=== PATIENT | male | born 1950 | race Caucasian/White ===

== ENCOUNTER 2017-07-14 07:42 | Observation (INO) ==
[2017-07-14] MEDS ORDERED: Acetaminophen 325 MG TABLET PO PRN (09:56)
[2017-07-14] MEDS ORDERED: Naloxone 0.4 MG/ML INJ IVP PRN (09:56)
--- NOTE | 2017-07-14 10:48 | Internal Med History&Physical ---
Date of Encounter: 07/14/17 Time of Encounter: 10:15 Assessment and Plan (1) Pre-syncope Current visit: Yes Status: Acute Patient presenting with presyncopal symptoms due to low blood pressure. Could be related to use of diabetic medications causing frequent urination and dehydration. We will check orthostatic blood pressure. Monitor vital signs. Monitor with telemetry. Trend troponins. Gentle hydration. (2) Coronary artery disease Current visit: Yes Status: Chronic Patient presenting with lightheadedness similar in nature to his symptoms during prior episode of coronary event. We will trend troponins. Monitor with telemetry. Continue home medications. We will get 2-D echocardiogram. Qualifiers: Coronary Disease-Associated Artery/Lesion type: [place] artery [place] vs. transplanted heart: [place] heart Associated angina: with other forms of angina Qualified Code(s): I25.118 - Atherosclerotic heart disease of [place] coronary artery with other forms of angina pectoris (3) Diabetes mellitus Current visit: Yes Status: Chronic Monitor blood sugars. Sliding scale insulin. Diabetic diet. Qualifiers: Diabetes mellitus type: type 2 Diabetes mellitus intermediate insulin use: without intermediate use Diabetes mellitus complication status: with circulatory complication Diabetes mellitus complication detail: with other circulatory complications Qualified Code(s): E11.59 - Type 2 diabetes mellitus with other circulatory complications (4) Essential hypertension Current visit: Yes Status: Chronic Monitor blood pressure. Resume Home medications if blood pressure is stable. (5) Chronic congestive heart failure Current visit: Yes Status: Chronic Not in acute exacerbation. Continue home medications. Qualifiers: Heart failure type: combined systolic and diastolic Qualified Code(s): I50.42 - Chronic combined systolic (congestive) and diastolic (congestive) heart failure (6) Atrial fibrillation and flutter Current visit: Yes Status: Suspected EKG done in the ER shows junctional rhythm. Suspect underlying atrial fibrillation. Place him on patient on telemetry. Unclear if patient has a history of A. fib. Will repeat EKG here. Get 2-D echocardiogram. (7) DVT prophylaxis Current visit: Yes Status: Acute With subcutaneous heparin Internal Medicine - H&P: HPI Chief complaint: Lightheadedness and low blood pressure Admitted From: Emergency Dept Plans for Post Hospital Care: Home History of present illness: Mr. Velásquez is a 67 year old male patient with a history of prior coronary artery disease, and CABG, cardiomyopathy, diabetes mellitus status post pacemaker and AICD placement, hypertension, hyperlipidemia presented to [place] [facility] with complaints of lightheadedness. This occurred earlier this morning when the patient was standing N home. He suddenly felt very dizzy. He sat down and checked his blood pressure and according to him it was in the 60s. He had a similar episode during a previous heart attack and was concerned about it so he took nitroglycerin and called EMS. By the time EMS came to bring him here his symptoms had completely resolved. He notes that his been having some episodes of lightheadedness over the past couple of weeks. He had been started on Jardiance 3 weeks back for his diabetes in addition to onglyza that he was already taking. He has been having frequent urination while he was on Jardiance so he stopped taking it about one week back. He also has diarrhea related to metformin use. He denies any chest pain or palpitations. No nausea or vomiting. He does get have chronic dyspnea on exertion related to his cardiomyopathy. His last 2-D echocardiogram done here in 2014 showed EF of 30-35%. He was sent over for hospitalization as the hospitalist at [facility] did not feel comfortable keeping the patient there given his prior cardiac history. Past Med Surg Social Fam HX - Past Medical History Attestation: Yes The following information was validated with the patient. Source: patient Medical history: arthritis, atrial fibrillation, cardiomyopathy, CHF, COPD, coronary artery disease, diabetes, GERD, hyperlipidemia, hypertension, migraine , myocardial infarction Psychiatric history: depression - Past Surgical History Surgical History: angioplasty/stent, coronary bypass (CABG), pacemaker/AICD - Social History Smoking Status: Former smoker Smokeless Tobacco Status: No Alcohol use: rarely Drug use: none - Family History Father Living Status: Hx Family Cardiac Disorders: Yes ([place]) Internal Medicine - H&P: Meds Aspirin [Lo-Dose Aspirin EC] 81 mg PO DAILY 12/03/15 [History] Atorvastatin [Lipitor] 80 mg PO HS 12/03/15 [History] Carvedilol 12.5 mg PO BID 12/03/15 [History] Fenofibrate [Lofibra] 160 mg PO DAILY 12/03/15 [History] Furosemide [Lasix] 40 mg PO DAILY 12/03/15 [History] Gabapentin [Neurontin] 300 mg PO TID 12/03/15 [History] Hydrocodone/Acetaminophen [[place] 5-325 Tablet] 1 each PO 3-4XD PRN #8 tablet [Rx] Metformin HCl [Glucophage] 1,000 mg PO BID 12/03/15 [History] [place]-3/Dha/Epa/Fish Oil [Fish Oil [place]-3 Softgel] 1 each PO DAILY 12/03/15 [ History] Saxagliptin HCl [Onglyza] 5 mg PO DAILY 12/03/15 [History] glipiZIDE [Glipizide] 10 mg PO DAILY 12/03/15 [History] Losartan [Cozaar] 50 mg PO DAILY 07/14/17 [History] 3 Allergy/AdvReac Type Severity Reaction Status Date / Time No Known Allergies Allergy Verified 07/14/17 05:31 All Systems PM: A 10-system review of systems was performed and is negative for pertinent findings except as documented above in the HPI. - Constitutional Constitutional: falls, no chills, no fever(s), no night sweats - EENT Eyes: no change in vision, no discharge, no pain, no photophobia Ears: no ear discharge, no ear pain, no tinnitus Nose, mouth and throat: no dysphagia, no nasal discharge, no neck pain, no sore throat - Cardiovascular Cardiovascular ROS IM: no chest pain, no diaphoresis, no dyspnea, no lightheadedness, no palpitations, no syncope - Respiratory Respiratory: no cough, no dyspnea, no wheezing, no excessive phlegm production - Gastrointestinal Gastrointestinal: no abdominal pain, no diarrhea, no hematemesis, no hematochezia, no melena, no nausea, no vomiting - Musculoskeletal Musculoskeletal ROS IM: no numbness, no tingling - Integumentary Integumentary IM: no rash, no unusual bruising - Neurological Neurological ROS: no confusion, no convulsions, no focal weakness, no numbness, no tingling, no tremor(s) - Hematologic/Lymphatic Hematologic/Lymphatic: no easy bruising - Constitutional Vitals: Temp Pulse Resp BP Pulse Ox 97.5 F L 87 16 137/96 96 07/14/17 09:25 07/14/17 09:25 07/14/17 09:25 07/14/17 09:25 07/14/17 09:25 General appearance: Present: cooperative, A&O X 3, answers questions appropriately - Neck Neck exam general surgery: Present: supple, trachea midline. Absent: lymphadenopathy - Respiratory Respiratory exam: Present: CTAB. Absent: accessory muscle use, rales, rhonchi, wheezes - Cardiovascular Cardiovascular exam: Present: RRR, +S1, +S2. Absent: diastolic murmur, gallop, rubs, systolic murmur - GI/Abdominal GI/Abdominal exam: Present: normal bowel sounds, soft, no peritoneal signs. Absent: distended, tenderness - Extremities Exam Extremities exam: Present: warm, radial pulses palpable and symmetrical. Absent : calf tenderness, cyanotic, pedal edema - Neurological Exam Neurological exam: Present: CN II-XII intact, oriented X3, no focal deficits. Absent: facial droop, speech deficit - Skin Skin exam: Present: dry, intact Internal Med - H&P Results - Labs Labs: WBC 8.5, hemoglobin 16.1, platelets 240, creatinine 1.38, troponin less than 0.03 - EKG Data -: EKG Interpreted by Myself - EKG Data EKG comments: 07/14/17 10:50 EKG done in the ER shows junctional rhythm/ Afib 07/14/17 10:54 - Impressions No acute infiltrate. Cardiomegaly
[2017-07-14] MEDS ORDERED: Ringers Solution, Lactated 1,000 ML IVC SCH (11:00)
[2017-07-14] MEDS ORDERED: Dextrose Gel 15 GM/37.5 ML TUBE PO PRN ×2 (11:10)
[2017-07-14] MEDS ORDERED: D5% in Water 1,000 ML IVC PRN (11:10)
[2017-07-14] MEDS ORDERED: *HR* Dextrose 50 % in Water (Syg) 50 ML SYRINGE IVP PRN (11:10)
[2017-07-14] MEDS: Insulin LISPRO 300 UNITS/3 ML VIAL SQ SCH ×3 (14:07→22:21)
[2017-07-14] MEDS: *HR* Heparin 5,000 UNIT/ML VIAL SQ SCH (17:29)
[2017-07-14] MEDS: *HR* HYDROcodone/Acet 5/325 mg TABLET PO PRN (17:29)
[2017-07-14] MEDS: Ipratropium/Albuterol Neb 3 ML IH PRN (18:51)
[2017-07-14] MEDS: Gabapentin 300 MG CAPSULE PO SCH (22:20)
[2017-07-15] MEDS ORDERED: GuaiFENesin/Dextromethorphan TABLET PO PRN (03:04)
[2017-07-15 05:24] LABS: Basophils # 0.1 K/mcL (0.0-0.2); Basophils % 1.2 %; Eosinophils # 0.2 K/mcL (0.0-0.6); Eosinophils % 2.5 %; Hematocrit 53.8 % (37.5-50.1); Hemoglobin 16.7 g/dL (12.9-16.9); Immature Granulocytes % 0.5 % (0-4); Lymphocytes # 2.1 K/mcL (0.6-4.6); Lymphocytes % 26.7 %; Mean Corpuscular Volume 90.3 fL (83.0-100.0); Mean Platelet Volume 11.1 fL (9.4-12.4); Monocytes # 0.8 K/mcL (0.0-1.3); Monocytes % 9.9 %; Neutrophils # 4.6 K/mcL (1.6-8.9); Nucleated Red Blood Cells 0.3 /100 WBC (0); Platelet Count 247 K/mcL (140-400); Red Blood Count 5.96 M/mcL (4.19-5.50); Red Cell Distribution Width 13.7 % (11.5-14.5); Segmented Neutrophils % 59.2 %
[2017-07-15 05:40] LABS: BUN/Creatinine Ratio 16 (6-26); Blood Urea Nitrogen 22 mg/dL (8-23); Calcium 9.2 mg/dL (8.6-10.3); Carbon Dioxide 29 mEq/L (23-29); Chloride 105 mEq/L (98-107); Chol/HDL Ratio 4.4 (0-4.9); Cholesterol 84 mg/dL (< 200); Glucose 151 mg/dL (70-105); HDL Cholesterol 19 mg/dL (40-59); LDL Cholesterol,Calculated 34 mg/dL (0-99); Osmolality,Calculated 296 (280-300); Potassium 4.4 mEq/L (3.5-5.1); Sodium 140 mEq/L (136-145); Triglycerides 153 mg/dL (< 150); eGFR For African Americans > 60 (> 60); eGFR For Non-African Americans 51 (> 60)
[2017-07-15] MEDS: *HR* Heparin 5,000 UNIT/ML VIAL SQ SCH ×2 (05:45→21:39)
[2017-07-15] MEDS: *HR* HYDROcodone/Acet 5/325 mg TABLET PO PRN (05:51)
[2017-07-15] MEDS: Fenofibrate 54 MG TABLET PO SCH (08:39)
[2017-07-15] MEDS: Gabapentin 300 MG CAPSULE PO SCH ×3 (08:39→21:43)
[2017-07-15] MEDS: Insulin LISPRO 300 UNITS/3 ML VIAL SQ SCH ×4 (08:40→21:41)
[2017-07-15] MEDS: Furosemide 40 MG TABLET PO SCH (08:40)
[2017-07-15] MEDS: Aspirin Enteric Coated 81 MG Tablet PO SCH (08:40)
[2017-07-15 10:54] LABS: Estimated Average Glucose 177 mg/dl; Hemoglobin A1C 7.8 %
[2017-07-15] MEDS: Ipratropium/Albuterol Neb 3 ML IH PRN (11:20)
--- NOTE | 2017-07-15 14:43 | Internal Med Progress Note ---
Date of Encounter: 07/15/17 Time of Encounter: 14:41 - Assessment and plan (1) Pre-syncope Current Visit: Yes Status: Acute Assessment and plan: Symptoms seems to be secondary to hypotension and dehydration. Patient has been hydrated. He is not orthostatic this morning. Blood pressure stable. Also afib on monitor but rate controlled. The patient feels well this morning. Follow up on echocardiogram. May DC after echocardiogram is read. Consider stopping losartan at discharge pending echo results. (2) NEHEMIAH (acute kidney injury) Current Visit: Yes Status: Acute Assessment and plan: The patient has creatinine of 1.38 which is above his baseline. He received 1 L normal saline. We will see what his labs back tomorrow. Hold nephrotoxins. Patient possibly dehydrated. Says he has been having increased urine output since he was put on a medication for diabetes. (3) Coronary artery disease Current Visit: Yes Status: Chronic Assessment and plan: Continue aspirin, statin, beta vonnie. Qualifiers: Coronary Disease-Associated Artery/Lesion type: [place] artery [place] vs. transplanted heart: [place] heart Associated angina: with other forms of angina Qualified Code(s): I25.118 - Atherosclerotic heart disease of [place] coronary artery with other forms of angina pectoris (4) Essential hypertension Current Visit: Yes Status: Chronic Assessment and plan: The patient's blood pressure stable. Given the fact that he has been having blood pressure in the 60s at home. I am inclined to DC his losartan. May keep him on his beta vonnie for now at the current dose given his history of coronary disease. (5) DVT prophylaxis Current Visit: Yes Status: Acute Assessment and plan: Heparin subcutaneous (6) Afib Current Visit: Yes Status: Acute Assessment and plan: Has afib on the monitor. Tells me he has a history of it. Can't tell me why he is not on anticoagulation and how long he was diagnosed. He is rate controlled. Will check an EKG. The patient has a [id number] score of at least 3. I think it is ok to start him on eliquis. Qualifiers: Atrial fibrillation type: paroxysmal Qualified Code(s): I48.0 - Paroxysmal atrial fibrillation - Subjective Interval history: Patient was seen and examined. No acute events overnight. The patient was admitted as a transfer from [facility] with complaints of lightheadedness. Symptoms have been going on in the morning at home when he stands up. He checked his blood pressure room and was in the 60s systolically. Feels well right now. - Constitutional Vitals: Temp Pulse Resp BP Pulse Ox 98.3 F 88 16 120/77 95 07/15/17 11:44 07/15/17 11:44 07/15/17 11:44 07/15/17 11:44 07/15/17 11:44 General appearance: Present: cooperative, A&O X 3, answers questions appropriately Exam: GEN: NAD CVS: RRR. S1, S2, No m/r/g RESP: CTAB ABD: Soft, NT, ND, +BS EXT: No edema. 2+ DP. No rashes NEURO: Nonfocal. I walked the patient personally down to hold. He is showed no signs of any weakness or been wobbly. Internal Medicine: Result - Labs CBC & Chem 7: 07/15/17 04:53 07/15/17 04:53 Labs: Short CBC 07/15/17 Range/Units 04:53 WBC 7.7 (4.3-11.1) K/mcL Hgb 16.7 (12.9-16.9) g/dL Hct 53.8 H (37.5-50.1) % Plt Count 247 (140-400) K/mcL Neutrophils # 4.6 (1.6-8.9) K/mcL BMP 07/15/17 04:53 Sodium 140 Potassium 4.4 Chloride 105 Carbon Dioxide 29 BUN 22 Creatinine 1.38 H Glucose 151 H Calcium 9.2 Cardiac Enzymes 07/14/17 Range/Units 17:11 Troponin I < 0.03 (< 0.04) ng/mL Consult Discharge Plan - Plan Referrals: Esther Lamar, [facility] [place] [Primary Care Provider] - Prescriptions: Apixaban [Eliquis] 5 mg PO BID #60 tablet
[2017-07-15] MEDS ORDERED: Perflutren Lipid Microsphere 1.3 ML in 0.9 % Sodium Chloride 8.7 ML IVP ONE (14:44)
--- NOTE | 2017-07-15 14:48 | Discharge Summary ---
Orders not resulted at time of discharge: Pending orders 07/14/17 11:06 EV echocardiogram w enhance Routine 07/16/17 04:00 BMP [Basic Metabolic Panel] AM 0400 Complete Blood Count [HEME] AM 0400 Magnesium AM 0400 Date of Encounter: 07/18/17 Time of Encounter: 14:47 - Discharge Diagnosis (1) Pre-syncope Priority: Primary Status: Acute (2) NEHEMIAH (acute kidney injury) Priority: Primary Status: Acute (3) Coronary artery disease Priority: Secondary Status: Chronic Qualifiers: Coronary Disease-Associated Artery/Lesion type: [place] artery [place] vs. transplanted heart: [place] heart Associated angina: with other forms of angina Qualified Code(s): I25.118 - Atherosclerotic heart disease of [place] coronary artery with other forms of angina pectoris (4) Essential hypertension Priority: Secondary Status: Chronic Hospital course: Mr. Velásquez is a 67 year old male with a history of prior coronary artery disease , and CABG, cardiomyopathy, diabetes mellitus status post pacemaker and AICD placement, hypertension, hyperlipidemia presented to [facility] with complaints of lightheadedness. This occurred when the patient was standing at home. He suddenly felt very dizzy. He sat down and checked his blood pressure and according to him it was in the 60s. He had a similar episode during a previous heart attack and was concerned about it so he took nitroglycerin and called EMS. By the time EMS came to bring him here his symptoms had completely resolved. He notes that his been having some episodes of lightheadedness over the past couple of weeks. He had been started on Jardiance 3 weeks back for his diabetes in addition to onglyza that he was already taking. He has been having frequent urination while he was on Jardiance so he stopped taking it about one week back. He also has diarrhea related to metformin use. The patient was admitted for hypotension and initially was given IV fluids. Unfortunately this tipped him into volume overload. His antihypertensives were held. Echocardiogram was done which showed an EF of 15-20%. The patient has a history of ICD. This was interoggated with no issues. The patient was discharge after diuresis and recommended f/u with cardiology and PCP. Discharged on 07/18. - Time Spent with Patient Total time spent providing and/or coordinating discharge services: Greater than 30 minutes - Discharge Medications Prescriptions: Apixaban [Eliquis] 5 mg PO BID #60 tablet Losartan [Cozaar] 25 mg PO DAILY #30 tablet Home Medications: Aspirin [Lo-Dose Aspirin EC] 81 mg PO DAILY 12/03/15 [History] Atorvastatin [Lipitor] 80 mg PO HS 12/03/15 [History] Carvedilol 12.5 mg PO BID 12/03/15 [History] Fenofibrate [Lofibra] 160 mg PO DAILY 12/03/15 [History] Furosemide [Lasix] 40 mg PO DAILY 12/03/15 [History] Gabapentin [Neurontin] 300 mg PO TID 12/03/15 [History] Metformin HCl [Glucophage] 1,000 mg PO BID 12/03/15 [History] Saxagliptin HCl [Onglyza] 5 mg PO DAILY 12/03/15 [History] glipiZIDE [Glipizide] 10 mg PO DAILY 12/03/15 [History] Apixaban [Eliquis] 5 mg PO BID #60 tablet 07/15/17 [Rx] Xyzal 5 mg PO DAILY 07/15/17 [History] Losartan [Cozaar] 25 mg PO DAILY #30 tablet 07/18/17 [Rx] Allergies/Adverse Reactions: 3 Allergy/AdvReac Type Severity Reaction Status Date / Time No Known Allergies Allergy Verified 07/15/17 14:11 Date of admission: 07/14/17 08:33 Primary care physician: Esther Lamar CNP - Constitutional Vitals: Temp Pulse Resp BP Pulse Ox 98.3 F 88 16 120/77 95 07/15/17 11:44 07/15/17 11:44 07/15/17 11:44 07/15/17 11:44 07/15/17 11:44 General appearance: Present: cooperative, A&O X 3, answers questions appropriately Exam: GEN: NAD CVS: RRR. S1, S2, No m/r/g RESP: CTAB ABD: Soft, NT, ND, +BS EXT: No edema. 2+ DP. No rashes NEURO: Nonfocal. I walked the patient personally down to hold. He is showed no signs of any weakness or been wobbly. - Patient Status Disposition: Home, Self-Care Condition: Fair Overall status at discharge: patient is progressing back to baseline - Discharge Instructions Instructions: Heart Failure (DC), Atrial Flutter (DC), Atrial Fibrillation (DC) , Syncope (DC), Diabetes Mellitus Type 2 in Adults (DC) Follow Up With: Esther Lamar CNP [Primary Care Provider] - 07/19/17 10:15 am - Diet and Activity Activity: increase activity as tolerated Diet: diabetic diet, low salt diet
--- NOTE | 2017-07-15 16:02 | Event Note ---
Date of Encounter: 07/15/17 Time of Encounter: 16:01 Echo with EF 15-20%. He has an AICD in place since 2014, per the patient. No signs of volume overload. . Will ask cardiology to see the patient. Hold Eliquis for now
--- NOTE | 2017-07-15 16:18 | Event Note ---
Date of Encounter: 07/15/17 Time of Encounter: 16:17 Echo came back with EF of 15-20%. Will have cardiology see the patient tomorrow am. He has an AICD in place. No signs of volume overload.
[2017-07-16 04:54] LABS: Basophils # 0.1 K/mcL (0.0-0.2); Basophils % 0.7 %; Eosinophils # 0.2 K/mcL (0.0-0.6); Eosinophils % 2.1 %; Hematocrit 50.8 % (37.5-50.1); Hemoglobin 15.7 g/dL (12.9-16.9); Immature Granulocytes % 0.4 % (0-4); Lymphocytes # 1.9 K/mcL (0.6-4.6); Lymphocytes % 25.8 %; Mean Corpuscular HGB Conc 30.9 g/dL (31.6-35.5); Mean Corpuscular Hemoglobin 27.5 pg (28.0-33.3); Mean Corpuscular Volume 89.1 fL (83.0-100.0); Mean Platelet Volume 11.1 fL (9.4-12.4); Monocytes # 0.9 K/mcL (0.0-1.3); Monocytes % 12.7 %; Neutrophils # 4.2 K/mcL (1.6-8.9); Platelet Count 241 K/mcL (140-400); Red Cell Distribution Width 13.9 % (11.5-14.5); Segmented Neutrophils % 58.3 %
[2017-07-16 05:11] LABS: BUN/Creatinine Ratio 17 (6-26); Blood Urea Nitrogen 22 mg/dL (8-23); Carbon Dioxide 28 mEq/L (23-29); Chloride 104 mEq/L (98-107); Glucose 150 mg/dL (70-105); Osmolality,Calculated 290 (280-300); Potassium 4.3 mEq/L (3.5-5.1); Sodium 137 mEq/L (136-145); eGFR For African Americans > 60 (> 60); eGFR For Non-African Americans 54 (> 60)
[2017-07-16] MEDS: *HR* Heparin 5,000 UNIT/ML VIAL SQ SCH (06:08)
--- NOTE | 2017-07-16 07:30 | Electrocardiograph Report ---
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
[2017-07-16] MEDS: Insulin LISPRO 300 UNITS/3 ML VIAL SQ SCH ×4 (09:29→21:36)
[2017-07-16] MEDS: Furosemide 40 MG TABLET PO SCH (09:30)
[2017-07-16] MEDS: Aspirin Enteric Coated 81 MG Tablet PO SCH (09:30)
[2017-07-16] MEDS: Gabapentin 300 MG CAPSULE PO SCH ×3 (09:30→21:36)
[2017-07-16] MEDS: Fenofibrate 54 MG TABLET PO SCH (09:30)
--- NOTE | 2017-07-16 13:24 | Cardiology Consult Note ---
Date of Encounter: 07/16/17 Time of Encounter: 11:30 Assessment and Plan (1) Pre-syncope Current Visit: Yes Status: Acute Secondary to hypotension per patient at home. No significant hypotension seen here. Check orthostatic b/p. Noted to have new rate controlled atrial flutter. No significant bradycardia, pauses or VT. Device check completed shows no other concerning arrhythmias. Device measurements within expected range. Continue to monitor with discontinuation of jardiance. (2) Chronic congestive heart failure Current Visit: Yes Status: Chronic Acute on chronic systolic CHF, TTE shows EF 15-20%. Severe LV systolic dysfunction with global and regional variations. Indeterminate diastolic function. There is no LV thrombus. Definity echo contrast was used. RV is not well visualized. Bi-atrial enlargement. Mild mitral regurgitation. Moderate tricuspid regurgitation. Mild pulmonary hypertension. Last TTE in 2014 showed EF 30-35%. MUGA showed EF 22%. S/p ICD. C/o 18 lb weight gain, orthopnea, SOB, and BLE edema. Noted to have fluid overload on exam. C/o worsening symptoms during stay and since starting new diabetes medication. Increased weight gain despite excessive urination. Initial concern for dehydration due to excessive urination and gentle IV fluid given. Likely multifactoral in the setting of CHF and NEHEMIAH. No significant improvement in kidney function seen. I&O shows fluid status net +1400 ml. Reports poor compliance with low sodium diet. Start IV lasix 40 mg IV once this afternoon. Check BNP. Re-check CXR. Monitor BMP. CHF education reviewed. Low sodium diet. Daily weights. Strict I&O. Qualifiers: Heart failure type: combined systolic and diastolic Qualified Code(s): I50.42 - Chronic combined systolic (congestive) and diastolic (congestive) heart failure (3) Atrial flutter Current Visit: Yes Status: Acute Rate controlled atrial flutter noted on EKG and telemetry. No previous history documented. Avg HR 90 bpm. Min HR 57 bpm. Maximum HR 115. Started on eliquis per primary team. Eliquis 5 mg BID is recommended. Qualifiers: Atrial flutter type: unspecified Qualified Code(s): I48.92 - Unspecified atrial flutter (4) Coronary artery disease Current Visit: Yes Status: Chronic H/o CABG x3 in 2006. Continue asa, statin, and bb. Denies chest pain. Troponin negative x3. Qualifiers: Coronary Disease-Associated Artery/Lesion type: [place] artery [place] vs. transplanted heart: [place] heart Associated angina: with other forms of angina Qualified Code(s): I25.118 - Atherosclerotic heart disease of [place] coronary artery with other forms of angina pectoris Discussion w patient/family: The assessment and plan as outlined above was discussed with the patient and/or family members who expressed understanding and agreement. All questions were answered. Thank you for involving us in the care of your patient. Please call with any questions. History of Present Illness Consult date: 07/16/17 Requesting physician: Nivia Gonsalves Consult reason: cardiomyopathy Chief complaint: dizziness, hypotension History of present illness: Mr. Velásquez is a 67 year old male with past medical history of CABG in 2006, ischemic cardiomyopathy (EF 22% on MUGA 2014), ICD, DM type II, HTN, lung nodule , GUILLERMO compliant with sleep apnea. He presented with the c/o dizziness and diaphoresis. He was laying in bed when he felt dizzy. He sat up and took his blood pressure and found it to be 60/50 (per patient). Due to concern for having dizziness with previous ND he took one SL NTG and then tried to walk to the bathroom. He experienced increased dizziness with standing and ambulating. He also c/o a warm feeling coming over him. This prompted him to go to the ED. He reports starting Jaurdiance three weeks ago. He noted dizziness in the first week of starting it. He also c/o excessive urination. Despite his excessive urination he reports gaining 18 lbs, SOB, BLE edema, and orthopnea. He took a extra lasix with no relief. He initially presented to [place] ED. Chest x-ray showed cardiomegly without CHF. Troponin was negative. He was transferred to [facility] for further evaluation. Past Med Surg Social Fam HX - Past Medical History Medical history: arthritis, atrial fibrillation, cardiomyopathy, CHF, COPD, coronary artery disease, diabetes, GERD, hyperlipidemia, hypertension, migraine , myocardial infarction Psychiatric history: depression - Past Surgical History Surgical History: angioplasty/stent, coronary bypass (CABG), pacemaker/AICD - Social History Smoking Status: Former smoker Smokeless Tobacco Status: No Alcohol use: rarely Drug use: none - Family History Father Living Status: Hx Family Cardiac Disorders: Yes (ND) Medications and Allergies Aspirin [Lo-Dose Aspirin EC] 81 mg PO DAILY 12/03/15 [History] Atorvastatin [Lipitor] 80 mg PO HS 12/03/15 [History] Carvedilol 12.5 mg PO BID 12/03/15 [History] Fenofibrate [Lofibra] 160 mg PO DAILY 12/03/15 [History] Furosemide [Lasix] 40 mg PO DAILY 12/03/15 [History] Gabapentin [Neurontin] 300 mg PO TID 12/03/15 [History] Metformin HCl [Glucophage] 1,000 mg PO BID 12/03/15 [History] Saxagliptin HCl [Onglyza] 5 mg PO DAILY 12/03/15 [History] glipiZIDE [Glipizide] 10 mg PO DAILY 12/03/15 [History] Apixaban [Eliquis] 5 mg PO BID #60 tablet 07/15/17 [Rx] Xyzal 5 mg PO DAILY 07/15/17 [History] 3 Allergy/AdvReac Type Severity Reaction Status Date / Time No Known Allergies Allergy Verified 07/15/17 14:11 All Systems Review: The remainder of the systems were reviewed and are negative Physical Examination Vital Signs, Last 4 Hours Temp Pulse Resp BP Pulse Ox 07/16/17 12:10 98.3 F 92 14 108/68 94 07/16/17 11:24 98.1 F 87 14 180/94 96 General: Conversant, No Apparent Distress HEENT: Atraumatic, Normocephaly, Mucus Membranes Moist Neck: No JVD, Normal carotid pulses Cardiac: Other (Irregular) Lungs: Normal Breath Sounds, No Wheeze, Rales, Rhonchi, Other (dminished bases) Neuro: Alert and responsive, No focal deficits noted Abdomen: Soft, Non-Tender, Other (Large, distended.) Skin: No rashes noted on visualized skin Musculoskeletal: No Chest Wall Tenderness Extremities: No Clubbing, No Cyanosis, Normal Pulses, Other (1+ pitting edema up to his knees. ) Results 07/16/17 03:53 07/16/17 03:53 Lab Results 07/16/17 07/16/17 03:53 03:53 WBC 7.3 Hgb 15.7 Hct 50.8 H Plt Count 241 Sodium 137 Potassium 4.3 Chloride 104 Carbon Dioxide 28 BUN 22 Creatinine 1.32 H Glucose 150 H Calcium 9.0 Magnesium 2.0 - Imaging and Cardiology Echo: report reviewed - EKG Interpretation EKG results cardiology: personally reviewed Consult Discharge Plan - Plan Referrals: Esther Lamar CNP [Primary Care Provider] - Prescriptions: Apixaban [Eliquis] 5 mg PO BID #60 tablet
[2017-07-16] MEDS ORDERED: Furosemide 40 MG/4 ML VIAL IVP ONE (14:04)
--- NOTE | 2017-07-16 14:17 | Internal Med Progress Note ---
Date of Encounter: 07/16/17 Time of Encounter: 14:14 - Assessment and plan (1) Pre-syncope Current Visit: Yes Status: Acute Assessment and plan: Symptoms seems to be secondary to hypotension and dehydration. Patient has been hydrated. He is not orthostatic anymore. Blood pressure stable. Also afib on monitor but rate controlled. The patient feels well this morning. Echocardiogram with an EF 15-20% which cardiology is consulted. (2) Acute exacerbation of congestive heart failure Current Visit: Yes Status: Acute Assessment and plan: This is an acute exacerbation of systolic heart failure. Treatment per cardiology. Will be given a dose of Lasix 40 mg IV today. Monitor I&O's. Cardiac meds per cardiology. Qualifiers: Heart failure type: systolic Qualified Code(s): I50.23 - Acute on chronic systolic (congestive) heart failure (3) NEHEMIAH (acute kidney injury) Current Visit: Yes Status: Acute Assessment and plan: The patient has creatinine of 1.32 today. I believe the patient has chronic kidney disease. This may be his baseline. which is above his baseline. The last creatinine we have on record is back in 2014 and it was 1.08. Hold nephrotoxins. (4) Coronary artery disease Current Visit: Yes Status: Chronic Assessment and plan: Continue aspirin, statin, beta vonnie. Qualifiers: Coronary Disease-Associated Artery/Lesion type: [place] artery [place] vs. transplanted heart: [place] heart Associated angina: with other forms of angina Qualified Code(s): I25.118 - Atherosclerotic heart disease of [place] coronary artery with other forms of angina pectoris (5) Essential hypertension Current Visit: Yes Status: Chronic Assessment and plan: The patient's blood pressure stable. Given the fact that he has been having blood pressure in the 60s at home. I am inclined to DC his losartan. May keep him on his beta vonnie for now at the current dose given his history of coronary disease. (6) Afib Current Visit: Yes Status: Acute Assessment and plan: Has afib on the monitor. Tells me he has a history of it. Can't tell me why he is not on anticoagulation and how long he was diagnosed. He is rate controlled. The patient has a [id number] score of at least 3. Started on eliquis. Qualifiers: Atrial fibrillation type: paroxysmal Qualified Code(s): I48.0 - Paroxysmal atrial fibrillation (7) DVT prophylaxis Current Visit: Yes Status: Acute Assessment and plan: Heparin subcutaneous - Subjective Interval history: Patient was seen and examined. No acute events overnight. Says he is feeling well. Echocardiogram done yesterday showed an EF of 15-20%. The patient was admitted as a transfer from [place] with complaints of lightheadedness. Symptoms have been going on in the morning at home when he stands up. He checked his blood pressure room and was in the 60s systolically. - Constitutional Vitals: Temp Pulse Resp BP Pulse Ox 98.3 F 92 14 108/68 94 07/16/17 12:10 07/16/17 12:10 07/16/17 12:10 07/16/17 12:10 07/16/17 12:10 General appearance: Present: cooperative, A&O X 3, answers questions appropriately Exam: GEN: NAD CVS: RRR. S1, S2, No m/r/g RESP: CTAB ABD: Soft, NT, ND, +BS EXT: 1+ edema. 2+ DP. No rashes NEURO: Nonfocal. . Internal Medicine: Result - Labs CBC & Chem 7: 07/16/17 03:53 07/16/17 03:53 Labs: Short CBC 07/16/17 Range/Units 03:53 WBC 7.3 (4.3-11.1) K/mcL Hgb 15.7 (12.9-16.9) g/dL Hct 50.8 H (37.5-50.1) % Plt Count 241 (140-400) K/mcL Neutrophils # 4.2 (1.6-8.9) K/mcL BMP 07/16/17 03:53 Sodium 137 Potassium 4.3 Chloride 104 Carbon Dioxide 28 BUN 22 Creatinine 1.32 H Glucose 150 H Calcium 9.0 - Impressions Impressions Echocardiogram 07/15/17 11:06 Impressions: LVEF 15-20%. Severe LV systolic dysfunction with global and regional variations. Indeterminate diastolic function. There is no LV thrombus. Definity echo contrast was used. RV is not well visualized. Bi-atrial enlargement. Mild mitral regurgitation. Moderate tricuspid regurgitation. Mild pulmonary hypertension. Left Ventricular Wall Motion: Rest Echo Findings The apex, apical inferior, mid inferior, basal inferior, apical septal, mid inferior septal, basal inferior septal, apical lateral, mid anterior lateral, basal anterior lateral, mid anterior septal, mid inferior lateral, basal anterior septal and basal inferior lateral young were hypokinetic. The apical anterior, mid anterior and basal anterior young were not visualized. Findings: Study Quality * Technically sub-optimal due to poor echocardiographic windows. ECG Findings * Atrial fibrillation. Left Ventricle * Indeterminate diastolic function. * LVEF 15-20%. * There is no LV thrombus. * Definity echo contrast was used. * Normal LV size. * Wall thickness appears normal. Right Ventricle * RV is not well visualized. Left Atrium * Moderate-severely dilated left atrium. Right Atrium * Moderate-severely dilated right atrium. Aortic Valve * No aortic regurgitation. * Aortic valve not well visualized. * No aortic stenosis. Mitral Valve * Normal mitral valve structure. * No mitral stenosis. * Mild mitral regurgitation. Tricuspid Valve * Tricuspid valve not well visualized. * Moderate tricuspid regurgitation. * Estimated RA pressure is 20 mmHg. * Estimated RVSP is 45 mmHg. * Mild pulmonary hypertension. Pulmonic Valve * Pulmonic valve is not well visualized. * No pulmonic stenosis. * No pulmonic regurgitation. Pulmonary Artery * Pulmonary artery not well visualized. Aorta * Normally sized aortic root. Pericardium * There is no pericardial effusion present. Device lead * A device lead was visualized in the right atrium and right ventricle. Interatrial Septum * No evidence of PFO by color Doppler. IVC * The IVC is dilated. * < 50% respiratory change. Consult Discharge Plan - Plan Referrals: Esther Lamar, DIRECTOR OF QUALITY CONTROL [Primary Care Provider] - Prescriptions: Apixaban [Eliquis] 5 mg PO BID #60 tablet
[2017-07-16] MEDS: Ipratropium/Albuterol Neb 3 ML IH PRN (14:56)
[2017-07-16] MEDS: Apixaban 5 MG TABLET PO SCH (21:35)
--- NOTE | 2017-07-17 06:20 | Electrocardiograph Report ---
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
--- NOTE | 2017-07-17 07:56 | Internal Med Progress Note ---
Date of Encounter: 07/17/17 Time of Encounter: 07:54 - Assessment and plan (1) Pre-syncope Current Visit: Yes Status: Acute Assessment and plan: Symptoms seems to be secondary to hypotension and dehydration. Patient has been hydrated. He is not orthostatic anymore. Blood pressure stable. Also afib on monitor but rate controlled. The patient feels well this morning. Echocardiogram with an EF 15-20% which cardiology is consulted. (2) Acute exacerbation of congestive heart failure Current Visit: Yes Status: Acute Assessment and plan: This is an acute exacerbation of systolic heart failure. Patient is not compliant with salt intake. Treatment per cardiology. Received 40 mg of Lasix yesterday. I think he can use more Lasix today. We will wait for labs this morning and see what his kidney numbers look like. There remains stable another 40 mg of Lasix IV today. Monitor I&O's. Cardiac meds per cardiology. Qualifiers: Heart failure type: systolic Qualified Code(s): I50.23 - Acute on chronic systolic (congestive) heart failure (3) NEHEMIAH (acute kidney injury) Current Visit: Yes Status: Acute Assessment and plan: The patient has creatinine has been around 1.3-1.4. I believe the patient has chronic kidney disease. This may be his baseline. Await labs this morning. The last creatinine we have on record is back in 2014 and it was 1.08. Hold nephrotoxins. (4) Coronary artery disease Current Visit: Yes Status: Chronic Assessment and plan: Continue aspirin, statin, beta vonnie. Qualifiers: Coronary Disease-Associated Artery/Lesion type: [place] artery [place] vs. transplanted heart: [place] heart Associated angina: with other forms of angina Qualified Code(s): I25.118 - Atherosclerotic heart disease of [place] coronary artery with other forms of angina pectoris (5) Essential hypertension Current Visit: Yes Status: Chronic Assessment and plan: The patient's blood pressure stable. Given the fact that he has been having blood pressure in the 60s at home. I am inclined to DC his losartan. May keep him on his beta vonnie for now at the current dose given his history of coronary disease. (6) Afib Current Visit: Yes Status: Acute Assessment and plan: Has afib on the monitor. Tells me he has a history of it. Can't tell me why he is not on anticoagulation and how long he was diagnosed. He is rate controlled. The patient has a [id number] score of at least 3. Started on eliquis. Qualifiers: Atrial fibrillation type: paroxysmal Qualified Code(s): I48.0 - Paroxysmal atrial fibrillation (7) DVT prophylaxis Current Visit: Yes Status: Acute Assessment and plan: Heparin subcutaneous - Subjective Interval history: Patient was seen and examined. No acute events overnight. He diuresed well after 40 mg of Lasix. He is down about 4-5 pounds. Received 40 mg of Lasix yesterday. Currently on room air. Says he usually weighs about 250-255 pounds. Today he is at 268 pounds. Echocardiogram done yesterday showed an EF of 15-20%. The patient was admitted as a transfer from [place] with complaints of lightheadedness. Symptoms have been going on in the morning at home when he stands up. He checked his blood pressure room and was in the 60s systolically. - Constitutional Vitals: Temp Pulse Resp BP Pulse Ox 97.6 F 101 16 107/75 94 07/17/17 07:18 07/17/17 07:18 07/17/17 07:18 07/17/17 07:18 07/17/17 07:18 General appearance: Present: cooperative, A&O X 3, answers questions appropriately Exam: GEN: NAD CVS: RRR. S1, S2, No m/r/g RESP: CTAB ABD: Soft, NT, ND, +BS EXT: 1+ edema. 2+ DP. No rashes NEURO: Nonfocal. . Internal Medicine: Result - Labs CBC & Chem 7: 07/16/17 03:53 07/16/17 03:53 - Impressions Impressions Chest X-Ray 07/16/17 13:26 IMPRESSION: Stable chest with no new acute cardiopulmonary findings. D/ / 07/16/2017 15:30:26 Brenda Mccauley MD / Ketty Malik Interpreting Provider: Brenda Mccauley MD Consult Discharge Plan - Plan Referrals: Esther Lamar, LPN RN HOSPICE [Primary Care Provider] - Prescriptions: Apixaban [Eliquis] 5 mg PO BID #60 tablet
[2017-07-17 08:52] LABS: BUN/Creatinine Ratio 18 (6-26); Blood Urea Nitrogen 24 mg/dL (8-23); Carbon Dioxide 30 mEq/L (23-29); Chloride 103 mEq/L (98-107); Glucose 174 mg/dL (70-105); Osmolality,Calculated 298 (280-300); Sodium 140 mEq/L (136-145); eGFR For African Americans > 60 (> 60); eGFR For Non-African Americans 54 (> 60)
[2017-07-17] MEDS: Gabapentin 300 MG CAPSULE PO SCH ×3 (09:05→19:49)
[2017-07-17] MEDS: Aspirin Enteric Coated 81 MG Tablet PO SCH (09:05)
[2017-07-17] MEDS: Apixaban 5 MG TABLET PO SCH ×2 (09:06→19:48)
[2017-07-17] MEDS: Furosemide 40 MG TABLET PO SCH (09:06)
[2017-07-17] MEDS: Fenofibrate 54 MG TABLET PO SCH (09:06)
[2017-07-17] MEDS: Insulin LISPRO 300 UNITS/3 ML VIAL SQ SCH ×4 (09:08→21:20)
[2017-07-17] MEDS: Ipratropium/Albuterol Neb 3 ML IH PRN ×2 (10:22→21:31)
[2017-07-17] MEDS ORDERED: Furosemide 40 MG/4 ML VIAL IVP ONE ×2 (10:49→11:38)
--- NOTE | 2017-07-17 13:02 | Cardiology Progress Note ---
Date of Encounter: 07/17/17 Time of Encounter: 12:00 Assessment and Plan (1) Pre-syncope Current Visit: Yes Status: Acute Secondary to hypotension per patient at home. No significant hypotension seen here. Check orthostatic b/p. Noted to have new rate controlled atrial flutter. No significant bradycardia, pauses or VT. Device check completed shows no other concerning arrhythmias. Device measurements within expected range. Continue to monitor with discontinuation of jardiance. (2) Chronic congestive heart failure Current Visit: Yes Status: Chronic Acute on chronic systolic CHF, TTE shows EF 15-20%. Severe LV systolic dysfunction with global and regional variations. Indeterminate diastolic function. There is no LV thrombus. Definity echo contrast was used. RV is not well visualized. Bi-atrial enlargement. Mild mitral regurgitation. Moderate tricuspid regurgitation. Mild pulmonary hypertension. Last TTE in 2014 showed EF 30-35%. MUGA showed EF 22%. S/p ICD. C/o 18 lb weight gain yesterday, orthopnea, SOB, and BLE edema. Noted to have fluid overload on exam. Iv lasix dose given and he tolerated and responded well. Repeat today. Continued to have symptoms and BLE edema R>L. I&O shows fluid status net +50 Reports poor compliance with low sodium diet. Long conversation regarding diet. BNP only mildly elevated. CXR showed no concerning findings. ICD check showed mild fluid increase. Kidney function stable. I will give IV lasix x1 again. Close to baseline. Repeat as needed. Strict I&O and daily weights. Close out-pt f/u will be scheduled with [facility]. Cardiology will sign off. Call with questions. Qualifiers: Heart failure type: combined systolic and diastolic Qualified Code(s): I50.42 - Chronic combined systolic (congestive) and diastolic (congestive) heart failure (3) Atrial flutter Current Visit: Yes Status: Acute Rate controlled atrial flutter noted on EKG and telemetry. No previous history documented. Avg HR 94 bpm. Min HR 57 bpm. Maximum HR 115. Started on eliquis per primary team. Eliquis 5 mg BID is recommended. Qualifiers: Atrial flutter type: unspecified Qualified Code(s): I48.92 - Unspecified atrial flutter (4) Coronary artery disease Current Visit: Yes Status: Chronic H/o CABG x3 in 2006. Continue asa, statin, and bb. Denies chest pain. Troponin negative x3. Qualifiers: Coronary Disease-Associated Artery/Lesion type: [place] artery [place] vs. transplanted heart: [place] heart Associated angina: with other forms of angina Qualified Code(s): I25.118 - Atherosclerotic heart disease of [place] coronary artery with other forms of angina pectoris Discussion w patient/family: The assessment and plan as outlined above was discussed with the patient and/or family members who expressed understanding and agreement. All questions were answered. Thank you for involving us in the care of your patient. Please call with any questions. Subjective Principal diagnosis: CHF, pre-syncope Interval history: Mr. Velásquez continues to have abdominal distention, and SOB when bending over. BLE edema mildly improved. Objective Vital Signs, Last 4 Hours Temp Pulse Resp BP Pulse Ox 07/17/17 11:20 98.0 F 92 18 103/78 93 07/17/17 10:24 16 94 07/17/17 09:04 120/76 General: Conversant, No Apparent Distress HEENT: Atraumatic, Normocephaly, Mucus Membranes Moist Neck: No JVD, Normal carotid pulses Cardiac: Other (Irregular) Lungs: Normal Breath Sounds, No Wheeze, Rales, Rhonchi Neuro: Alert and responsive, No focal deficits noted Abdomen: Soft, Non-Tender, Other (large round and distended) Skin: No rashes noted on visualized skin Musculoskeletal: No Chest Wall Tenderness Extremities: No Clubbing, No Cyanosis, Normal Pulses, Other (1+ pitting edema BLE ) Results 07/16/17 03:53 07/17/17 08:19 Lab Results 07/16/17 07/17/17 13:33 08:19 Sodium 140 Potassium 4.0 Chloride 103 Carbon Dioxide 30 H BUN 24 H Creatinine 1.32 H Glucose 174 H Calcium 9.0 B-Natriuretic Peptide 181 H - Imaging and Cardiology Echo: report reviewed - EKG Interpretation EKG results cardiology: personally reviewed Consult Discharge Plan - Plan Referrals: Esther Lamar, VIRGILIO [Primary Care Provider] - 07/19/17 10:15 am Prescriptions: Apixaban [Eliquis] 5 mg PO BID #60 tablet
[2017-07-17] MEDS ORDERED: Furosemide 40 MG/4 ML VIAL IVP SCH (21:00)
[2017-07-18 04:20] LABS: BUN/Creatinine Ratio 19 (6-26); Blood Urea Nitrogen 26 mg/dL (8-23); Calcium 8.8 mg/dL (8.6-10.3); Carbon Dioxide 32 mEq/L (23-29); Chloride 100 mEq/L (98-107); Glucose 156 mg/dL (70-105); Osmolality,Calculated 294 (280-300); Potassium 3.8 mEq/L (3.5-5.1); Sodium 138 mEq/L (136-145); eGFR For African Americans > 60 (> 60); eGFR For Non-African Americans 52 (> 60)
[2017-07-18 07:07] VITALS: BP 108/73
== END 2017-07-18 09:57 | disposition home or self-care (01) ==
LOC: 3NENU → 3BNU 19:05
PROVIDERS: ADMIT Internal Medicine; ATTEND Internal Medicine

== ENCOUNTER 2017-12-18 14:25 | Observation (INO) ==
--- NOTE | 2017-12-18 15:35 | IR Procedure Note ---
Date of procedure: 12/18/17 Consent Obtained: Written consent Timeout: Correct patient and procedure verified, Time out performed, Skin prep completed Local anesthetic: Lidocaine 1% Indications: Abdominal distention with SOB and ascites Procedure Performed: Paracentesis Was there an retail sales assistant present: No Estimated blood loss (cc): 0 Complications: None; Tolerated procedure well Post Procedure Treatment Plan: Monitor on floor Specimen: Sample fluid sent
[2017-12-18 16:05] LABS: Alanine Aminotransferase 13 Units/L (7-52); Albumin 3.4 g/dL (3.5-5.7); Albumin/Globulin Ratio 1.1 (1.1-2.2); Alkaline Phosphatase 150 Units/L (34-104); Aspartate Amino Transferase 31 Units/L (13-39); BUN/Creatinine Ratio 20 (6-26); Bilirubin,Total 2.3 mg/dL (0.3-1.0); Blood Urea Nitrogen 21 mg/dL (8-23); Calcium 9.1 mg/dL (8.6-10.3); Carbon Dioxide 31 mEq/L (23-29); Chloride 101 mEq/L (98-107); Glucose 115 mg/dL (70-105); Osmolality,Calculated 288 (280-300); Potassium 3.9 mEq/L (3.5-5.1); Sodium 137 mEq/L (136-145); Total Protein 6.4 g/dL (6.4-8.9); eGFR For Non-African Americans > 60 (> 60)
[2017-12-18 17:13] LABS: Basophils # 0.1 K/mcL (0.0-0.2); Basophils % 1.3 %; Eosinophils # 0.2 K/mcL (0.0-0.6); Eosinophils % 3.3 %; Hematocrit 54.1 % (37.5-50.1); Hemoglobin 16.8 g/dL (12.9-16.9); Immature Granulocytes % 0.3 % (0-4); Lymphocytes # 1.6 K/mcL (0.6-4.6); Lymphocytes % 23.1 %; Mean Corpuscular HGB Conc 31.1 g/dL (31.6-35.5); Mean Corpuscular Hemoglobin 24.9 pg (28.0-33.3); Mean Corpuscular Volume 80.3 fL (83.0-100.0); Mean Platelet Volume 10.5 fL (9.4-12.4); Monocytes % 14.9 %; Neutrophils # 3.9 K/mcL (1.6-8.9); Platelet Count 285 K/mcL (140-400); Red Blood Count 6.74 M/mcL (4.19-5.50); Red Cell Distribution Width 20.9 % (11.5-14.5); Segmented Neutrophils % 57.1 %
[2017-12-18 17:19] LABS: INR 1.5; Prothrombin Time 17.4 Seconds (9.4-12.1)
[2017-12-18 17:20] LABS: RBC,Peritoneal Fluid 0.005 M/mcL
[2017-12-18 17:45] LABS: Appearance of Peritoneal Fl CLOUDY (Clear)
--- NOTE | 2017-12-18 17:54 | Emergency Department Note ---
Disposition Clinical Impression: Ascites Qualifiers: Ascites type: other type Qualified Code(s): R18.8 - Other ascites Disposition: Admitted As Inpatient Condition: Undetermined General Adult HPI - General Chief complaint: ED Shortness of Breath/Dyspnea Stated complaint: Abdominal Fluid Time Seen by Provider: 12/18/17 14:46 Source: patient Limitations: physical limitation Nursing Notes Reviewed: Yes Vital Signs Reviewed: Yes - History of Present Illness HPI Narrative: This is a 67-year-old male with a history of increasing abdominal girth. Symptoms started approximately 2 weeks ago. He actually went for an outpatient CAT scan and it showed large amount of ascites. He has no history of cirrhosis and does not have a history of ascites. No fever or chills. He is not peritoneal on arrival. He has no sick or ill contacts. No recent abdominal trauma. General: No acute distress HEENT: Pupils equal and reactive to light, extraoccular muscle movement is normal, TMS are clear bilaterally. Heart: RRR, No murmor rub or gallop Lungs: lungs clear, no wheezing, rales or ronchi. ABD: Distended, fluid with Extremities: No cyanosis, clubbing or edema Neuro: CN 2-12 in tact, no focal deficit. strength 5/5. Medical decision making There is a patient with massive ascites. They will undergo paracentesis via interventional radiology today. Laboratory analyses are stable. The patient be admitted to the medicine service with new onset of cirrhosis as well as massive ascites following paracentesis. Pain Scale: 0 - Related Data Home Medications Medication Instructions Recorded Confirmed Aspirin [Lo-Dose Aspirin EC] 81 mg PO DAILY 12/03/15 12/18/17 Carvedilol 18.625 mg PO BID 12/03/15 12/18/17 Furosemide [Lasix] 40 mg PO DAILY 12/03/15 12/18/17 Atorvastatin Calcium [Lipitor] 80 mg PO HS 12/18/17 12/18/17 Cyanocobalamin (B-12) [Vitamin B12] 1,000 mcg PO DAILY 12/18/17 12/18/17 Gabapentin [Neurontin] 300 mg PO TID 12/18/17 12/18/17 [place]-3/Dha/Epa/Fish Oil [Fish Oil 1 cap PO DAILY 12/18/17 12/18/17 1,000 mg Softgel] Spironolactone [Aldactone] 100 mg PO DAILY 12/18/17 12/18/17 Previous Rx's Medication Instructions Recorded Albuterol Sulfate [Albuterol 2 puff IH Q4HR PRN #1 hfa.aer.ad 11/25/17 Inhaler] Allergies Allergy/AdvReac Type Severity Reaction Status Date / Time No Known Allergies Allergy Verified 07/15/17 14:11 All systems ED: reviewed and negative except as stated. Past Medical History - Past Medical History Medical history: Reports: arthritis, atrial fibrillation, cardiomyopathy, CHF, COPD, coronary artery disease, diabetes, GERD, hyperlipidemia, hypertension, migraine, myocardial infarction Surgical history: Reports: angioplasty/stent, coronary bypass (CABG), pacemaker/ AICD Psychiatric history: Reports: depression - Social History Smoking Status: Former smoker Smokeless Tobacco Status: No Alcohol use: Reports: none, rarely Drug use: Reports: none Physical Exam - General Limitations: physical limitation General appearance: alert, obese Course Vital Signs Temperature 98 F 12/18/17 14:26 Pulse Rate 86 12/18/17 14:26 Respiratory Rate 20 12/18/17 14:26 Blood Pressure 113/76 12/18/17 14:26 O2 Sat by Pulse Oximetry 96 12/18/17 14:26 Temperature 98.5 F 12/18/17 17:11 Pulse Rate 81 12/18/17 17:11 Respiratory Rate 22 12/18/17 17:11 Blood Pressure 121/83 12/18/17 17:11 O2 Sat by Pulse Oximetry 97 12/18/17 17:11 Oxygen Delivery Oxygen Delivery Nasal Cannula Medical Decision Making - Lab Data Result diagrams: 12/18/17 16:47 12/18/17 15:25 Lab Results 12/18/17 12/18/17 12/18/17 Range/Units 15:16 15:25 15:25 Sodium 137 (136-145) mEq/L Potassium 3.9 (3.5-5.1) mEq/L Chloride 101 (98-107) mEq/L Carbon Dioxide 31 H (23-29) mEq/L BUN 21 (8-23) mg/dL Creatinine 1.03 (0.70-1.30) mg/dL Est GFR ( Amer) > 60 (> 60) Est GFR (Non-Af Amer) > 60 (> 60) BUN/Creatinine Ratio 20 (6-26) Glucose 115 H (70-105) mg/dL Calculated Osmolality 288 (280-300) Calcium 9.1 (8.6-10.3) mg/dL Total Bilirubin 2.3 H (0.3-1.0) mg/dL AST 31 (13-39) Units/L ALT 13 (7-52) Units/L Alkaline Phosphatase 150 H (34-104) Units/L Serum Total Protein 6.4 (6.4-8.9) g/dL Albumin 3.4 L (3.5-5.7) g/dL Globulin 3.0 (2.4-3.5) g/dL Albumin/Globulin Ratio 1.1 (1.1-2.2) Peritoneal Appearance CLOUDY (Clear) Peritoneal Volume 62.0 mL Peritoneal RBC 0.005 H (0.000 - 0.002) M/mcL Periton Tot Nuc Cells 165 (0-300) TNC/mcL Specimen Rejected Clotted
[2017-12-18] MEDS ORDERED: Naloxone 0.4 MG/ML INJ IVP PRN (18:17)
--- NOTE | 2017-12-18 18:38 | Internal Med History&Physical ---
Date of Encounter: 12/18/17 Time of Encounter: 18:37 Internal Medicine - H&P: HPI Chief complaint: Abdominal distension Admitted From: Emergency Dept Plans for Post Hospital Care: Home History of present illness: Mr. Velásquez is a 67 year old male with history of significant cardiomyopathy, coronary artery disease, who presents to the emergency room with complaints of worsening abdominal distention. Patient reports a 2-3 month history of progressively worsening abdominal distention and leg swelling, associated with shortness of breath and exertional dyspnea. He denies chest pain, abdominal pain, palpitations. No fever, chills. No vomiting or diarrhea. No previous history of similar symptoms. No known liver disease, no history of HIV or viral hepatitis, denies alcohol and IV drug abuse. He was seen by Cardiology as outpatient, got CT abdomen showing ascites, and referred to GI today, who sent him to ER for paracentesis. He underwent paracentesis by interventional radiology today, reports significant improvement in shortness of breath. Past Med Surg Social Fam HX - Past Medical History Source: patient, old records reviewed Medical history: atrial fibrillation, cardiomyopathy, CHF, coronary artery disease, diabetes, GERD, hyperlipidemia, hypertension, myocardial infarction Additional medical history: neuropathy Psychiatric history: depression - Past Surgical History Surgical History: angioplasty/stent, coronary bypass (CABG), pacemaker/AICD Additional surgical history: CARDIAC STENTS X 3 (2000), CABG w/ 4 bypasses (2006 ), demand pacemaker 09/2014 - Social History Smoking Status: Former smoker Smokeless Tobacco Status: No Alcohol use: none, rarely Drug use: none Occupational status: disabled Current living situation: Home, With Family Activity Level: Independent ambulation Recent Out of Country Travel Within the Last 8 Weeks: No Exposure or Possible Exposure to Illness During Travel: No - Family History Father History Unknown: Yes Living Status: Hx Family Cardiac Disorders: Yes (Cardiomyopathy) Internal Medicine - H&P: Meds Aspirin [Lo-Dose Aspirin EC] 81 mg PO DAILY 12/03/15 [History] Carvedilol 18.75 mg PO BID 12/03/15 [History] Furosemide [Lasix] 40 mg PO DAILY 12/03/15 [History] Albuterol Sulfate [Albuterol Inhaler] 2 puff IH Q4HR PRN #1 hfa.aer.ad 11/25/17 [Rx] Atorvastatin Calcium [Lipitor] 80 mg PO HS 12/18/17 [History] Cyanocobalamin (B-12) [Vitamin B12] 1,000 mcg PO DAILY 12/18/17 [History] Gabapentin [Neurontin] 300 mg PO TID 12/18/17 [History] [place]-3/Dha/Epa/Fish Oil [Fish Oil 1,000 mg Softgel] 1 cap PO DAILY 12/18/17 [ History] Spironolactone [Aldactone] 100 mg PO DAILY 12/18/17 [History] 3 Allergy/AdvReac Type Severity Reaction Status Date / Time No Known Allergies Allergy Verified 07/15/17 14:11 All Systems PM: A 10-system review of systems was performed and is negative for pertinent findings except as documented above in the HPI. - Constitutional Constitutional: no chills, no fever(s), no night sweats - EENT Eyes: no change in vision, no discharge, no pain, no photophobia Ears: no ear discharge, no ear pain, no tinnitus Nose, mouth and throat: no dysphagia, no nasal discharge, no neck pain, no sore throat - Cardiovascular Cardiovascular ROS IM: dyspnea, dyspnea on exertion, edema, no chest pain, no diaphoresis, no lightheadedness, no palpitations, no syncope - Respiratory Respiratory: no cough, no dyspnea, no wheezing, no excessive phlegm production - Gastrointestinal Gastrointestinal: as per HPI, bloating, no hematemesis, no hematochezia, no loose stools - Musculoskeletal Musculoskeletal ROS IM: no numbness, no tingling - Integumentary Integumentary IM: no rash, no unusual bruising - Neurological Neurological ROS: no confusion, no convulsions, no focal weakness, no numbness, no tingling, no tremor(s) - Hematologic/Lymphatic Hematologic/Lymphatic: no easy bruising - Constitutional Vitals: Temp Pulse Resp BP Pulse Ox 98.5 F 81 22 121/83 97 12/18/17 17:11 12/18/17 17:11 12/18/17 17:11 12/18/17 17:11 12/18/17 17:11 General appearance: Present: A&O X 3, morbidly obese, answers questions appropriately Exam: . - Respiratory Respiratory exam: Present: CTAB, rales (faint inspiratory crackles at left base) . Absent: accessory muscle use, rhonchi, wheezes - Cardiovascular Cardiovascular exam: Present: RRR, +S1, +S2. Absent: diastolic murmur, gallop, rubs, systolic murmur - GI/Abdominal GI/Abdominal exam: Present: normal bowel sounds, soft (obese), no peritoneal signs. Absent: distended, tenderness - Extremities Exam Extremities exam: Present: full ROM, pedal edema (1+ B/L pedal edema), warm, radial pulses palpable and symmetrical. Absent: calf tenderness, cyanotic - Neurological Exam Neurological exam: Present: CN II-XII intact, oriented X3, no focal deficits. Absent: pronater drift, facial droop, speech deficit - Skin Skin exam: Present: dry, intact Internal Med - H&P Results - Labs CBC & Chem 7: 12/18/17 16:47 12/18/17 15:25 Labs: Short CBC 12/18/17 Range/Units 16:47 WBC 6.8 (4.3-11.1) K/mcL Hgb 16.8 (12.9-16.9) g/dL Hct 54.1 H (37.5-50.1) % Plt Count 285 (140-400) K/mcL Neutrophils # 3.9 (1.6-8.9) K/mcL - Assessment and plan (1) Ascites Current Visit: Yes Status: Acute Assessment and plan: New onset ascites. 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 CT abdomen/pelvis shows possible cirrhosis and moderate ascites. Status post paracentesis with reportedly 5 L fluid removal today. Continue diuretics and supportive care. Monitor renal function closely. GI consulted; patient was sent to the ER by GI OFFICE MACHINE SERVICER APPRENTICE when he saw her in the clinic today; Qualifiers: Ascites type: other type Qualified Code(s): R18.8 - Other ascites (2) Chronic congestive heart failure Current Visit: Yes Status: Chronic Assessment and plan: Echo from June 2017 showed significantly reduced EF 15-20%, indeterminate diastolic function, no LV thrombus. Continue diuretics, beta vonnie, fluid restriction. Qualifiers: Heart failure type: combined systolic and diastolic Qualified Code(s): I50.42 - Chronic combined systolic (congestive) and diastolic (congestive) heart failure (3) Coronary artery disease Current Visit: Yes Status: Chronic Assessment and plan: Status post PCI and CABG. Continue aspirin, statin, beta vonnie. Qualifiers: Coronary Disease-Associated Artery/Lesion type: bypass graft [place] vs. transplanted heart: [place] heart Associated angina: without angina Qualified Code(s): I25.810 - Atherosclerosis of coronary artery bypass graft(s) without angina pectoris (4) Diabetes mellitus Current Visit: Yes Status: Chronic Assessment and plan: Blood sugars well controlled. Continue Accu-Chek blood glucose monitoring with sliding scale insulin as needed. Diabetic diet as tolerated. Qualifiers: Diabetes mellitus type: type 2 Diabetes mellitus generation engineering technologist insulin use: without generation engineering technologist use Diabetes mellitus complication status: with circulatory complication Diabetes mellitus complication detail: with other circulatory complications Qualified Code(s): E11.59 - Type 2 diabetes mellitus with other circulatory complications (5) Essential hypertension Current Visit: Yes Status: Chronic (6) Afib Current Visit: Yes Status: Chronic Assessment and plan: Currently rate controlled. Continue beta vonnie. Patient is supposed to be on anticoagulation with Eliquis per previous medical records, apparently he recently stopped taking it as he thought Eliquis was causing his abdominal distention and ascites. Will resume at this time. Qualifiers: Atrial fibrillation type: paroxysmal Qualified Code(s): I48.0 - Paroxysmal atrial fibrillation - Time Spent With Patient Total time spent is greater than 50% in coordination of care (as documented) at patient's floor/unit and/or counseling patient:
[2017-12-18 19:09] LABS: Amylase,Peritoneal Fluid 20 Units/L (No Ref Range); Glucose,Peritoneal Fluid 173 mg/dL (No Ref Range); LDH,Peritoneal Fluid 68 Units/L (No Ref Range); Total Protein,Peritoneal Fluid < 3.0 g/dL (No Ref Range)
[2017-12-18] MEDS: Gabapentin 300 MG CAPSULE PO SCH (21:33)
[2017-12-19 05:15] LABS: Basophils # 0.1 K/mcL (0.0-0.2); Basophils % 1.1 %; Eosinophils # 0.3 K/mcL (0.0-0.6); Eosinophils % 4.1 %; Hematocrit 54.3 % (37.5-50.1); Hemoglobin 16.8 g/dL (12.9-16.9); Immature Granulocytes % 0.3 % (0-4); Lymphocytes # 1.5 K/mcL (0.6-4.6); Lymphocytes % 23.8 %; Mean Corpuscular HGB Conc 30.9 g/dL (31.6-35.5); Mean Corpuscular Hemoglobin 24.9 pg (28.0-33.3); Mean Corpuscular Volume 80.4 fL (83.0-100.0); Mean Platelet Volume 10.5 fL (9.4-12.4); Monocytes # 0.9 K/mcL (0.0-1.3); Monocytes % 14.1 %; Neutrophils # 3.4 K/mcL (1.6-8.9); Platelet Count 281 K/mcL (140-400); Red Blood Count 6.75 M/mcL (4.19-5.50); Segmented Neutrophils % 56.6 %
[2017-12-19 05:35] LABS: Alanine Aminotransferase 13 Units/L (7-52); Albumin 3.2 g/dL (3.5-5.7); Albumin/Globulin Ratio 1.1 (1.1-2.2); Alkaline Phosphatase 145 Units/L (34-104); Aspartate Amino Transferase 29 Units/L (13-39); BUN/Creatinine Ratio 19 (6-26); Bilirubin,Total 2.2 mg/dL (0.3-1.0); Blood Urea Nitrogen 20 mg/dL (8-23); Calcium 8.9 mg/dL (8.6-10.3); Carbon Dioxide 32 mEq/L (23-29); Chloride 100 mEq/L (98-107); Chol/HDL Ratio 5.2 (0-4.9); Cholesterol 73 mg/dL (< 200); Globulin 2.9 g/dL (2.4-3.5); Glucose 104 mg/dL (70-105); HDL Cholesterol 14 mg/dL (40-59); LDL Cholesterol,Calculated 43 mg/dL (0-99); Osmolality,Calculated 289 (280-300); Potassium 3.7 mEq/L (3.5-5.1); Sodium 138 mEq/L (136-145); Total Protein 6.1 g/dL (6.4-8.9); Triglycerides 78 mg/dL (< 150); eGFR For Non-African Americans > 60 (> 60)
[2017-12-19] MEDS ORDERED: Furosemide 40 MG TABLET PO SCH (09:00)
[2017-12-19] MEDS ORDERED: Aspirin Enteric Coated 81 MG Tablet PO SCH (09:00)
[2017-12-19] MEDS: Gabapentin 300 MG CAPSULE PO SCH (09:22)
--- NOTE | 2017-12-19 10:23 | Discharge Summary ---
- NOTES TO OUTPATIENT PROVIDER Notes to Outpatient Provider: Patient was admitted for ascites likely due to cardiac cirrhosis. Underwent paracentesis by interventional radiology and drained 5 L of fluid. No evidence of SBP, and was deemed transudative. He was evaluated by gastroenterology for follow-up paracentesis before discharged. Patient was given the prescription for Eliquis again, which he had stopped taking due to the concern that it may be causing his abdomen to be distended. Orders not resulted at time of discharge: Pending orders 12/18/17 16:04 Cytology [PTH] Urgent Date of Encounter: 12/19/17 Time of Encounter: 08:20 - Discharge Diagnosis (1) Coronary artery disease Priority: Secondary Status: Chronic Qualifiers: Coronary Disease-Associated Artery/Lesion type: bypass graft [place] vs. transplanted heart: [place] heart Associated angina: without angina Qualified Code(s): I25.810 - Atherosclerosis of coronary artery bypass graft(s) without angina pectoris (2) Diabetes mellitus Priority: Secondary Status: Chronic Qualifiers: Diabetes mellitus type: type 2 Diabetes mellitus senior care insulin use: without senior care use Diabetes mellitus complication status: with circulatory complication Diabetes mellitus complication detail: with other circulatory complications Qualified Code(s): E11.59 - Type 2 diabetes mellitus with other circulatory complications (3) Essential hypertension Priority: Secondary Status: Chronic (4) Chronic congestive heart failure Priority: Secondary Status: Chronic Qualifiers: Heart failure type: combined systolic and diastolic Qualified Code(s): I50.42 - Chronic combined systolic (congestive) and diastolic (congestive) heart failure (5) Afib Priority: Secondary Status: Chronic Qualifiers: Atrial fibrillation type: paroxysmal Qualified Code(s): I48.0 - Paroxysmal atrial fibrillation (6) Ascites Priority: Primary Status: Acute Qualifiers: Ascites type: other type Qualified Code(s): R18.8 - Other ascites Hospital course: Mr. Velásquez is a 67 year old male Discharge discussed with: patient - Time Spent with Patient Total time spent providing and/or coordinating discharge services: Greater than 30 minutes - Discharge Medications Prescriptions: Apixaban [Eliquis] 5 mg PO BID #60 tablet Home Medications: Aspirin [Lo-Dose Aspirin EC] 81 mg PO DAILY 12/03/15 [History] Carvedilol 18.75 mg PO BID 12/03/15 [History] Furosemide [Lasix] 40 mg PO DAILY 12/03/15 [History] Albuterol Sulfate [Albuterol Inhaler] 2 puff IH Q4HR PRN #1 hfa.aer.ad 11/25/17 [Rx] Atorvastatin Calcium [Lipitor] 80 mg PO HS 12/18/17 [History] Cyanocobalamin (B-12) [Vitamin B12] 1,000 mcg PO DAILY 12/18/17 [History] Gabapentin [Neurontin] 300 mg PO TID 12/18/17 [History] [place]-3/Dha/Epa/Fish Oil [Fish Oil 1,000 mg Softgel] 1 cap PO DAILY 12/18/17 [ History] Spironolactone [Aldactone] 100 mg PO DAILY 12/18/17 [History] Apixaban [Eliquis] 5 mg PO BID #60 tablet 12/19/17 [Rx] Allergies/Adverse Reactions: 3 Allergy/AdvReac Type Severity Reaction Status Date / Time No Known Allergies Allergy Verified 07/15/17 14:11 Date of admission: 12/18/17 15:29 Primary care physician: Esther Lamar CNP Consults: 12/18/17 18:18 Consult to Gastroenterology [CONS] Routine Consulting Provider: Gastroenterology Maggi Reason for Consult: New onset ascites s/p paracentesis Call Completed: No - Constitutional Vitals: Temp Pulse Resp BP Pulse Ox 98.7 F 88 16 116/80 96 12/19/17 07:17 12/19/17 07:17 12/19/17 09:52 12/19/17 07:17 12/19/17 09:52 General appearance: Present: A&O X 3, morbidly obese, answers questions appropriately Exam: General: Alert and oriented, not in acute distress. Cardiovascular:Normal S1 & S2, No JVD. Pulse regular. Lungs: clear to auscultation, no wheezes/rales Abdomen:Soft, distended with everted umbilicus, mild pitting Extremities:No deformity Neurological:Normal cognition and motor skills. Non-focal - Patient Status Disposition: Home, Self-Care Condition: Undetermined Overall status at discharge: patient is progressing back to baseline - Discharge Instructions Instructions: Atrial Fibrillation (DC), Heart Failure (DC), Diabetes Mellitus Type 2 in Adults (DC) Follow Up With: [place],Esther W, BICYCLE REPAIRER [Primary Care Provider] - Forms: ED Satisfaction Letter - Diet and Activity Activity: resume usual activities as tolerated Diet: low salt diet
[2017-12-19 11:00] VITALS: BP 117/78
[2017-12-19 12:42] LABS: INR 1.8; Prothrombin Time 20.5 Seconds (9.4-12.1)
--- NOTE | 2017-12-19 13:04 | Gastroenterology Consult Note ---
<Geovanny Marie - Last Filed: 12/19/17 13:00> Date of Encounter: 12/19/17 Time of Encounter: 10:30 - Assessment and plan (1) Cirrhosis Status: Acute Assessment and plan: MELD-Na 16, Child-Charles class B. Recommend 2-4 BMs per day, use Lactulose if needed. Recommend EGD for variceal surveillance. Patient states he would prefer to do this as an outpatient. Complete liver workup. Continue Lasix and Aldactone. Lifestyle Changes: 1. Total abstinence from alcohol including social drinking. 2. No smoking. 3. Gradual loss of weight. 4. Drink at least 3 cups of coffee due to its antioxidant effects in the liver, it reduces risk of HCC and advance fibrosis. 5. If needed, use less than 2 g/day of Tylenol (in divided doses). 6. Vaccination for Hep A, B, Pneumococcus if not already received and yearly influenza vaccination by PCP. 7. Avoid NSAIDS as can cause kidney damage. 8. Avoid benzodiazepines and other sedatives such as anti-histamines, narcotics etc. as can cause encephalopathy or confusion. 9. Take a late carbohydrate meal supplement as it reduces glucose production from protein breakdown and thus improves nutrition. 10. In cirrhosis, statins are safe to use and also improve portal hypertension and decrease risk of HCC. 11. Screening: o Hepatocellular cancer screening: [place] of liver and AFP every 6 months Qualifiers: Hepatic cirrhosis type: unspecified hepatic cirrhosis Ascites presence: with ascites Qualified Code(s): K74.60 - Unspecified cirrhosis of liver; R18.8 - Other ascites (2) Ascites Status: Acute Assessment and plan: Paracentesis completed with 5L removed. Continue Lasix and Aldactone. Qualifiers: Ascites type: other type Qualified Code(s): R18.8 - Other ascites - Time Spent With Patient Total time spent is greater than 50% in coordination of care (as documented) at patient's floor/unit and/or counseling patient: GI History of Present Illness - Data of Consult Patient: known to practice within the last 3 years Consult date: 12/19/17 Requesting Physician: Shelly Asif MD - Consult Narrative Reason for consult: Ascites History of present illness: Mr. Velásquez is a 67 year old male with PMHx of Afib, cardiomyopathy, CHF, CAD, DM , GERD, HLD, HTN, MT who presented to the ED with complaints of worsening abdominal distention over the past 2-3 months, with associated shortness of breath. He denies fever, chills, chest pain, abdominal pain, vomiting, diarrhea , constipation, melena, or hematochezia. CT A/P 12/11/2017 showed lobulated contours of the liver with moderate volume of ascites suspicious for cirrhosis, small to moderate volume of ascites, and right sided pleural effusion. Paracentesis completed yesterday with 5L removed. Procedures: None NSAIDs: ASA Anticoagulation: None Past Med Surg Social Fam HX - Past Medical History Medical history: atrial fibrillation, cardiomyopathy, CHF, coronary artery disease, diabetes, GERD, hyperlipidemia, hypertension, myocardial infarction Additional medical history: neuropathy Psychiatric history: depression - Past Surgical History Surgical History: angioplasty/stent, coronary bypass (CABG), pacemaker/AICD Additional surgical history: CARDIAC STENTS X 3 (2000), CABG w/ 4 bypasses (2006 ), demand pacemaker 09/2014 - Social History Smoking Status: Former smoker Smokeless Tobacco Status: No Alcohol use: none, rarely Drug use: none - Family History Father History Unknown: Yes Living Status: Hx Family Cardiac Disorders: Yes (Cardiomyopathy) - Gastrointestinal Gastrointestinal: Present: as per HPI - Constitutional Constitutional: as per HPI - EENT Eyes: as per HPI Ears: Present: as per HPI Nose, mouth and throat: Present: as per HPI - Cardiovascular Cardiovascular ROS: Present: as per HPI - Respiratory Respiratory IM: Present: as per HPI - Genitourinary Genitourinary: Absent: change in color, Urinary frequency - Neurological ROS Neurological GI: Present: as per HPI - Hematologic/Lymphatic Hematologic/Lymphatic pediatric: Present: as per HPI - Musculoskeletal Musculoskeletal ROS GI: Present: as per HPI - Integumentary Integumentary GI: Present: as per HPI - Psychiatric ROS Psychiatric GI: Present: as per HPI - Endocrine Endocrine IM: Present: as per HPI - Constitutional Vitals: Temp Pulse Resp BP Pulse Ox 98.8 F 114 92 117/78 96 12/19/17 10:59 12/19/17 10:59 12/19/17 10:59 12/19/17 10:59 12/19/17 09:52 General appearance: Present: cooperative, A&O X 3, no acute distress, obese, answers questions appropriately - Head Head exam: Present: atraumatic, normocephalic - Eye Eye exam: Present: normal appearance, sclera anicteric - ENT ENT exam: Present: mucous membranes moist - Neck Neck exam general surgery: Present: normal inspection, trachea midline - Respiratory Respiratory exam: Present: decreased breath sounds, CTAB Additional comments: Short of breath - Cardiovascular Cardiovascular exam: Present: RRR, +S1, +S2 - GI/Abdominal GI/Abdominal exam: Present: distended, firm, no peritoneal signs. Absent: guarding, tenderness - Expanded GI/Abdominal Exam GI/Abdominal exam expanded: Present: ascites - Rectal Rectal exam: Present: deferred - Extremities Exam Extremities exam: Present: warm - Neurological Exam Neurological exam: Present: no focal deficits - Psychiatric Psychiatric exam: Present: normal affect, normal mood - Skin Skin exam: Present: dry, intact, normal color, warm Results - Labs CBC & Chem 7: 12/19/17 04:32 12/19/17 04:32 Labs: Last Result Calcium 8.9 mg/dL (8.6-10.3) 12/19/17 04:32 Triglycerides 78 mg/dL (< 150) 12/19/17 04:32 Peritoneal Appearance CLOUDY (Clear) 12/18/17 15:16 Peritoneal Volume 62.0 mL 12/18/17 15:16 Peritoneal RBC 0.005 M/mcL (0.000-0.002) H 12/18/17 15:16 Periton Tot Nuc Cells 165 TNC/mcL (0-300) 12/18/17 15:16 Periton Band Neuts Test Not Performed 12/18/17 15:16 Periton Lymphocytes % 64.0 % 12/18/17 15:16 Periton Monocytes % 10.0 % 12/18/17 15:16 Periton Other Cells % 20.0 % 12/18/17 15:16 Peritoneal Tot Protein < 3.0 g/dL (No Ref Range) 12/18/17 15:16 Peritoneal LDH 68 Units/L (No Ref Range) 12/18/17 15:16 Peritoneal Glucose 173 mg/dL (No Ref Range) 12/18/17 15:16 Peritoneal Amylase 20 Units/L (No Ref Range) 12/18/17 15:16 Entire Visit Hgb 16.8 g/dL (12.9-16.9) 12/19/17 04:32 Hct 54.3 % (37.5-50.1) H 12/19/17 04:32 PT 20.5 Seconds (9.4-12.1) H 12/19/17 12:25 Total Bilirubin 2.2 mg/dL (0.3-1.0) H 12/19/17 04:32 AST 29 Units/L (13-39) 12/19/17 04:32 ALT 13 Units/L (7-52) 12/19/17 04:32 - ABG ABG results: PT/INR, D-dimer PT 20.5 Seconds (9.4-12.1) H 12/19/17 12:25 Consult Discharge Plan - Plan Instructions: Heart Failure (DC), Atrial Flutter (DC), Atrial Fibrillation (DC) , Thoracentesis (DC), Acute Kidney Injury (DC), Diabetes Mellitus Type 2 in Adults (DC) Referrals: Esther Lamar CNP [Primary Care Provider] - 12/26/17 3:00 pm (Please follow up as schedule...) Kristie Mahoney MD [Partnered Physician] - 01/06/18 3:40 pm (Please follow up as schedule...) Prescriptions: Apixaban [Eliquis] 5 mg PO BID #60 tablet <Kristie Mahoney - Last Filed: 12/22/17 14:38> Date of Encounter: 12/19/17 Time of Encounter: 15:00 - Time Spent With Patient Total time spent is greater than 50% in coordination of care (as documented) at patient's floor/unit and/or counseling patient: GI History of Present Illness - Data of Consult Requesting Physician: Shelly Asif MD - Consult Narrative History of present illness: Mr. Velásquez is a 67 year old male - Constitutional Vitals: Temp Pulse Resp BP Pulse Ox 98.8 F 114 92 117/78 96 12/19/17 10:59 12/19/17 10:59 12/19/17 10:59 12/19/17 10:59 12/19/17 09:52 Results - Labs CBC & Chem 7: 12/19/17 04:32 12/19/17 04:32 Labs: Last Result Calcium 8.9 mg/dL (8.6-10.3) 12/19/17 04:32 Ferritin 24 ng/mL (20-250) 12/19/17 12:25 Triglycerides 78 mg/dL (< 150) 12/19/17 04:32 Peritoneal Appearance CLOUDY (Clear) 12/18/17 15:16 Peritoneal Volume 62.0 mL 12/18/17 15:16 Peritoneal RBC 0.005 M/mcL (0.000-0.002) H 12/18/17 15:16 Periton Tot Nuc Cells 165 TNC/mcL (0-300) 12/18/17 15:16 Periton Band Neuts Test Not Performed 12/18/17 15:16 Periton Lymphocytes % 64.0 % 12/18/17 15:16 Periton Monocytes % 10.0 % 12/18/17 15:16 Periton Other Cells % 20.0 % 12/18/17 15:16 Peritoneal Tot Protein < 3.0 g/dL (No Ref Range) 12/18/17 15:16 Peritoneal LDH 68 Units/L (No Ref Range) 12/18/17 15:16 Peritoneal Glucose 173 mg/dL (No Ref Range) 12/18/17 15:16 Peritoneal Amylase 20 Units/L (No Ref Range) 12/18/17 15:16 Entire Visit Hgb 16.8 g/dL (12.9-16.9) 12/19/17 04:32 Hct 54.3 % (37.5-50.1) H 12/19/17 04:32 PT 20.5 Seconds (9.4-12.1) H 12/19/17 12:25 Ferritin 24 ng/mL (20-250) 12/19/17 12:25 Total Bilirubin 2.2 mg/dL (0.3-1.0) H 12/19/17 04:32 AST 29 Units/L (13-39) 12/19/17 04:32 ALT 13 Units/L (7-52) 12/19/17 04:32 Ceruloplasmin 38 mg/dL (17-54) 12/19/17 12:25 - ABG ABG results: PT/INR, D-dimer PT 20.5 Seconds (9.4-12.1) H 12/19/17 12:25
[2017-12-19 16:56] LABS: Hepatitis B Surface Antigen Nonreactive (Nonreactive)
[2017-12-20 03:21] LABS: Hepatitis A Antibody IgM Nonreactive (Nonreactive); Hepatitis B Core IgM Nonreactive (Nonreactive); Hepatitis C Virus Antibody Nonreactive (Nonreactive)
[2017-12-20 15:39] LABS: AFP Tumor Marker Non-Pregnant 2 ng/mL (0-9)
[2017-12-24 11:33] LABS: ANA IgG by ELISA NONE DETECTED (None Detected); F-Actin (sm muscle) Ab IgG 13 Units (0-19)
[2017-12-24 14:12] LABS: Myeloperoxidase Ab 0 AU/mL (0-19); Serine Protease-3 Antibody 0 AU/mL (0-19)
== END 2017-12-19 14:31 | disposition home or self-care (01) ==
LOC: 2ANU 14:25 → EMEROOARM 14:25 → 2ANU 16:54
PROVIDERS: ADMIT Student in an Organized Health Care Education/Training Program; ATTEND Student in an Organized Health Care Education/Training Program

== ENCOUNTER 2018-01-17 12:30 | Inpatient (IN) ==
[2018-01-17] MEDS ORDERED: *HR* Metoprolol 5 MG/5 ML VIAL IVP ONE (15:41)
--- NOTE | 2018-01-17 16:42 | Internal Med History&Physical ---
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 fib with RVR, acute on chronic systolic heart failure and recurrent ascites. Patient reports that for the last 2 weeks he noticed bilateral lower extremity edema with seeping from bilateral legs as well. Patient also noticed increased shortness of breath. Patient finally decided to go into the ER where he was evaluated and admitted at [facility] and was subsequently transferred to [facility] for further management. Patient was just recently discharged from [facility] on 12/19/17 and was evaluated by GI with recommendations for paracentesis on 12/18/17 in which 5 L of fluid was removed. GI recommendations at that time was to continue Lasix and Aldactone in addition to lactulose as needed. Further recommendations for EGD for variceal surveillance. Patients cirrhosis thought to be secondary to congestive heart failure and patient with an echocardiogram on 06/2017 which showed LVEF of 15-20%; patient with history of PCI and CABG. On examination once patient arrived as a direct admit in the progressive unit, patient was found to be in A. fib with RVR and with acute hypoxic respiratory failure. Patient also with bilateral lower extremity edema up to bilateral mid thighs. In addition patients abdomen also distended/tight. Past Med Surg Social Fam HX - Past Medical History Medical history: atrial fibrillation, cardiomyopathy, cirrhosis, CHF, coronary artery disease, diabetes, hyperlipidemia, hypertension, myocardial infarction Additional medical history: neuropathy Psychiatric history: depression - Past Surgical History Surgical History: angioplasty/stent, coronary bypass (CABG), pacemaker/AICD Additional surgical history: CARDIAC STENTS X 3 (2000), CABG w/ 4 bypasses (2006 ), demand pacemaker 09/2014 - Social History Smoking Status: Former smoker Smokeless Tobacco Status: No Alcohol use: rarely Drug use: none - Family History Father Living Status: Hx Family Cardiac Disorders: Yes (Cardiomyopathy) Hx Family Cancer: Yes (BOWEL CA) Mother Living Status: Hx Family Neurologic Disorders: Yes (CVA) Sister Hx Family Cardiac Disorders: Yes (CABG X 4) Internal Medicine - H&P: Meds Aspirin [Lo-Dose Aspirin EC] 81 mg PO DAILY 12/03/15 [History] Carvedilol 18.75 mg PO BID 12/03/15 [History] Furosemide [Lasix] 40 mg PO DAILY 12/03/15 [History] Albuterol Sulfate [Albuterol Inhaler] 2 puff IH Q4HR PRN #1 [email or web address] 11/25/17 [Rx] Atorvastatin Calcium [Lipitor] 80 mg PO HS 12/18/17 [History] Cyanocobalamin (B-12) [Vitamin B12] 1,000 mcg PO DAILY 12/18/17 [History] Gabapentin [Neurontin] 300 mg PO TID 12/18/17 [History] [place]-3/Dha/Epa/Fish Oil [Fish Oil 1,000 mg Softgel] 1 cap PO DAILY 12/18/17 [ History] 3 Allergy/AdvReac Type Severity Reaction Status Date / Time No Known Allergies Allergy Verified 07/15/17 14:11 All Systems PM: A 10-system review of systems was performed and is negative for pertinent findings except as documented above in the HPI. - Constitutional Vitals: Temp Pulse Resp BP Pulse Ox 98.7 F 100 22 125/90 94 01/17/18 14:49 01/17/18 14:49 01/17/18 14:49 01/17/18 14:49 01/17/18 14:49 General appearance: Present: A&O X 3, no acute distress Exam: As below - Respiratory Respiratory exam: Present: CTAB. Absent: accessory muscle use, rales, rhonchi, wheezes - Cardiovascular Cardiovascular exam: Present: +S1, +S2 (Irregular regular rhythm) - GI/Abdominal GI/Abdominal exam: Present: distended - Expanded GI/Abdominal Exam GI/Abdominal exam expanded: Present: ascites - Expanded Lower Extremities Exam Upper Leg exam: Present: swelling ( bilateral lower extremity edema up to mid thighs) - Neurological Exam Neurological exam: Present: oriented X3 - Psychiatric Psychiatric exam: Present: normal mood - Skin Skin exam: Present: erythema (Bilateral lower extremity erythema) - Assessment and plan (1) Non-alcoholic cirrhosis Current Visit: No Status: Acute Assessment and plan: Patient with past medical history significant for 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 Patient not a candidate for liver transplant. Abdominal ultrasound pending for evaluation of ascites Will continue IV Lasix in addition to IV albumin (2) Acute on chronic systolic (congestive) heart failure Current Visit: Yes Status: Acute Assessment and plan: Echocardiogram on 06/2017 which showed LVEF of 15-20%; patient with history of PCI and CABG. Will start IV diuresis with 40 mg of Lasix twice daily with fluid restriction and strict I's and Os Repeat echocardiogram pending Cardiology consult and appreciate recommendations (3) Atrial fibrillation with RVR Current Visit: Yes Status: Acute Assessment and plan: Patient with heart rate between 100- 130s at [facility] before transfer to [facility]. [facility], patient was placed on oral Cardizem and oral digoxin. Cardiology consulted with recommendations to discontinue oral Cardizem and digoxin and to place patient on oral beta vonnie (4) Coronary artery disease Current Visit: No Status: Chronic Assessment and plan: Patient with history of cardiac stents 3 (2000), CABG w/ 4 bypasses (2006), demand pacemaker 09/2014, Patient with an echocardiogram on 06/2017 which showed LVEF of 15-20%; patient with history of PCI and CABG. Continue statin, aspirin and beta vonnie started today Qualifiers: Coronary Disease-Associated Artery/Lesion type: bypass graft [place] vs. transplanted heart: [place] heart Associated angina: without angina Qualified Code(s): I25.810 - Atherosclerosis of coronary artery bypass graft(s) without angina pectoris (5) Bilateral lower leg cellulitis Current Visit: Yes Status: Acute Assessment and plan: Patient with bilateral lower extremity cellulitis suspect secondary to acute on chronic lower extremity edema. Infection seems less likely as patient afebrile and without leukocytosis therefore we will not restart IV antibiotics that was started at [facility]. (6) Hyponatremia Current Visit: No Status: Acute Assessment and plan: Sodium 129; will fluid restrict and continue to monitor (7) Diabetes mellitus Current Visit: No Status: Chronic Assessment and plan: A1c 8.7 on 11/18/17 Will incorporate sliding-scale insulin Qualifiers: Diabetes mellitus type: type 2 Diabetes mellitus [employer] insulin use: without longterm use Diabetes mellitus complication status: with circulatory complication Diabetes mellitus complication detail: with other circulatory complications Qualified Code(s): E11.59 - Type 2 diabetes mellitus with other circulatory complications (8) DVT prophylaxis Current Visit: No Status: Acute Assessment and plan: Heparin subcutaneous - Time Spent With Patient Total time spent is greater than 50% in coordination of care (as documented) at patient's floor/unit and/or counseling patient:
[2018-01-17] MEDS ORDERED: Naloxone 0.4 MG/ML INJ IVP PRN (17:09)
[2018-01-17] MEDS ORDERED: Perflutren Lipid Microsphere 1.3 ML in 0.9 % Sodium Chloride 8.7 ML IVP ONE (17:35)
[2018-01-17] MEDS: Albumin 25% 25gram/100mL 25 GM/100 ML IV.SOLN IVC SCH ×2 (18:33→20:11)
[2018-01-17] MEDS: Furosemide 40 MG/4 ML VIAL IVP SCH (20:11)
[2018-01-17] MEDS: *HR* Heparin 5,000 UNIT/ML VIAL SQ SCH (21:54)
[2018-01-18] MEDS: *HR* Heparin 5,000 UNIT/ML VIAL SQ SCH (05:57)
[2018-01-18] MEDS: Furosemide 40 MG/4 ML VIAL IVP SCH ×2 (07:24→16:53)
[2018-01-18 07:33] LABS: Basophils % 0.3 %; Eosinophils % 0.1 %; Hematocrit 51.7 % (37.5-50.1); Hemoglobin 16.3 g/dL (12.9-16.9); Immature Granulocytes % 0.5 % (0-4); Lymphocytes # 1.1 K/mcL (0.6-4.6); Lymphocytes % 9.5 %; Mean Corpuscular HGB Conc 31.5 g/dL (31.6-35.5); Mean Corpuscular Hemoglobin 24.8 pg (28.0-33.3); Mean Corpuscular Volume 78.6 fL (83.0-100.0); Mean Platelet Volume 10.6 fL (9.4-12.4); Monocytes % 9.2 %; Platelet Count 261 K/mcL (140-400); Red Blood Count 6.58 M/mcL (4.19-5.50); Red Cell Distribution Width 23.1 % (11.5-14.5); Segmented Neutrophils % 80.4 %
[2018-01-18 07:37] LABS: INR 2.2; Prothrombin Time 24.3 Seconds (9.4-12.1)
[2018-01-18 08:25] LABS: Neutrophils # 8.8 K/mcL (1.6-8.9)
--- NOTE | 2018-01-18 08:39 | Internal Med Progress Note ---
Hospitalist Progress Note - Encounter Date of Encounter: 01/18/18 Time of Encounter: 11:00 - Subjective Interval History: Patient with some improvements in shortness of breath after starting IV albumin and IV diuresis with Lasix Awaiting paracentesis by interventional radiology for recurrent ascites - Exam Vitals: Temp Pulse Resp BP Pulse Ox 97.3 F L 101 22 128/97 94 01/18/18 07:02 01/18/18 07:36 01/18/18 07:02 01/18/18 07:02 01/18/18 07:02 Exam: Gen.: Nonacute distress, alert and oriented 3 ENT: Mucosal membranes moist Respiratory: Lungs are clear to auscultation bilaterally without any wheezing rhonchi or rales Cardiovascular: Normal S1 and S2 regular rate rhythm no murmurs rubs or gallops Abdomen: Distended abdomen Extremities: Bilateral lower extremity edema up to mid thigh Skin: Normal color - Assessment and Plan (1) Non-alcoholic cirrhosis Current Visit: No Status: Acute Assessment and Plan: Patient with past medical history significant for 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 Patient not a candidate for liver transplant. Abdominal ultrasound showed moderate ascites in all 4 quadrants. IR consulted for paracentesis Will continue IV Lasix in addition to IV albumin (2) Acute on chronic systolic (congestive) heart failure Current Visit: Yes Status: Acute Assessment and Plan: Echocardiogram on 06/2017 which showed LVEF of 15-20%; patient with history of PCI and CABG. Repeat echocardiogram pending Will continue IV diuresis with 40 mg of Lasix twice daily with fluid restriction and strict I's and Os Cardiology consulted and appreciate recommendations (3) Atrial fibrillation with RVR Current Visit: Yes Status: Acute Assessment and Plan: Patient with heart rate between 100- 130s at [facility] before transfer to [facility]. During inpatient stay at [facility], patient was placed on oral Cardizem and oral digoxin. Cardiology consulted with recommendations to discontinue oral Cardizem and digoxin and to place patient on oral beta vonnie Heart rate controlled on low dose beta vonnie; continue current management Cardiology consulted and appreciate any additional recommendations (4) Coronary artery disease Current Visit: No Status: Chronic Assessment and Plan: Patient with history of cardiac stents 3 (2000), CABG w/ 4 bypasses (2006) and demand pacemaker 09/2014 Patient with an echocardiogram on 06/2017 which showed LVEF of 15-20%; patient with history of PCI and CABG. Continue statin, aspirin and beta vonnie (5) Bilateral lower leg cellulitis Current Visit: Yes Status: Acute Assessment and Plan: Patient with bilateral lower extremity cellulitis suspect secondary to acute on chronic lower extremity edema. Infection seems less likely as patient afebrile and without leukocytosis therefore we will not restart IV antibiotics that was started at [facility]. (6) Hyponatremia Current Visit: No Status: Acute Assessment and Plan: Sodium 129; will fluid restrict and continue to monitor (7) Diabetes mellitus Current Visit: No Status: Chronic Assessment and Plan: A1c 8.7 on 11/18/17 Continue sliding-scale insulin (8) DVT prophylaxis Current Visit: No Status: Acute Assessment and Plan: Heparin subcutaneous - Time Spent with Patient Total time spent is greater than 50% in coordination of care (as documented) at patient's floor/unit and/or counseling patient: Internal Medicine: Result - Labs CBC & Chem 7: 01/18/18 06:42 01/18/18 10:51 Labs: Short CBC 01/18/18 Range/Units 06:42 WBC 11.0 (4.3-11.1) K/mcL Hgb 16.3 (12.9-16.9) g/dL Hct 51.7 H (37.5-50.1) % Plt Count 261 (140-400) K/mcL - ABG Interpretation ABG results: PT/INR, D-dimer PT 24.3 Seconds (9.4-12.1) H 01/18/18 06:42 - Impressions Impressions Abdomen Ultrasound 01/17/18 15:49 IMPRESSION: Moderate ascites visualized in all 4 quadrants. D/ / Sridhar Parsons MD / Sridhar Parsons MD Interpreting Provider: Sridhar Parsons MD Consult Discharge Plan - Plan Referrals: Esther Lamar, [employer] [employer] [Primary Care Provider] - (4) Coronary artery disease Qualifiers: Coronary Disease-Associated Artery/Lesion type: bypass graft [place] vs. transplanted heart: [place] heart Associated angina: without angina Qualified Code(s): I25.810 - Atherosclerosis of coronary artery bypass graft(s) without angina pectoris (7) Diabetes mellitus Qualifiers: Diabetes mellitus type: type 2 Diabetes mellitus [facility] insulin use: without [facility] use Diabetes mellitus complication status: with circulatory complication Diabetes mellitus complication detail: with other circulatory complications Qualified Code(s): E11.59 - Type 2 diabetes mellitus with other circulatory complications
[2018-01-18 08:50] LABS: Anisocytosis 1+ (Not Present); Platelet Estimate Normal (Normal)
[2018-01-18 11:24] LABS: Alanine Aminotransferase 12 Units/L (7-52); Albumin 3.5 g/dL (3.5-5.7); Albumin/Globulin Ratio 1.3 (1.1-2.2); Alkaline Phosphatase 116 Units/L (34-104); Aspartate Amino Transferase 31 Units/L (13-39); BUN/Creatinine Ratio 25 (6-26); Bilirubin,Total 2.2 mg/dL (0.3-1.0); Blood Urea Nitrogen 27 mg/dL (8-23); Calcium 8.7 mg/dL (8.6-10.3); Carbon Dioxide 24 mEq/L (23-29); Chloride 100 mEq/L (98-107); Globulin 2.7 g/dL (2.4-3.5); Glucose 156 mg/dL (70-105); Osmolality,Calculated 280 (280-300); Potassium 4.4 mEq/L (3.5-5.1); Sodium 131 mEq/L (136-145); Total Protein 6.2 g/dL (6.4-8.9); eGFR For Non-African Americans > 60 (> 60)
--- NOTE | 2018-01-18 12:08 | Cardiology Consult Note ---
<Rickey Traore Pricilla - Last Filed: 01/18/18 12:05> Date of Encounter: 01/18/18 Time of Encounter: 12:05 Assessment and Plan (1) Acute on chronic systolic (congestive) heart failure Current Visit: Yes Status: Acute BNP 746. CXR no acute findings. Presents with worsening dyspnea, LE edema, abdominal distention and weight gain over the past 2 weeks. Known EF 20%--ICD in place. Hx of dietary indiscretion. Moderate acites on ABD US. Agree with IV Lasix--40mg IV BID. Add back Aldactone. Recommend strict I/Os, Na and fluid restriction, daily weights. Continue to follow. (2) Atrial flutter Current Visit: Yes Status: Chronic Known A-Flutter. Home meds included Coreg 18.75mg BID and was anticoagulated on Eliquis 5mg BID--not listed on home meds. 12 hr tele aVG HR 86, A-Flutter. Resume home BB for rate control and Eliquis for AC. Qualifiers: Atrial flutter type: unspecified Qualified Code(s): I48.92 - Unspecified atrial flutter (3) Ischemic cardiomyopathy Current Visit: Yes Status: Acute Known ICMP s/p ICD. EF 20%. Resume home Coreg and Aldactone. (4) Coronary artery disease Current Visit: No Status: Chronic Hx of CABG and PCI. Denies CP. Continue ASA, statin, BB. Qualifiers: Coronary Disease-Associated Artery/Lesion type: bypass graft [place] vs. transplanted heart: [place] heart Associated angina: without angina Qualified Code(s): I25.810 - Atherosclerosis of coronary artery bypass graft(s) without angina pectoris Discussion w patient/family: The assessment and plan as outlined above was discussed with the patient and/or family members who expressed understanding and agreement. All questions were answered. Thank you for involving us in the care of your patient. Please call with any questions. I will discuss all the above with Dr. Talamantes and make changes as necessary. History of Present Illness Consult date: 01/18/18 Consult reason: CHF, AF Chief complaint: dyspnea History of present illness: Mr. Velásquez is a 67 year old male with PMH of congestive hepatopathy with MELD-Na 16, Child-Charles class B, cardiac stents 3 (2000), CABG w/ 4 bypasses (2006), ICMP s/p ICD, atrial fibrillation and diabetes who presents from [facility] inpatient on 01/17/18 due to A. fib with RVR, acute on chronic systolic heart failure and recurrent ascites. Patient reports that for the last 2 weeks he noticed bilateral lower extremity edema with seeping from bilateral legs as well. Patient also noticed increased shortness of breath. Went to ED, admitted at [facility] and was subsequently transferred to [facility] for further management. Pt was d/c'd from [facility] on 12/19/17 and was evaluated by GI with recommendations for paracentesis on 12/18/17 in which 5 L of fluid was removed. GI recommendations at that time was to continue Lasix and Aldactone in addition to lactulose as needed. Further recommendations for EGD for variceal surveillance. Patients cirrhosis is thought to be secondary to CHF, known EF of 20%. Pt is currently on BiPAP, most information obtained from H&P. Prior CV testing: TTE 01/17/18: LVEF 20%. Severe global left ventricular systolic dysfunction. Mildly dilated right ventricle. Moderate right ventricular hypokinesis. Mildly dilated left atrium and right atrium. Mild tricuspid regurgitation. Unable to estimate pulmonary artery pressure due to lack of TR jet and IVC not visualized. Past Med Surg Social Fam HX - Past Medical History Medical history: atrial fibrillation, cardiomyopathy, cirrhosis, CHF, coronary artery disease, diabetes, hyperlipidemia, hypertension, myocardial infarction Additional medical history: neuropathy Psychiatric history: depression - Past Surgical History Surgical History: angioplasty/stent, coronary bypass (CABG), pacemaker/AICD Additional surgical history: CARDIAC STENTS X 3 (2000), CABG w/ 4 bypasses (2006 ), demand pacemaker 09/2014 - Social History Smoking Status: Former smoker Smokeless Tobacco Status: No Alcohol use: rarely Drug use: none - Family History Father Living Status: Hx Family Cardiac Disorders: Yes (Cardiomyopathy) Hx Family Cancer: Yes (BOWEL CA) Mother Living Status: Hx Family Neurologic Disorders: Yes (CVA) Sister Hx Family Cardiac Disorders: Yes (CABG X 4) Medications and Allergies Aspirin [Lo-Dose Aspirin EC] 81 mg PO DAILY 12/03/15 [History] Carvedilol 18.75 mg PO BID 12/03/15 [History] Furosemide [Lasix] 40 mg PO DAILY 12/03/15 [History] Albuterol Sulfate [Albuterol Inhaler] 2 puff IH Q4HR PRN #1 [email or web address] 11/25/17 [Rx] Atorvastatin Calcium [Lipitor] 80 mg PO HS 12/18/17 [History] Cyanocobalamin (B-12) [Vitamin B12] 1,000 mcg PO DAILY 12/18/17 [History] [place]-3/Dha/Epa/Fish Oil [Fish Oil 1,000 mg Softgel] 1 cap PO DAILY 12/18/17 [ History] Gabapentin [Neurontin] 400 mg PO TID 01/18/18 [History] Levocetirizine Dihydrochloride [Allergy Relief] 5 mg PO DAILY 01/18/18 [History] Spironolactone [Aldactone] 100 mg PO DAILY 01/18/18 [History] 3 Allergy/AdvReac Type Severity Reaction Status Date / Time No Known Allergies Allergy Verified 07/15/17 14:11 All Systems Review: The remainder of the systems were reviewed and are negative - Constitutional Constitutional: weight gain - Cardiovascular Cardiovascular: as per HPI, dyspnea at rest, dyspnea on exertion, leg edema Physical Examination Vital Signs, Last 4 Hours Temp Pulse Resp BP Pulse Ox 01/18/18 11:32 97.0 F L 89 20 118/91 92 Vital Signs Temp Pulse Resp BP Pulse Ox 01/18/18 11:32 97.0 F L 89 20 118/91 92 01/18/18 07:36 101 01/18/18 07:02 97.3 F L 92 22 128/97 94 01/18/18 03:00 98.3 F 95 19 116/95 94 01/17/18 23:40 98.3 F 121 22 126/94 95 01/17/18 18:59 97.6 F 110 20 138/100 91 01/17/18 14:49 98.7 F 100 22 125/90 94 Intake and Output 01/17/18 01/18/18 01/18/18 23:59 07:59 15:59 Intake Total 200 / 200 Output Total 350 / 350 300 / 300 300 / 300 Balance -150 / -150 -300 / -300 -300 / -300 Intake: IV Fluids 200 / 200 Flexbumin 25 gm In 100 ml @ 60 200 / 200 mls/hr IVC .Q1H40M [facility] Rx#: [id number] Output: Urine 350 / 350 300 / 300 300 / 300 Other: Weight 124.9 kg Blood Glucose* 181 120 129 Patient Weight 01/18/18 23:59 Weight 124.9 kg General: Conversant, Other (on BiPAP) HEENT: Atraumatic, Normocephaly, Mucus Membranes Moist Neck: Normal carotid pulses Cardiac: Other (irregularly irregular) Lungs: Other (diminished) Neuro: Alert and responsive, No focal deficits noted Abdomen: Soft Skin: No rashes noted on visualized skin Musculoskeletal: No Chest Wall Tenderness Extremities: Other (BLE wrapped) Results 01/18/18 06:42 01/18/18 10:51 Lab Results 01/17/18 01/18/18 01/18/18 18:26 06:42 06:42 WBC 11.0 Hgb 16.3 Hct 51.7 H Plt Count 261 INR 2.2 Sodium Potassium Chloride Carbon Dioxide BUN Creatinine Glucose Calcium Total Bilirubin AST ALT Alkaline Phosphatase B-Natriuretic Peptide 746 H 01/18/18 10:51 WBC Hgb Hct Plt Count INR Sodium 131 L Potassium 4.4 Chloride 100 Carbon Dioxide 24 BUN 27 H Creatinine 1.06 Glucose 156 H Calcium 8.7 Total Bilirubin 2.2 H AST 31 ALT 12 Alkaline Phosphatase 116 H B-Natriuretic Peptide Short CBC 01/18/18 Range/Units 06:42 WBC 11.0 (4.3-11.1) K/mcL Hgb 16.3 (12.9-16.9) g/dL Hct 51.7 H (37.5-50.1) % Plt Count 261 (140-400) K/mcL Neutrophils # 8.8 (1.6-8.9) K/mcL BMP 01/18/18 Range/Units 10:51 Sodium 131 L (136-145) mEq/L Potassium 4.4 (3.5-5.1) mEq/L Chloride 100 (98-107) mEq/L Carbon Dioxide 24 (23-29) mEq/L BUN 27 H (8-23) mg/dL Creatinine 1.06 (0.70-1.30) mg/dL Glucose 156 H (70-105) mg/dL Calcium 8.7 (8.6-10.3) mg/dL Liver Function 01/18/18 Range/Units 10:51 Total Bilirubin 2.2 H (0.3-1.0) mg/dL AST 31 (13-39) Units/L ALT 12 (7-52) Units/L Alkaline Phosphatase 116 H (34-104) Units/L Albumin 3.5 (3.5-5.7) g/dL Impressions Echocardiogram 01/17/18 15:39 Impressions: LVEF 20%. Severe global left ventricular systolic dysfunction. Mildly dilated right ventricle. Moderate right ventricular hypokinesis. Mildly dilated left atrium and right atrium. Mild tricuspid regurgitation. Unable to estimate pulmonary artery pressure due to lack of TR jet and IVC not visualized. Left Ventricular Wall Motion: Rest Echo Findings The apex, apical inferior, mid inferior, basal inferior, apical anterior, mid anterior, basal anterior, apical septal, mid inferior septal, basal inferior septal, apical lateral, mid anterior lateral, basal anterior lateral, mid anterior septal, mid inferior lateral, basal anterior septal and basal inferior lateral young were hypokinetic. Findings: Study Quality * Technically adequate exam. ECG Findings * Atrial fibrillation. Left Ventricle * LVEF 20%. * Normal LV chamber size, wall thickness. * Severe global left ventricular systolic dysfunction. * Moderate left ventricular diastolic dysfunction. * Definity echo contrast was used. * There is no LV thrombus. Right Ventricle * Mildly dilated right ventricle. * Moderate right ventricular hypokinesis. Left Atrium * Mildly dilated left atrium. Right Atrium * Mildly dilated right atrium. Interatrial Septum * Interatrial septum not well evaluated. Aortic Valve * Moderately calcified aortic valve leaflets. * No aortic stenosis. * No aortic regurgitation. Mitral Valve * Normal mitral valve structure. * No mitral regurgitation. Tricuspid Valve * Unable to estimate RVSP due to lack of TR jet. * Tricuspid valve not well visualized. * Mild tricuspid regurgitation. * Estimated RVSP is RV-RA gradient 17 mmHg. Pulmonic Valve * Pulmonic valve not well visualized. * No pulmonic regurgitation. Aorta * Normally sized aortic root. Pericardium * The pericardium appears normal. IVC * The IVC is not well evaluated. Pleural Effusion * present pleural effusion. Device lead * A device lead was visualized in the right atrium and right ventricle. Abdomen Ultrasound 01/17/18 15:49 IMPRESSION: Moderate ascites visualized in all 4 quadrants. D/ / Sridhar Parsons MD / Sridhar Parsons MD Interpreting Provider: Sridhar Parsons MD Active Medications Furosemide (Lasix) 40 mg IVP BIDDIURETIC GENARO Stop: 07/19/18 21:01 Last Admin: 01/18/18 07:24 Dose: 40 mg Heparin Sodium (Porcine) (Heparin) 5,000 unit SQ Q8HCO GENARO Stop: 07/19/18 22:01 Last Admin: 01/18/18 05:57 Dose: 5,000 unit Metoprolol Tartrate (Lopressor) 12.5 mg PO BID GENARO Stop: 07/19/18 21:01 Last Admin: 01/18/18 07:24 Dose: 12.5 mg Naloxone HCl (Narcan) 0.4 mg IVP Q2MIN PRN PRN Reason: SEE COMMENTS Stop: 07/19/18 17:10 - Imaging and Cardiology Echo: report reviewed - EKG Interpretation EKG results cardiology: other (12 hr tele AVG HR 96, A-Flutter) Consult Discharge Plan - Plan Referrals: Esther Lamar W, CONSUMER MARKETING MANAGER [Primary Care Provider] - <Terrell Talamantes - Last Filed: 01/18/18 19:03> Date of Encounter: 01/18/18 - Attending Attestation Patient was seen and evaluated independently by me. Findings, assessment and plan were discussed at length with patient, questions answered. Agree with nurse practitioner's documentation. Addition as follows, 67 yo CM ho HFrEF EF 20% ICMP s/p ICD, CABG, A flutter, cirrhosis, DM. P/w general edema. Pt decided to be off eliquis and aldactone several wks ago. HD stable, no O2 requirement, able to lie flat, anasarca, bibasilar fine crackles, IR, no M/G/R, abd distention, NT. Tele Aflutter VR ok, TTE today no sig change c/w prior. A: HFrEF ADHF moderate fluid overload due to medication and dietary non- compliance, cirrhosis/ascites,anasarca Chronic atrial flutter, rate ctr ok, off A/C by pt P: - add aldactone, c/w lasix iv, goal baseline wt, watch RFT/K - resume home coreg - assess ACEi/ARB - resume eqliquis Terrell Talamantes MD, PhD Assessment and Plan Discussion w patient/family: The assessment and plan as outlined above was discussed with the patient and/or family members who expressed understanding and agreement. All questions were answered. Thank you for involving us in the care of your patient. Please call with any questions. History of Present Illness History of present illness: Mr. Velásquez is a 67 year old male All Systems Review: The remainder of the systems were reviewed and are negative Physical Examination Vital Signs, Last 4 Hours Temp Pulse Resp BP Pulse Ox 01/18/18 15:37 97.1 F L 78 24 117/84 93 Results 01/18/18 06:42 01/18/18 10:51 Lab Results 01/17/18 01/18/18 01/18/18 18:26 06:42 06:42 WBC 11.0 Hgb 16.3 Hct 51.7 H Plt Count 261 INR 2.2 Sodium Potassium Chloride Carbon Dioxide BUN Creatinine Glucose Calcium Total Bilirubin AST ALT Alkaline Phosphatase B-Natriuretic Peptide 746 H 01/18/18 10:51 WBC Hgb Hct Plt Count INR Sodium 131 L Potassium 4.4 Chloride 100 Carbon Dioxide 24 BUN 27 H Creatinine 1.06 Glucose 156 H Calcium 8.7 Total Bilirubin 2.2 H AST 31 ALT 12 Alkaline Phosphatase 116 H B-Natriuretic Peptide
[2018-01-18] MEDS: Ondansetron ODT 4 MG TAB.RAPDIS SL PRN (14:34)
[2018-01-18] MEDS: Apixaban 5 MG TABLET PO SCH (20:29)
[2018-01-18] MEDS: Albumin 25% 25gram/100mL 25 GM/100 ML IV.SOLN IVC SCH ×2 (20:30→21:50)
[2018-01-19] MEDS ORDERED: Acetaminophen 325 MG TABLET PO PRN (00:09)
[2018-01-19] MEDS ORDERED: traMADol 50 MG TABLET PO ONE (00:12)
[2018-01-19] MEDS: Apixaban 5 MG TABLET PO SCH ×2 (08:15→20:29)
[2018-01-19] MEDS: Furosemide 40 MG/4 ML VIAL IVP SCH ×2 (08:16→16:59)
--- NOTE | 2018-01-19 09:24 | Internal Med Progress Note ---
Hospitalist Progress Note - Encounter Date of Encounter: 01/19/18 Time of Encounter: 11:00 - Subjective Interval History: Patient with some improvements in shortness of breath after starting IV albumin and IV diuresis with Lasix Awaiting paracentesis on 01/20/18 by interventional radiology for recurrent ascites - Exam Vitals: Temp Pulse Resp BP Pulse Ox 97.3 F L 86 22 95/67 94 01/19/18 06:59 01/19/18 06:59 01/19/18 06:59 01/19/18 06:59 01/19/18 06:59 Exam: Gen.: Nonacute distress, alert and oriented 3 ENT: Mucosal membranes moist Respiratory: Lungs are clear to auscultation bilaterally without any wheezing rhonchi or rales Cardiovascular: Normal S1 and S2 regular rate rhythm no murmurs rubs or gallops Abdomen: Distended abdomen Extremities: Bilateral lower extremity edema up to mid thigh Skin: Normal color - Assessment and Plan (1) Non-alcoholic cirrhosis Current Visit: No Status: Acute Assessment and Plan: Patient with past medical history significant for 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 Patient not a candidate for liver transplant. Abdominal ultrasound showed moderate ascites in all 4 quadrants. IR consulted for paracentesis Will continue IV Lasix in addition to IV albumin Will also continue Aldactone. (2) Acute on chronic systolic (congestive) heart failure Current Visit: Yes Status: Acute Assessment and Plan: Echocardiogram on 06/2017 which showed LVEF of 15-20%; patient with history of PCI and CABG. Repeat echocardiogram pending Will continue IV diuresis with 40 mg of Lasix twice daily with fluid restriction and strict I's and Os Cardiology consulted and appreciate recommendations (3) Atrial fibrillation with RVR Current Visit: Yes Status: Acute Assessment and Plan: Patient with heart rate between 100- 130s at [facility] before transfer to [facility]. During inpatient stay at [facility], patient was placed on oral Cardizem and oral digoxin. Cardiology consulted with recommendations to discontinue oral Cardizem and digoxin and to place patient on oral beta vonnie Heart rate controlled on low dose beta vonnie; continue current management Will hold oral anticoagulation with Eliquis due to procedure on 01/20/18 Cardiology consulted and appreciate any additional recommendations (4) Coronary artery disease Current Visit: No Status: Chronic Assessment and Plan: Patient with history of cardiac stents 3 (2000), CABG w/ 4 bypasses (2006) and demand pacemaker 09/2014 Patient with an echocardiogram on 06/2017 which showed LVEF of 15-20%; patient with history of PCI and CABG. Continue statin, aspirin and beta vonnie (5) Bilateral lower leg cellulitis Current Visit: Yes Status: Acute Assessment and Plan: Patient with bilateral lower extremity cellulitis suspect secondary to acute on chronic lower extremity edema. Infection seems less likely as patient afebrile and without leukocytosis therefore we will not restart IV antibiotics that was started at [facility]. (6) Hyponatremia Current Visit: No Status: Acute Assessment and Plan: Sodium 129; will fluid restrict and continue to monitor (7) Diabetes mellitus Current Visit: No Status: Chronic Assessment and Plan: A1c 8.7 on 11/18/17 Continue sliding-scale insulin (8) DVT prophylaxis Current Visit: No Status: Acute Assessment and Plan: Heparin subcutaneous - Time Spent with Patient Total time spent is greater than 50% in coordination of care (as documented) at patient's floor/unit and/or counseling patient: Internal Medicine: Result - Labs CBC & Chem 7: 01/19/18 09:36 01/19/18 09:36 Labs: BMP 01/18/18 10:51 Sodium 131 L Potassium 4.4 Chloride 100 Carbon Dioxide 24 BUN 27 H Creatinine 1.06 Glucose 156 H Calcium 8.7 Liver Function 01/18/18 01/18/18 Range/Units 10:51 18:20 Total Bilirubin 2.2 H (0.3-1.0) mg/dL AST 31 (13-39) Units/L ALT 12 (7-52) Units/L Alkaline Phosphatase 116 H (34-104) Units/L Albumin 3.5 3.1 L (3.5-5.7) g/dL - ABG Interpretation ABG results: PT/INR, D-dimer PT 24.3 Seconds (9.4-12.1) H 01/18/18 06:42 - Impressions Impressions Echocardiogram 01/17/18 15:39 Impressions: LVEF 20%. Severe global left ventricular systolic dysfunction. Mildly dilated right ventricle. Moderate right ventricular hypokinesis. Mildly dilated left atrium and right atrium. Mild tricuspid regurgitation. Unable to estimate pulmonary artery pressure due to lack of TR jet and IVC not visualized. Left Ventricular Wall Motion: Rest Echo Findings The apex, apical inferior, mid inferior, basal inferior, apical anterior, mid anterior, basal anterior, apical septal, mid inferior septal, basal inferior septal, apical lateral, mid anterior lateral, basal anterior lateral, mid anterior septal, mid inferior lateral, basal anterior septal and basal inferior lateral young were hypokinetic. Findings: Study Quality * Technically adequate exam. ECG Findings * Atrial fibrillation. Left Ventricle * LVEF 20%. * Normal LV chamber size, wall thickness. * Severe global left ventricular systolic dysfunction. * Moderate left ventricular diastolic dysfunction. * Definity echo contrast was used. * There is no LV thrombus. Right Ventricle * Mildly dilated right ventricle. * Moderate right ventricular hypokinesis. Left Atrium * Mildly dilated left atrium. Right Atrium * Mildly dilated right atrium. Interatrial Septum * Interatrial septum not well evaluated. Aortic Valve * Moderately calcified aortic valve leaflets. * No aortic stenosis. * No aortic regurgitation. Mitral Valve * Normal mitral valve structure. * No mitral regurgitation. Tricuspid Valve * Unable to estimate RVSP due to lack of TR jet. * Tricuspid valve not well visualized. * Mild tricuspid regurgitation. * Estimated RVSP is RV-RA gradient 17 mmHg. Pulmonic Valve * Pulmonic valve not well visualized. * No pulmonic regurgitation. Aorta * Normally sized aortic root. Pericardium * The pericardium appears normal. IVC * The IVC is not well evaluated. Pleural Effusion * present pleural effusion. Device lead * A device lead was visualized in the right atrium and right ventricle. Consult Discharge Plan - Plan Referrals: Esther Lamar, CENTRAL SUPPLY WORKER [Primary Care Provider] - (4) Coronary artery disease Qualifiers: Coronary Disease-Associated Artery/Lesion type: bypass graft [place] vs. transplanted heart: [place] heart Associated angina: without angina Qualified Code(s): I25.810 - Atherosclerosis of coronary artery bypass graft(s) without angina pectoris (7) Diabetes mellitus Qualifiers: Diabetes mellitus type: type 2 Diabetes mellitus correction insulin use: without correction use Diabetes mellitus complication status: with circulatory complication Diabetes mellitus complication detail: with other circulatory complications Qualified Code(s): E11.59 - Type 2 diabetes mellitus with other circulatory complications
[2018-01-19 09:53] LABS: Basophils % 0.2 %; Eosinophils # 0.1 K/mcL (0.0-0.6); Eosinophils % 0.8 %; Hemoglobin 15.9 g/dL (12.9-16.9); Immature Granulocytes % 0.6 % (0-4); Lymphocytes # 1.1 K/mcL (0.6-4.6); Mean Corpuscular HGB Conc 31.8 g/dL (31.6-35.5); Mean Corpuscular Hemoglobin 24.9 pg (28.0-33.3); Mean Corpuscular Volume 78.2 fL (83.0-100.0); Mean Platelet Volume 10.8 fL (9.4-12.4); Neutrophils # 7.2 K/mcL (1.6-8.9); Platelet Count 242 K/mcL (140-400); Red Blood Count 6.39 M/mcL (4.19-5.50); Red Cell Distribution Width 22.8 % (11.5-14.5); Segmented Neutrophils % 76.4 %
--- NOTE | 2018-01-19 09:57 | Cardiology Progress Note ---
Date of Encounter: 01/19/18 Time of Encounter: 09:54 Assessment and Plan (1) Acute on chronic systolic (congestive) heart failure Current Visit: Yes Status: Acute BNP 746. CXR no acute findings. Presents with worsening dyspnea, LE edema, abdominal distention and weight gain over the past 2 weeks. Known EF 20%--ICD in place. Hx of dietary indiscretion. Also admits to stopping Aldactone. Moderate acites on ABD US. Awaiting paracentesis by interventional radiology for recurrent ascites. Agree with IV Lasix--40mg IV BID. Added back Aldactone at previous dose 100mg daily. If BP does not tolerate, can decrease. Recommend strict I/Os, Na and fluid restriction, daily weights. Cumulative I/O -880mL. Continue IV diuresis. Still volume overloaded on exam. Cardiology signing off. Reconsult PRN. Will coordinate outpt follow-up 1-2 weeks after d/c. (2) Atrial flutter Current Visit: Yes Status: Chronic Known A-Flutter. Home meds included Coreg 18.75mg BID and was anticoagulated on Eliquis 5mg BID--not listed on home meds, as pt states he stopped taking it 1 month ago due to having a friend that had bleeding issues on it. Resumed Eliquis. 12 hr tele aVG HR 96, A-Flutter. Resumed home BB for rate control and Eliquis for AC. Okay to hold Eliquis if necessary for paracentesis. Qualifiers: Atrial flutter type: unspecified Qualified Code(s): I48.92 - Unspecified atrial flutter (3) Ischemic cardiomyopathy Current Visit: Yes Status: Acute Known ICMP s/p ICD. EF 20%. Resume home Coreg and Aldactone. BP will currently not tolerate ACEi/ARB. (4) Coronary artery disease Current Visit: No Status: Chronic Hx of CABG and PCI. Denies CP. Continue ASA, statin, BB. Qualifiers: Coronary Disease-Associated Artery/Lesion type: bypass graft [place] vs. transplanted heart: [place] heart Associated angina: without angina Qualified Code(s): I25.810 - Atherosclerosis of coronary artery bypass graft(s) without angina pectoris Discussion w patient/family: The assessment and plan as outlined above was discussed with the patient and/or family members who expressed understanding and agreement. All questions were answered. Thank you for involving us in the care of your patient. Please call with any questions. I will discuss all the above with Dr. Talamantes and make changes as necessary. Subjective Principal diagnosis: CHF, ascites, AFib Interval history: Patient reports mild improvement in shortness of breath after starting IV albumin and IV diuresis with Lasix. Awaiting paracentesis by interventional radiology for recurrent ascites. Objective Vital Signs, Last 4 Hours Temp Pulse Resp BP Pulse Ox 01/19/18 06:59 97.3 F L 86 22 95/67 94 Vital Signs Temp Pulse Resp BP Pulse Ox 01/19/18 06:59 97.3 F L 86 22 95/67 94 01/19/18 04:01 97.4 F L 84 26 114/87 93 01/19/18 03:32 87 01/18/18 23:44 86 01/18/18 23:36 98.2 F 84 22 111/65 95 01/18/18 20:20 86 01/18/18 20:13 97.7 F 85 24 114/93 94 01/18/18 15:37 97.1 F L 78 24 117/84 93 01/18/18 11:32 97.0 F L 89 20 118/91 92 Intake and Output 01/18/18 01/19/18 01/19/18 23:59 07:59 15:59 Intake Total 670 / 670 120 / 120 Output Total 600 / 600 500 / 500 Balance 70 / 70 -500 / -500 120 / 120 Intake: IV Fluids 200 / 200 Flexbumin 25 gm In 100 ml @ 60 200 / 200 mls/hr IVC .Q1H40M [facility] Rx#: [id number] Oral 470 / 470 120 / 120 Output: Urine 600 / 600 500 / 500 Other: Meal Breakfast Percent of Meal Consumed 10% Stool Consistency loose Stool Color Brown Weight 124.1 kg Blood Glucose* 175 108 Patient Weight 01/19/18 23:59 Weight 124.1 kg General: Conversant, No Apparent Distress HEENT: Atraumatic, Normocephaly, Mucus Membranes Moist Neck: Normal carotid pulses Cardiac: Other (irregular) Lungs: Other (diminished) Neuro: Alert and responsive, No focal deficits noted Abdomen: Non-Tender, Other (distended) Skin: No rashes noted on visualized skin Musculoskeletal: No Chest Wall Tenderness Extremities: Other (BLE wrapped, pitting edema up to thighs.) Results 01/19/18 09:36 01/18/18 10:51 Lab Results 01/18/18 01/19/18 10:51 09:36 WBC 9.5 Hgb 15.9 Hct 50.0 Plt Count 242 Sodium 131 L Potassium 4.4 Chloride 100 Carbon Dioxide 24 BUN 27 H Creatinine 1.06 Glucose 156 H Calcium 8.7 Total Bilirubin 2.2 H AST 31 ALT 12 Alkaline Phosphatase 116 H Short CBC 01/19/18 Range/Units 09:36 WBC 9.5 (4.3-11.1) K/mcL Hgb 15.9 (12.9-16.9) g/dL Hct 50.0 (37.5-50.1) % Plt Count 242 (140-400) K/mcL Neutrophils # 7.2 (1.6-8.9) K/mcL BMP 01/18/18 Range/Units 10:51 Sodium 131 L (136-145) mEq/L Potassium 4.4 (3.5-5.1) mEq/L Chloride 100 (98-107) mEq/L Carbon Dioxide 24 (23-29) mEq/L BUN 27 H (8-23) mg/dL Creatinine 1.06 (0.70-1.30) mg/dL Glucose 156 H (70-105) mg/dL Calcium 8.7 (8.6-10.3) mg/dL Liver Function 01/18/18 01/18/18 Range/Units 18:20 10:51 Total Bilirubin 2.2 H (0.3-1.0) mg/dL AST 31 (13-39) Units/L ALT 12 (7-52) Units/L Alkaline Phosphatase 116 H (34-104) Units/L Albumin 3.1 L 3.5 (3.5-5.7) g/dL Active Medications Apixaban (Eliquis) 5 mg PO BID GENARO Stop: 07/20/18 21:01 Last Admin: 01/19/18 08:15 Dose: 5 mg Carvedilol (Coreg) 18.75 mg PO BIDWM GENARO PRN Reason: Protocol Stop: 07/20/18 17:01 Last Admin: 01/19/18 08:15 Dose: 18.75 mg Furosemide (Lasix) 40 mg IVP BIDDIURETIC GENARO Stop: 07/19/18 21:01 Last Admin: 01/19/18 08:16 Dose: 40 mg Naloxone HCl (Narcan) 0.4 mg IVP Q2MIN PRN PRN Reason: SEE COMMENTS Stop: 07/19/18 17:10 Ondansetron HCl (Zofran Odt) 4 mg SL Q6HR PRN PRN Reason: Nausea And Vomiting Stop: 07/20/18 13:25 Last Admin: 01/18/18 14:34 Dose: 4 mg Spironolactone (Aldactone) 100 mg PO DAILY [facility] Stop: 07/20/18 12:31 Last Admin: 01/19/18 08:15 Dose: 100 mg - Imaging and Cardiology Echo: report reviewed - EKG Interpretation EKG results cardiology: other (12 hr tele AVG HR 96, A-Flutter) Consult Discharge Plan - Plan Referrals: Esther Lamar, HVAC INSTALLATION TECHNICIAN [Primary Care Provider] -
[2018-01-19 10:14] LABS: BUN/Creatinine Ratio 25 (6-26); Blood Urea Nitrogen 28 mg/dL (8-23); Carbon Dioxide 25 mEq/L (23-29); Chloride 99 mEq/L (98-107); Potassium 4.2 mEq/L (3.5-5.1); Sodium 133 mEq/L (136-145)
[2018-01-19 10:15] LABS: Calcium 8.8 mg/dL (8.6-10.3); Glucose 170 mg/dL (70-105); Osmolality,Calculated 285 (280-300); eGFR For Non-African Americans > 60 (> 60)
[2018-01-19] MEDS: Ondansetron ODT 4 MG TAB.RAPDIS SL PRN (18:12)
[2018-01-19] MEDS: Albumin 25% 25gram/100mL 25 GM/100 ML IV.SOLN IVC SCH ×2 (20:17→22:11)
[2018-01-20] MEDS: Furosemide 40 MG/4 ML VIAL IVP SCH ×2 (07:33→17:14)
--- NOTE | 2018-01-20 09:26 | Internal Med Progress Note ---
Hospitalist Progress Note - Encounter Date of Encounter: 01/20/18 Time of Encounter: 11:00 - Subjective Interval History: Patient with some improvements in shortness of breath after treatment with Aldactone, IV albumin and IV diuresis with Lasix Awaiting paracentesis on 01/20/18 by interventional radiology for recurrent ascites - Exam Vitals: Temp Pulse Resp BP Pulse Ox 98.4 F 81 20 122/90 94 01/20/18 07:35 01/20/18 07:35 01/20/18 07:35 01/20/18 07:35 01/20/18 07:35 Exam: Gen.: Nonacute distress, alert and oriented 3 ENT: Mucosal membranes moist Respiratory: Lungs are clear to auscultation bilaterally without any wheezing rhonchi or rales Cardiovascular: Normal S1 and S2 regular rate rhythm no murmurs rubs or gallops Abdomen: Distended abdomen Extremities: Bilateral lower extremity edema up to mid thigh Skin: Normal color - Assessment and Plan (1) Non-alcoholic cirrhosis Current Visit: No Status: Acute Assessment and Plan: Patient with past medical history significant for 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 Patient not a candidate for liver transplant. Abdominal ultrasound showed moderate ascites in all 4 quadrants. IR consulted for paracentesis today Will continue Aldactone, IV Lasix in addition to IV albumin GI also consulted and appreciate any additional recommendations (2) Acute on chronic systolic (congestive) heart failure Current Visit: Yes Status: Acute Assessment and Plan: Echocardiogram on 06/2017 which showed LVEF of 15-20%; patient with history of PCI and CABG. Hx of dietary indiscretion. Also admits to stopping Aldactone. Repeat echocardiogram showed LVEF of 20% with severe global left ventricular systolic dysfunction with moderate right ventricular hypokinesis; ICD in place Will continue IV diuresis with 40 mg of Lasix twice daily with fluid restriction and strict I's and Os Cardiology consulted and agrees with the above management (3) Atrial fibrillation with RVR Current Visit: Yes Status: Acute Assessment and Plan: Patient with heart rate between 100-130s at [facility] before transfer to [facility]. During inpatient stay at [facility], patient was placed on oral Cardizem and oral digoxin. Cardiology consulted with recommendations to discontinue oral Cardizem and digoxin and to place patient on oral beta vonnie Heart rate controlled on low dose beta vonnie; continue current management Will hold oral anticoagulation with Eliquis due to procedure on 01/20/18 but restart after procedure Cardiology agrees with above management (4) Coronary artery disease Current Visit: No Status: Chronic Assessment and Plan: Patient with history of cardiac stents 3 (2000), CABG w/ 4 bypasses (2006) and demand pacemaker 09/2014 Continue statin, aspirin and beta vonnie (5) Bilateral lower leg cellulitis Current Visit: Yes Status: Acute Assessment and Plan: Patient with bilateral lower extremity cellulitis suspect secondary to acute on chronic lower extremity edema. Infection seems less likely as patient afebrile and without leukocytosis therefore we will not restart IV antibiotics that was started at [facility]. (6) Hyponatremia Current Visit: No Status: Acute Assessment and Plan: Sodium 128 on admission (01/15/18) and was 133 on 01/19/18 Continue to monitor (7) Diabetes mellitus Current Visit: No Status: Chronic Assessment and Plan: A1c 8.7 on 11/18/17 Continue sliding-scale insulin (8) DVT prophylaxis Current Visit: No Status: Acute Assessment and Plan: Patient on Eliquis - Time Spent with Patient Total time spent is greater than 50% in coordination of care (as documented) at patient's floor/unit and/or counseling patient: Internal Medicine: Result - Labs CBC & Chem 7: 01/20/18 12:01 01/20/18 12:01 Labs: Short CBC 01/19/18 Range/Units 09:36 WBC 9.5 (4.3-11.1) K/mcL Hgb 15.9 (12.9-16.9) g/dL Hct 50.0 (37.5-50.1) % Plt Count 242 (140-400) K/mcL Neutrophils # 7.2 (1.6-8.9) K/mcL BMP 01/19/18 09:36 Sodium 133 L Potassium 4.2 Chloride 99 Carbon Dioxide 25 BUN 28 H Creatinine 1.10 Glucose 170 H Calcium 8.8 - ABG Interpretation ABG results: PT/INR, D-dimer PT 24.3 Seconds (9.4-12.1) H 01/18/18 06:42 Consult Discharge Plan - Plan Referrals: Tigre Malik MD [Partnered Physician] - 01/27/18 2:00 pm Esther Lamar CNP [Primary Care Provider] - 02/06/18 2:30 pm Kristie Mahoney MD [Partnered Physician] - (sent web request on 01-20-18 @ 0520) (4) Coronary artery disease Qualifiers: Coronary Disease-Associated Artery/Lesion type: bypass graft [place] vs. transplanted heart: [place] heart Associated angina: without angina Qualified Code(s): I25.810 - Atherosclerosis of coronary artery bypass graft(s) without angina pectoris (7) Diabetes mellitus Qualifiers: Diabetes mellitus type: type 2 Diabetes mellitus assisted insulin use: without assisted use Diabetes mellitus complication status: with circulatory complication Diabetes mellitus complication detail: with other circulatory complications Qualified Code(s): E11.59 - Type 2 diabetes mellitus with other circulatory complications
--- NOTE | 2018-01-20 10:28 | IR Procedure Note ---
Date of procedure: 01/20/18 Consent Obtained: Written consent Timeout: Correct patient and procedure verified, Time out performed, Skin prep completed Local anesthetic: Lidocaine 1% Indications: Ascites Procedure Performed: Paracentesis Was there an assistant sales manager present: Yes Cannon Pinion Adjuster: Viraj Leon Estimated blood loss (cc): 0 Complications: None; Tolerated procedure well Post Procedure Treatment Plan: Monitor on floor Specimen: To path
[2018-01-20] MEDS ORDERED: Albumin 25% 25gram/100mL 50 GM/200 ML IV.SOLN IVPB SCH (11:00)
[2018-01-20 11:51] LABS: Total Protein,Peritoneal Fluid 3.3 g/dL (No Ref Range)
[2018-01-20 12:13] LABS: Basophils % 0.6 %; Eosinophils # 0.2 K/mcL (0.0-0.6); Eosinophils % 2.5 %; Hematocrit 50.3 % (37.5-50.1); Hemoglobin 15.9 g/dL (12.9-16.9); Immature Granulocytes % 0.9 % (0-4); Lymphocytes % 14.9 %; Mean Corpuscular HGB Conc 31.6 g/dL (31.6-35.5); Mean Corpuscular Hemoglobin 24.8 pg (28.0-33.3); Mean Corpuscular Volume 78.3 fL (83.0-100.0); Mean Platelet Volume 10.6 fL (9.4-12.4); Monocytes # 0.7 K/mcL (0.0-1.3); Monocytes % 10.3 %; Neutrophils # 4.8 K/mcL (1.6-8.9); Platelet Count 244 K/mcL (140-400); Red Blood Count 6.42 M/mcL (4.19-5.50); Red Cell Distribution Width 22.9 % (11.5-14.5); Segmented Neutrophils % 70.8 %
--- NOTE | 2018-01-20 12:18 | Gastroenterology Consult Note ---
<Geovanny Marie - Last Filed: 01/20/18 12:15> Date of Encounter: 01/20/18 Time of Encounter: 11:20 - Assessment and plan (1) Non-alcoholic cirrhosis Current Visit: No Status: Acute Assessment and plan: MELD-Na 24, Child-Charles class C on admission. Continue Lasix and Aldactone. Use Lactulose for 2-4 BMs daily. No encephalopathy noted. Paracentesis ordered for today. Patient may require more frequent paracentesis as outpatient. AFP 3 on . Paracentesis as needed. Infuse Albumin 25%, 8 gm per liter removed, if greater than 5 liters removed. Lifestyle Changes: 1. Total abstinence from alcohol including social drinking. 2. No smoking. 3. Gradual loss of weight. 4. Drink at least 3 cups of coffee due to its antioxidant effects in the liver, it reduces risk of HCC and advance fibrosis. 5. If needed, use less than 2 g/day of Tylenol (in divided doses). 6. Vaccination for Hep A, B, Pneumococcus if not already received and yearly influenza vaccination by PCP. 7. Avoid NSAIDS as can cause kidney damage. 8. Avoid benzodiazepines and other sedatives such as anti-histamines, narcotics etc. as can cause encephalopathy or confusion. 9. Take a late carbohydrate meal supplement as it reduces glucose production from protein breakdown and thus improves nutrition. 10. In cirrhosis, statins are safe to use and also improve portal hypertension and decrease risk of HCC. - Time Spent With Patient Total time spent is greater than 50% in coordination of care (as documented) at patient's floor/unit and/or counseling patient: GI History of Present Illness - Data of Consult Patient: known to practice within the last 3 years Consult date: 01/20/18 Requesting Physician: Hansel Saunders - Consult Narrative Reason for consult: Recurrent ascites History of present illness: Mr. Velásquez is a 67 year old male with PMHx of cirrhosis, Afib, cardiomyopathy, CHF, CAD, DM, GERD, HLD, HTN, [place] who presented from [facility] inpatient on 01/17/18 due to A. fib with RVR, acute on chronic systolic heart failure and recurrent ascites. atient reports that for the last 2 weeks he noticed bilateral lower extremity edema with seeping from bilateral legs as well. Patient also noticed increased shortness of breath. Pt was d/c'd from [facility] on 12/19/17 and was evaluated by GI with recommendations for paracentesis on 12/18/17 in which 5 L of fluid was removed, EGD was recommended, but patient refused EGD during that admission and wanted to complete it as outpatient. We recommended to continue Lasix and Aldactone with Lactulose PRN. Patients cirrhosis is thought to be secondary to CHF, known EF of 20%. RUQ US on 01/17 showed moderate ascites in all 4 quadrents, left greater than right. Paracentesis has been ordered. Procedures: None NSAIDs: ASA Anticoagulation: None Past Med Surg Social Fam HX - Past Medical History Medical history: atrial fibrillation, cardiomyopathy, cirrhosis, CHF, coronary artery disease, diabetes, hyperlipidemia, hypertension, myocardial infarction Additional medical history: neuropathy Psychiatric history: depression - Past Surgical History Surgical History: angioplasty/stent, coronary bypass (CABG), pacemaker/AICD Additional surgical history: CARDIAC STENTS X 3 (2000), CABG w/ 4 bypasses (2006 ), demand pacemaker 09/2014 - Social History Smoking Status: Former smoker Smokeless Tobacco Status: No Alcohol use: rarely Drug use: none - Family History Father Living Status: Hx Family Cardiac Disorders: Yes (Cardiomyopathy) Hx Family Cancer: Yes (BOWEL CA) Mother Living Status: Hx Family Neurologic Disorders: Yes (CVA) Sister Hx Family Cardiac Disorders: Yes (CABG X 4) - Gastrointestinal Gastrointestinal: Present: as per HPI - Constitutional Constitutional: as per HPI - EENT Eyes: as per HPI Ears: Present: as per HPI Nose, mouth and throat: Present: as per HPI - Cardiovascular Cardiovascular ROS: Present: as per HPI - Respiratory Respiratory IM: Present: as per HPI - Genitourinary Genitourinary: Absent: change in color, Urinary frequency - Neurological ROS Neurological GI: Present: as per HPI - Hematologic/Lymphatic Hematologic/Lymphatic pediatric: Present: as per HPI - Musculoskeletal Musculoskeletal ROS GI: Present: as per HPI - Integumentary Integumentary GI: Present: as per HPI - Psychiatric ROS Psychiatric GI: Present: as per HPI - Endocrine Endocrine IM: Present: as per HPI - Constitutional Vitals: Temp Pulse Resp BP Pulse Ox 98.0 F 80 18 122/83 95 01/20/18 11:22 01/20/18 11:22 01/20/18 11:22 01/20/18 11:22 01/20/18 11:22 General appearance: Present: cooperative, A&O X 3, no acute distress, answers questions appropriately - Head Head exam: Present: atraumatic, normocephalic - Eye Eye exam: Present: normal appearance, sclera anicteric - ENT ENT exam: Present: mucous membranes dry - Neck Neck exam general surgery: Present: normal inspection, trachea midline - Respiratory Respiratory exam: Present: decreased breath sounds, CTAB - Cardiovascular Cardiovascular exam: Present: RRR, +S1, +S2 - GI/Abdominal GI/Abdominal exam: Present: distended, firm, soft, no peritoneal signs. Absent : guarding, tenderness - Expanded GI/Abdominal Exam GI/Abdominal exam expanded: Present: ascites - Rectal Rectal exam: Present: deferred - Extremities Exam Additional comments: BLE wrapped, edema up to thighs - Neurological Exam Neurological exam: Present: no focal deficits - Psychiatric Psychiatric exam: Present: normal affect, normal mood - Skin Skin exam: Present: dry, intact, normal color, warm Results - Labs CBC & Chem 7: 01/20/18 12:01 01/19/18 09:36 Labs: Last Result Calcium 8.8 mg/dL (8.6-10.3) 01/19/18 09:36 Peritoneal Tot Protein 3.3 g/dL (No Ref Range) 01/20/18 10:27 Peritoneal LDH 81 Units/L (No Ref Range) 01/20/18 10:27 Peritoneal Glucose 126 mg/dL (No Ref Range) 01/20/18 10:27 Peritoneal Amylase 35 Units/L (No Ref Range) 01/20/18 10:27 Entire Visit Hgb 15.9 g/dL (12.9-16.9) 01/20/18 12:01 Hct 50.3 % (37.5-50.1) H 01/20/18 12:01 PT 24.3 Seconds (9.4-12.1) H 01/18/18 06:42 Total Bilirubin 2.2 mg/dL (0.3-1.0) H 01/18/18 10:51 AST 31 Units/L (13-39) 01/18/18 10:51 ALT 12 Units/L (7-52) 01/18/18 10:51 - ABG ABG results: PT/INR, D-dimer PT 24.3 Seconds (9.4-12.1) H 01/18/18 06:42 - Impressions Impressions Paracentesis Ultrasound 01/20/18 07:07 IMPRESSION: 1. Successful ultrasound guided paracentesis. D/ / Hernando Miller MD / Hernando Miller MD Interpreting Provider: Hernando Miller MD Consult Discharge Plan - Plan Referrals: Tigre Malik MD [Partnered Physician] - 01/27/18 2:00 pm Esther Lamar CNP [Primary Care Provider] - 02/06/18 2:30 pm Kristie Mahoney MD [Partnered Physician] - (sent web request on 01-20-18 @ 1268) <Kristie Mahoney - Last Filed: 01/20/18 18:29> Date of Encounter: 01/20/18 Time of Encounter: 14:00 - Time Spent With Patient Total time spent is greater than 50% in coordination of care (as documented) at patient's floor/unit and/or counseling patient: GI History of Present Illness - Data of Consult Requesting Physician: Hansel Saunders - Consult Narrative History of present illness: Mr. Velásquez is a 67 year old male - Constitutional Vitals: Temp Pulse Resp BP Pulse Ox 97.8 F 77 18 109/68 95 01/20/18 15:57 01/20/18 15:57 01/20/18 15:57 01/20/18 15:57 01/20/18 15:57 Results - Labs CBC & Chem 7: 01/20/18 12:01 01/20/18 12:01 Labs: Last Result Calcium 8.9 mg/dL (8.6-10.3) 01/20/18 12:01 Peritoneal Appearance CLEAR (Clear) 01/20/18 10:27 Peritoneal Volume 60.0 mL 01/20/18 10:27 Peritoneal RBC 0.002 M/mcL (0.000-0.002) 01/20/18 10:27 Periton Tot Nuc Cells 178 TNC/mcL (0-300) 01/20/18 10:27 Periton Band Neuts Test Not Performed 01/20/18 10:27 Periton Lymphocytes % 56.0 % 01/20/18 10:27 Periton Monocytes % 9.0 % 01/20/18 10:27 Periton Other Cells % Test Not Performed 01/20/18 10:27 Peritoneal Tot Protein 3.3 g/dL (No Ref Range) 01/20/18 10:27 Peritoneal LDH 81 Units/L (No Ref Range) 01/20/18 10:27 Peritoneal Glucose 126 mg/dL (No Ref Range) 01/20/18 10:27 Peritoneal Amylase 35 Units/L (No Ref Range) 01/20/18 10:27 Entire Visit Hgb 15.9 g/dL (12.9-16.9) 01/20/18 12:01 Hct 50.3 % (37.5-50.1) H 01/20/18 12:01 PT 24.3 Seconds (9.4-12.1) H 01/18/18 06:42 Total Bilirubin 2.2 mg/dL (0.3-1.0) H 01/18/18 10:51 AST 31 Units/L (13-39) 01/18/18 10:51 ALT 12 Units/L (7-52) 01/18/18 10:51 - ABG ABG results: PT/INR, D-dimer PT 24.3 Seconds (9.4-12.1) H 01/18/18 06:42 - Impressions Impressions Paracentesis Ultrasound 01/20/18 07:07 IMPRESSION: 1. Successful ultrasound guided paracentesis. D/ / Hernando Miller MD / Hernando Miller MD Interpreting Provider: Hernando Miller MD - Attending Attestation I have personally performed a face to face evaluation on this patient. I have reviewed and agree with the care plan. History and Exam by me shows: Patient seen at the bedside complaining of some discomfort at his ascitic tap sign. Examination does has ascites with abdominal wall edema and lower extremity edema. Assessment: cirrhosis multifactorial including cardiac component with low EF and also with Ascites. Rec: Due to His CHF with low EF patient is not a candidate for TIPS. Optimization of the oral diuretics with careful wach kidney function. will also schedule him for outpatient ascitic tap every 2 weekly. Because of multiple comorbidities his long-term prognosis is poor
[2018-01-20 12:39] LABS: RBC,Peritoneal Fluid 0.002 M/mcL
[2018-01-20 12:47] LABS: BUN/Creatinine Ratio 29 (6-26); Blood Urea Nitrogen 26 mg/dL (8-23); Calcium 8.9 mg/dL (8.6-10.3); Carbon Dioxide 26 mEq/L (23-29); Chloride 98 mEq/L (98-107); Glucose 116 mg/dL (70-105); Osmolality,Calculated 286 (280-300); Potassium 3.9 mEq/L (3.5-5.1); Sodium 135 mEq/L (136-145); eGFR For Non-African Americans > 60 (> 60)
[2018-01-20] MEDS: Apixaban 5 MG TABLET PO SCH ×2 (12:55→20:50)
[2018-01-20] MEDS: Ondansetron ODT 4 MG TAB.RAPDIS SL PRN ×2 (12:57→22:39)
[2018-01-20] MEDS: Albumin 25% 25gram/100mL 50 GM/200 ML IV.SOLN IVPB SCH (12:58)
[2018-01-20 14:39] LABS: Appearance of Peritoneal Fl CLEAR (Clear)
[2018-01-20] MEDS ORDERED: Ibuprofen 600 MG TABLET PO ONE (17:31)
[2018-01-21] MEDS: Ondansetron ODT 4 MG TAB.RAPDIS SL PRN (08:51)
[2018-01-21] MEDS: Apixaban 5 MG TABLET PO SCH ×2 (08:51→20:40)
[2018-01-21] MEDS: Furosemide 40 MG/4 ML VIAL IVP SCH ×2 (08:51→16:51)
[2018-01-21] MEDS: *HR* HYDROcodone/Acet 5/325 mg TABLET PO PRN (10:38)
[2018-01-21] MEDS: Albumin 25% 25gram/100mL 50 GM/200 ML IV.SOLN IVPB SCH (10:45)
[2018-01-21] MEDS: Gabapentin 400 MG CAPSULE PO SCH ×2 (13:59→20:40)
--- NOTE | 2018-01-21 15:40 | Internal Med Progress Note ---
Hospitalist Progress Note - Encounter Date of Encounter: 01/21/18 Time of Encounter: 15:37 - Subjective Interval History: Patient seen and evaluated at bedside, patient reports that he still feels short of breath. On evaluation patient with labor breathing. Denies chest pain, or abdominal pain. No nausea or vomiting. - Exam Vitals: Temp Pulse Resp BP Pulse Ox 97.1 F L 80 16 130/85 91 01/21/18 11:50 01/21/18 11:50 01/21/18 11:50 01/21/18 11:50 01/21/18 11:50 Exam: General: Alert and orientedx4. In mild distress due to SOB. Skin: Erythema in the lower extr bilaterally. HEENT: EOM, pupils equal, round and reactive. Cardiovascular: Irregularly, irregular, Normal S1 & S2, no rubs, murmurs or gallops. Lungs: Minimal crackles at the bases b/l, no wheezes or rales. Abdomen:Distended, Soft, non-tender, no rigidity. Extremities:Anasarca, b/l erythema in the lower extr. Neurological: Normal cognition. CN II-XII intact. Rest of the physical exam is non contributory - Assessment and Plan (1) Acute on chronic systolic (congestive) heart failure Current Visit: Yes Status: Acute Assessment and Plan: Echocardiogram on 06/2017 which showed LVEF of 15-20%; patient with history of PCI and CABG. Plan Patient on fluids restriction to 1.8 litters of fluids a day On furosemide 40mg/IV BID. patient on anasarca with labor breathing. Increase furosemide to 60mg/IV BID Continue Beta vonnie and Spironolactone. Daily weight (2) Coronary artery disease Current Visit: No Status: Chronic Assessment and Plan: Patient on atorvastatin. Will resume medication as patient with no signs of decompensated liver cirrhosis (3) Diabetes mellitus Current Visit: No Status: Chronic Assessment and Plan: Blood sugar within acceptable range. Will start patient on Lispro sliding scale and will adjust coverage as needed. (4) DVT prophylaxis Current Visit: No Status: Acute Assessment and Plan: Patient anticoagulated due to A.fib. (5) Hyponatremia Current Visit: No Status: Acute Assessment and Plan: Serum sodium of 135, patient with no neurological abnormalities. Continue with fluid restriction. (6) Non-alcoholic cirrhosis Current Visit: No Status: Acute Assessment and Plan: S/P paracenthesis with 5 litters of IV fluids removal. Patient on Spironolactone 100mg/PO daily. GI is on board will continue to follow recommendations. (7) Bilateral lower leg cellulitis Current Visit: Yes Status: Acute Assessment and Plan: Significant erythema in both lower extremities, also warmth to touch, mild tenderness. ESR, CRP. Will start patient on Ceftriaxone 1gm/IV daily. (8) Atrial fibrillation Current Visit: Yes Status: Acute Assessment and Plan: Rate controlled on carvedilol 18.75mg/PO BID. On eliquis due to high CHADSVASC score. - Summary of Assessment and Plan Summary of Assessment and Plan: Patient to remain in the hospital due to Respiratory distress. CHF exacerbation and abdominal ascites. - Time Spent with Patient Total time spent is greater than 50% in coordination of care (as documented) at patient's floor/unit and/or counseling patient: 25 - 35 minutes Plan of Care Discussed with: patient (the nurse.) Internal Medicine: Result - Labs CBC & Chem 7: 01/20/18 12:01 01/20/18 12:01 - ABG Interpretation ABG results: PT/INR, D-dimer PT 24.3 Seconds (9.4-12.1) H 01/18/18 06:42 Consult Discharge Plan - Plan Referrals: Tigre Malik MD [Partnered Physician] - 01/27/18 2:00 pm Esther Lamar CNP [Primary Care Provider] - 02/06/18 2:30 pm Kristie Mahoney MD [Partnered Physician] - (sent web request on 01-20-18 @ [phone]) (2) Coronary artery disease Qualifiers: Coronary Disease-Associated Artery/Lesion type: bypass graft [place] vs. transplanted heart: [place] heart Associated angina: without angina Qualified Code(s): I25.810 - Atherosclerosis of coronary artery bypass graft(s) without angina pectoris (3) Diabetes mellitus Qualifiers: Diabetes mellitus type: type 2 Diabetes mellitus alf insulin use: without associate sales representative use Diabetes mellitus complication status: with circulatory complication Diabetes mellitus complication detail: with other circulatory complications Qualified Code(s): E11.59 - Type 2 diabetes mellitus with other circulatory complications (8) Atrial fibrillation Qualifiers: Atrial fibrillation type: chronic Qualified Code(s): I48.2 - Chronic atrial fibrillation
[2018-01-21] MEDS ORDERED: Dextrose Gel 15 GM/37.5 ML TUBE PO PRN ×2 (15:56)
[2018-01-21] MEDS ORDERED: D5% in Water 1,000 ML IVC PRN (15:56)
[2018-01-21] MEDS ORDERED: *HR* Dextrose 50 % in Water (Syg) 50 ML SYRINGE IVP PRN (15:56)
[2018-01-21] MEDS: cefTRIAXone 1,000 MG in Water for inj. (sterile) 20 ML 10 ML IVP SCH (16:51)
[2018-01-21] MEDS: Insulin LISPRO 300 UNITS/3 ML VIAL SQ SCH (16:52)
[2018-01-21] MEDS: Insulin DETEMIR 100 UNIT/ML X5UNITS SQ SCH (20:40)
[2018-01-22 08:07] LABS: BUN/Creatinine Ratio 25 (6-26); Blood Urea Nitrogen 25 mg/dL (8-23); Calcium 8.8 mg/dL (8.6-10.3); Carbon Dioxide 33 mEq/L (23-29); Chloride 98 mEq/L (98-107); Glucose 133 mg/dL (70-105); Osmolality,Calculated 288 (280-300); Phosphorous 2.1 mg/dL (2.7-4.5); Potassium 4.1 mEq/L (3.5-5.1); Sodium 136 mEq/L (136-145); eGFR For Non-African Americans > 60 (> 60)
[2018-01-22] MEDS: Gabapentin 400 MG CAPSULE PO SCH ×3 (08:15→20:34)
[2018-01-22] MEDS: Furosemide 40 MG/4 ML VIAL IVP SCH ×2 (08:16→16:46)
[2018-01-22] MEDS: Apixaban 5 MG TABLET PO SCH ×2 (08:16→20:34)
[2018-01-22] MEDS: Insulin LISPRO 300 UNITS/3 ML VIAL SQ SCH ×3 (08:17→16:52)
[2018-01-22] MEDS: *HR* HYDROcodone/Acet 5/325 mg TABLET PO PRN (08:26)
[2018-01-22] MEDS: Albumin 25% 25gram/100mL 50 GM/200 ML IV.SOLN IVPB SCH (11:37)
--- NOTE | 2018-01-22 15:59 | Internal Med Progress Note ---
Hospitalist Progress Note - Encounter Date of Encounter: 01/22/18 Time of Encounter: 15:54 - Subjective Interval History: Seen and evaluated at bedside, reports that his breathing has improved. Denies chest pain, abdominal pain. But reports discomfort in his legs due to swelling, discomfort is more significant in the right lower extremity. - Exam Vitals: Temp Pulse Resp BP Pulse Ox 98.2 F 85 18 107/63 93 01/22/18 11:39 01/22/18 13:00 01/22/18 11:39 01/22/18 11:39 01/22/18 11:39 Exam: General: Alert and orientedx4. No acute distress Cardiovascular: Irregularly, irregular, Normal S1 & S2, no rubs, murmurs or gallops. Lungs: Clear to Auscultation b/l, no wheezes, crackles or rales. Abdomen: Distended, Soft, non-tender, no rigidity. Extremities: Anasarca, b/l erythema in the lower extr. Neurological: Normal cognition. CN II-XII intact. Rest of the physical exam is non contributory - Assessment and Plan (1) Acute on chronic systolic (congestive) heart failure Current Visit: Yes Status: Acute Assessment and Plan: Severe HFrEF s/p ICD TTE report: Impressions: LVEF 20%. Severe global left ventricular systolic dysfunction. Mildly dilated right ventricle. Moderate right ventricular hypokinesis. Mildly dilated left atrium and right atrium. Mild tricuspid regurgitation. Unable to estimate pulmonary artery pressure due to lack of TR jet and IVC not visualized. Plan total balance negative about 7 litters. continue IV diuresis with furosemide 60mg/ BID Strict intake and output daily weight 2 gram sodium diet Fluids restriction to 1.5 litters a day On spironolactone plus carvedilol Cardiology in board, will follow recommendations. (2) Coronary artery disease Current Visit: No Status: Chronic Assessment and Plan: Patient on atorvastatin. (3) Diabetes mellitus Current Visit: No Status: Chronic Assessment and Plan: Patient Levemir 5 units at bedtime plus sliding scale before meals. Continue current management. (4) Non-alcoholic cirrhosis Current Visit: No Status: Acute Assessment and Plan: s/p paracentesis. Plan of care as per GI recommendations. Patient on Spironolactone and Furosemide. (5) Bilateral lower leg cellulitis Current Visit: Yes Status: Acute Assessment and Plan: On ceftriazone 1gm/IV daily. Venous Dupplex of the lower extr ordered. (6) Atrial fibrillation Current Visit: Yes Status: Acute Assessment and Plan: Rate controlled. On carvedilol. Anticoagulated with Eliquis. DVT Prophylaxis: Patient on Eliquis due to A.Fib. - Summary of Assessment and Plan Summary of Assessment and Plan: Patient to remain in the hospital for IV diuresis. - Time Spent with Patient Total time spent is greater than 50% in coordination of care (as documented) at patient's floor/unit and/or counseling patient: 25 - 35 minutes Plan of Care Discussed with: patient Internal Medicine: Result - Labs CBC & Chem 7: 01/20/18 12:01 01/22/18 07:20 Labs: BMP 01/22/18 07:20 Sodium 136 Potassium 4.1 Chloride 98 Carbon Dioxide 33 H BUN 25 H Creatinine 1.02 Glucose 133 H Calcium 8.8 - ABG Interpretation ABG results: PT/INR, D-dimer PT 24.3 Seconds (9.4-12.1) H 01/18/18 06:42 Consult Discharge Plan - Plan Referrals: Tigre Malik MD [Partnered Physician] - 01/27/18 2:00 pm Esther Lamar CNP [Primary Care Provider] - 02/06/18 2:30 pm Kristei Mahoney MD [Partnered Physician] - (sent web request on 01-20-18 @ [id number]) (2) Coronary artery disease Qualifiers: Coronary Disease-Associated Artery/Lesion type: bypass graft [place] vs. transplanted heart: [place] heart Associated angina: without angina Qualified Code(s): I25.810 - Atherosclerosis of coronary artery bypass graft(s) without angina pectoris (3) Diabetes mellitus Qualifiers: Diabetes mellitus type: type 2 Diabetes mellitus usp insulin use: without usp use Diabetes mellitus complication status: with circulatory complication Diabetes mellitus complication detail: with other circulatory complications Qualified Code(s): E11.59 - Type 2 diabetes mellitus with other circulatory complications (6) Atrial fibrillation Qualifiers: Atrial fibrillation type: chronic Qualified Code(s): I48.2 - Chronic atrial fibrillation
[2018-01-22] MEDS: cefTRIAXone 1,000 MG in Water for inj. (sterile) 20 ML 10 ML IVP SCH (16:49)
[2018-01-22] MEDS: Insulin DETEMIR 100 UNIT/ML X5UNITS SQ SCH (20:34)
[2018-01-23 04:49] LABS: INR 2.5; Prothrombin Time 28.1 Seconds (9.4-12.1)
[2018-01-23 04:56] LABS: BUN/Creatinine Ratio 29 (6-26); Blood Urea Nitrogen 24 mg/dL (8-23); Calcium 8.5 mg/dL (8.6-10.3); Carbon Dioxide 29 mEq/L (23-29); Chloride 100 mEq/L (98-107); Glucose 108 mg/dL (70-105); Magnesium 2.1 mg/dL (1.6-2.6); Osmolality,Calculated 289 (280-300); Phosphorous 2.5 mg/dL (2.7-4.5); Potassium 3.7 mEq/L (3.5-5.1); Sodium 137 mEq/L (136-145); eGFR For Non-African Americans > 60 (> 60)
[2018-01-23] MEDS: Furosemide 40 MG/4 ML VIAL IVP SCH ×2 (09:08→15:40)
[2018-01-23] MEDS: Insulin LISPRO 300 UNITS/3 ML VIAL SQ SCH ×3 (09:08→15:40)
[2018-01-23] MEDS: Gabapentin 400 MG CAPSULE PO SCH ×3 (09:20→20:29)
[2018-01-23] MEDS: Apixaban 5 MG TABLET PO SCH ×2 (09:20→20:29)
[2018-01-23] MEDS ORDERED: Furosemide 40 MG/4 ML VIAL ONE (15:29)
[2018-01-23] MEDS: cefTRIAXone 1,000 MG in Water for inj. (sterile) 20 ML 10 ML IVP SCH (15:32)
--- NOTE | 2018-01-23 15:52 | Internal Med Progress Note ---
Hospitalist Progress Note - Encounter Date of Encounter: 01/23/18 Time of Encounter: 15:49 - Subjective Interval History: Patient seen and evaluated at bedside, reports that his breathing is better, but reports still feels abdominal distention, although it is less distended that when he presented to the ED. denied abdominal pain. Nausea or vomiting. - Exam Vitals: Temp Pulse Resp BP Pulse Ox 97.9 F 85 18 114/85 96 01/23/18 15:15 01/23/18 15:15 01/23/18 15:15 01/23/18 15:15 01/23/18 15:15 Exam: General: Alert and orientedx4. No acute distress Cardiovascular: Irregularly, irregular, Normal S1 & S2, no rubs, murmurs or gallops. Lungs: Clear to Auscultation b/l, no wheezes, crackles or rales. Abdomen: Distended, Soft, non-tender, no rigidity. Extremities: Anasarca, b/l erythema in the lower extr. Neurological: Normal cognition. CN II-XII intact. Rest of the physical exam is non contributory - Assessment and Plan (1) Chronic congestive heart failure Current Visit: No Status: Chronic Assessment and Plan: E.F of 20% s/p ICD placement Plan fluid balance negative about 8 litters. decrease furosemide to 40mg BID PO Strict intake and output daily weight continue Fluids restriction to 1.5 litters a day On spironolactone 100mg PO daily and carvedilol 18.75mg/PO BID Potential transfer tomorrow given patient improvement in respiratory status. (2) Coronary artery disease Current Visit: No Status: Chronic Assessment and Plan: On atorvastatin 40 mg by mouth daily. (3) Diabetes mellitus Current Visit: No Status: Chronic Assessment and Plan: Blood sugar is well controlled. Continue Levemir 5 units at bedtime and lispro sliding scale AC (4) Non-alcoholic cirrhosis Current Visit: No Status: Acute Assessment and Plan: Patient on Spironolactone 100mg PO daily. Will repeat Abd US to eval re- accumulation of ascitic fluid as patient referring abdominal distention. Outpatient GI f/u. (5) Bilateral lower leg cellulitis Current Visit: Yes Status: Acute Assessment and Plan: swelling in the lower extremities multi-factorial due to cellulitis vs DVT vs chf. dc ceftriaxone will start augmentin for 5 more days. (6) Atrial fibrillation Current Visit: Yes Status: Acute Assessment and Plan: rate controlled with carvedilol. On an oral anticoagulant due to High CHADSVASC score. (7) DVT (deep venous thrombosis) Current Visit: Yes Status: Acute Assessment and Plan: Venous dupplex US: Lower extremity abnormal deep exam: right superficial femoral vein demonstrates age indeterrminate thrombosis. Left lower extremity: normal superficial and deep exam. Plan continue anticoagulation with Apixaban Will consult vascular surgery to have input wether any new intervention is needed. - Summary of Assessment and Plan Summary of Assessment and Plan: Potential discharge tomorrow. - Time Spent with Patient Total time spent is greater than 50% in coordination of care (as documented) at patient's floor/unit and/or counseling patient: 25 - 35 minutes Plan of Care Discussed with: patient (the nurse.) Internal Medicine: Result - Labs CBC & Chem 7: 01/20/18 12:01 01/23/18 04:12 Labs: BMP 01/23/18 04:12 Sodium 137 Potassium 3.7 Chloride 100 Carbon Dioxide 29 BUN 24 H Creatinine 0.83 Glucose 108 H Calcium 8.5 L - ABG Interpretation ABG results: PT/INR, D-dimer PT 28.1 Seconds (9.4-12.1) H 01/23/18 04:12 Consult Discharge Plan - Plan Referrals: Tigre Malik MD [Partnered Physician] - 01/27/18 2:00 pm Esther Lamar CNP [Primary Care Provider] - 02/06/18 2:30 pm Kristie Mahoney MD [Partnered Physician] - (sent web request on 01-20-18 @ [id number]) (1) Chronic congestive heart failure Qualifiers: Heart failure type: combined systolic and diastolic Qualified Code(s): I50.42 - Chronic combined systolic (congestive) and diastolic (congestive) heart failure (2) Coronary artery disease Qualifiers: Coronary Disease-Associated Artery/Lesion type: bypass graft [place] vs. 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
--- NOTE | 2018-01-23 19:16 | Vascular/Endovasc Consult Note ---
Date of Encounter: 01/23/18 Time of Encounter: 18:50 Assessment and Plan (1) DVT (deep venous thrombosis) Status: Chronic The pathophysiology and natural history of venous thromboembolism was discussed the patient and all questions were answered. The patient has evidence of a distal right superficial femoral vein thrombosis. The thrombus is partially occlusive in the vessel is noncompressible. Given these findings, the thrombus is more likely be a chronic DVT rather than acute DVT. The patient was previously anticoagulated with Eliquis 5 mg twice daily for his atrial fibrillation. However on admission he missed approximately 2-3 doses. At this time, continued anticoagulations recommended. If the patient develops progressive right leg pain and swelling consider repeat imaging. Qualifiers: DVT location: lower extremity Affected thrombotic vein of extremity: unspecified vein of extremity Chronicity: unspecified Laterality: right Qualified Code(s): I82.401 - Acute embolism and thrombosis of unspecified deep veins of right lower extremity (2) Cirrhosis Status: Chronic Qualifiers: Hepatic cirrhosis type: unspecified hepatic cirrhosis Ascites presence: with ascites Qualified Code(s): K74.60 - Unspecified cirrhosis of liver; R18.8 - Other ascites (3) Ischemic cardiomyopathy Status: Chronic (4) Atrial fibrillation Status: Chronic Qualifiers: Atrial fibrillation type: chronic Qualified Code(s): I48.2 - Chronic atrial fibrillation (5) Coronary artery disease Status: Chronic Qualifiers: Coronary Disease-Associated Artery/Lesion type: bypass graft [place] vs. transplanted heart: [place] heart Associated angina: without angina Qualified Code(s): I25.810 - Atherosclerosis of coronary artery bypass graft(s) without angina pectoris (6) Diabetes mellitus Status: Chronic Qualifiers: Diabetes mellitus type: type 2 Diabetes mellitus termite treater insulin use: without termite treater use Diabetes mellitus complication status: with circulatory complication Diabetes mellitus complication detail: with other circulatory complications Qualified Code(s): E11.59 - Type 2 diabetes mellitus with other circulatory complications (7) Essential hypertension Status: Chronic - History of Present Illness Consult date: 01/23/18 Requesting physician: Cisco Harrell Consult reason: Deep vein thrombosis Chief complaint: Leg swelling History of present illness: Mr. Velásquez is a 67 year old male with history of coronary artery disease, cardiomyopathy, cirrhosis, atrial fibrillation, diabetes, hyperlipidemia, hypertension and congestive heart failure. The patient was admitted on 09/28/ 2018 with H or fibrillation with rapid ventricular response. He also reported progressive edema as well as shortness of breath. During his hospitalization he complained of right lower extremity pain and swelling. Venous duplex was ordered which revealed a right lower extremity DVT. Vascular surgery was counseled for further evaluation. At the time of evaluation the patient reports that he is comfortable. He reports his pain is subsided. He denies any chest pain. He reports stable chronic shortness of breath. Past Med Surg Social Fam HX - Past Medical History Medical history: atrial fibrillation, cardiomyopathy, cirrhosis, CHF, coronary artery disease, diabetes, hyperlipidemia, hypertension, myocardial infarction Additional medical history: neuropathy Psychiatric history: depression - Past Surgical History Surgical History: angioplasty/stent, coronary bypass (CABG), pacemaker/AICD Additional surgical history: CARDIAC STENTS X 3 (2000), CABG w/ 4 bypasses (2006 ), demand pacemaker 09/2014 - Social History Smoking Status: Former smoker Smokeless Tobacco Status: No Alcohol use: rarely Drug use: none - Family History Father Living Status: Hx Family Cardiac Disorders: Yes (Cardiomyopathy) Hx Family Cancer: Yes (BOWEL CA) Mother Living Status: Hx Family Neurologic Disorders: Yes (CVA) Sister Hx Family Cardiac Disorders: Yes (CABG X 4) Medications and Allergies Aspirin [Lo-Dose Aspirin EC] 81 mg PO DAILY 12/03/15 [History] Carvedilol 18.75 mg PO BID 12/03/15 [History] Furosemide [Lasix] 40 mg PO DAILY 12/03/15 [History] Albuterol Sulfate [Albuterol Inhaler] 2 puff IH Q4HR PRN #1 [id number] 11/25/17 [Rx] Atorvastatin Calcium [Lipitor] 80 mg PO HS 12/18/17 [History] Cyanocobalamin (B-12) [Vitamin B12] 1,000 mcg PO DAILY 12/18/17 [History] Superior-3/Dha/Epa/Fish Oil [Fish Oil 1,000 mg Softgel] 1 cap PO DAILY 12/18/17 [ History] Gabapentin [Neurontin] 400 mg PO TID 01/18/18 [History] Levocetirizine Dihydrochloride [Allergy Relief] 5 mg PO DAILY 01/18/18 [History] Spironolactone [Aldactone] 100 mg PO DAILY 01/18/18 [History] Amoxicillin/Clavulanate [Augmentin] 875 mg PO BIDWM 5 Days #10 tablet 01/24/18 [ Rx] Apixaban [Eliquis] 5 mg PO BID 30 Days #60 tablet 01/24/18 [Rx] 3 Allergy/AdvReac Type Severity Reaction Status Date / Time No Known Allergies Allergy Verified 07/15/17 14:11 All Systems Review: The remainder of the systems were reviewed and are negative - Constitutional Constitutional: no chills, no fever(s) - Cardiovascular Cardiovascular: dyspnea on exertion, no chest pain at rest, no chest pain with exertion, no dyspnea at rest - Vascular Vascular: lower extremity swelling, no leg pain with exertion - Respiratory Respiratory: no cough - Gastrointestinal Gastrointestinal: no abdominal pain Exam Vital Signs, Last 4 Hours Temp Pulse Resp BP Pulse Ox 01/23/18 15:45 82 18 118/45 96 01/23/18 15:15 97.9 F 85 18 114/85 96 General: Present: Conversant, No Apparent Distress HEENT: Present: Atraumatic, Pupils equal Neck: Absent: JVD, Lymphadenopathy, Left Carotid bruit, Right Carotid bruit Cardiac: Present: Normal S1 and S2, Irregular Rhythm Lungs: Present: Normal Breath Sounds, No Wheeze, Rales, Rhonchi Neuro: Present: Alert and responsive, Cranial nerves grossly intact, Motor nerves grossly intact, Sensory nerves grossly intact Abdomen: Present: Soft, Non-tender, Other (Morbidly obese). Absent: Masses Vascular: Present: Normal capillary refill, Pulse, normal (Pedal signals present bilaterally), Edema (Bilateral lower extremity edema). Absent: Cyanosis Skin: Present: No rashes noted on visualized skin Musculoskeletal: Present: No Chest Wall Tenderness Consult Discharge Plan - Plan Instructions: Amoxicillin/Clavulanate Potassium (By mouth), Apixaban (By mouth) , Heart Failure (DC), Atrial Flutter (DC), Cellulitis (DC) Referrals: Tigre Malik MD [Partnered Physician] - Esther Lamar CNP [Primary Care Provider] - 02/06/18 2:30 pm Kristie Mahoney MD [Partnered Physician] - (sent web request on 01-20-18 @ [id number]) Prescriptions: Amoxicillin/Clavulanate [Augmentin] 875 mg PO BIDWM 5 Days #10 tablet Apixaban [Eliquis] 5 mg PO BID 30 Days #60 tablet
[2018-01-23] MEDS: Insulin DETEMIR 100 UNIT/ML X5UNITS SQ SCH (20:28)
[2018-01-23] MEDS: *HR* HYDROcodone/Acet 5/325 mg TABLET PO PRN (23:32)
[2018-01-24 02:32] LABS: BUN/Creatinine Ratio 23 (6-26); Blood Urea Nitrogen 24 mg/dL (8-23); Calcium 8.7 mg/dL (8.6-10.3); Carbon Dioxide 30 mEq/L (23-29); Chloride 99 mEq/L (98-107); Glucose 187 mg/dL (70-105); Magnesium 2.1 mg/dL (1.6-2.6); Osmolality,Calculated 295 (280-300); Potassium 3.8 mEq/L (3.5-5.1); Sodium 138 mEq/L (136-145); eGFR For Non-African Americans > 60 (> 60)
[2018-01-24] MEDS: Insulin LISPRO 300 UNITS/3 ML VIAL SQ SCH ×3 (08:37→16:28)
[2018-01-24] MEDS: Furosemide 40 MG/4 ML VIAL IVP SCH ×2 (08:38→16:28)
[2018-01-24] MEDS: Gabapentin 400 MG CAPSULE PO SCH ×3 (08:39→20:35)
[2018-01-24] MEDS: Apixaban 5 MG TABLET PO SCH ×2 (08:39→20:35)
--- NOTE | 2018-01-24 13:37 | Discharge Summary ---
- NOTES TO OUTPATIENT PROVIDER Notes to Outpatient Provider: Follow-up with your chair mechanic within a week of hospital discharge. Orders not resulted at time of discharge: Pending orders 01/24/18 00:00 US abdomen complete [US] Routine Date of Encounter: 01/26/18 Time of Encounter: 13:34 - Discharge Diagnosis (1) Chronic congestive heart failure Priority: Primary Status: Chronic Qualifiers: Heart failure type: combined systolic and diastolic Qualified Code(s): I50.42 - Chronic combined systolic (congestive) and diastolic (congestive) heart failure (2) Coronary artery disease Priority: Secondary Status: Chronic Qualifiers: Coronary Disease-Associated Artery/Lesion type: bypass graft [place] vs. transplanted heart: [place] heart Associated angina: without angina Qualified Code(s): I25.810 - Atherosclerosis of coronary artery bypass graft(s) without angina pectoris (3) Diabetes mellitus Priority: Secondary Status: Chronic Qualifiers: Diabetes mellitus type: type 2 Diabetes mellitus jail insulin use: without local intermodal truck driver use Diabetes mellitus complication status: with circulatory complication Diabetes mellitus complication detail: with other circulatory complications Qualified Code(s): E11.59 - Type 2 diabetes mellitus with other circulatory complications (4) Non-alcoholic cirrhosis Priority: Secondary Status: Chronic (5) Bilateral lower leg cellulitis Priority: Secondary Status: Acute (6) Atrial fibrillation Priority: Secondary Status: Chronic Qualifiers: Atrial fibrillation type: chronic Qualified Code(s): I48.2 - Chronic atrial fibrillation (7) DVT (deep venous thrombosis) Priority: Secondary Status: Acute Qualifiers: DVT location: lower extremity Affected thrombotic vein of extremity: unspecified vein of extremity Chronicity: unspecified Laterality: right Qualified Code(s): I82.401 - Acute embolism and thrombosis of unspecified deep veins of right lower extremity Hospital course: Mr. Velásquez is a 67 year old male past medical history significant for ischemic cardiomyopathy with an ejection fraction of 20%, congestive hepatopathy with MELD-Na 16, Child-Charles class B, cardiac stents 3 (2000), CABG w/ 4 bypasses ( 2006), demand pacemaker 09/2014, atrial fibrillation and diabetes who presents from [facility] inpatient on 01/17/18 due to A. fib with RVR, acute on chronic systolic heart failure and recurrent ascites. Patient treated with IV diuresis, and had 5 L of fluid removed by paracentesis. Total balance negative during these admission of a liter, presented to the hospital with 125.8 kg, decreased to 113 kg on discharge. Due to edema and erythema and tenderness in the lower extremity venous Doppler ultrasound was done which revealed Lower extremity abnormal deep exam: right superficial femoral vein demonstrates age indeterrminate thrombosis. Left lower extremity: normal superficial and deep exam. As patient was already on anticoagulant vascular surgery was consulted for evaluation, recommended against intervention, and to continue oral anticoagulant. Patient treated with by mouth antibiotic for cellulitis, eating discharged on oral antibiotic to complete course of treatment. Patient is hemodynamically stable to be discharged, with significant improvement in his respiratory status. - Time Spent with Patient Total time spent providing and/or coordinating discharge services: Less than 30 minutes - Discharge Medications Prescriptions: Amoxicillin/Clavulanate [Augmentin] 875 mg PO BIDWM 5 Days #10 tablet Apixaban [Eliquis] 5 mg PO BID 30 Days #60 tablet Home Medications: Aspirin [Lo-Dose Aspirin EC] 81 mg PO DAILY 12/03/15 [History] Carvedilol 18.75 mg PO BID 12/03/15 [History] Furosemide [Lasix] 40 mg PO DAILY 12/03/15 [History] Albuterol Sulfate [Albuterol Inhaler] 2 puff IH Q4HR PRN #1 hfa.aer.ad 11/25/17 [Rx] Atorvastatin Calcium [Lipitor] 80 mg PO HS 12/18/17 [History] Cyanocobalamin (B-12) [Vitamin B12] 1,000 mcg PO DAILY 12/18/17 [History] [place]-3/Dha/Epa/Fish Oil [Fish Oil 1,000 mg Softgel] 1 cap PO DAILY 12/18/17 [ History] Gabapentin [Neurontin] 400 mg PO TID 01/18/18 [History] Levocetirizine Dihydrochloride [Allergy Relief] 5 mg PO DAILY 01/18/18 [History] Spironolactone [Aldactone] 100 mg PO DAILY 01/18/18 [History] Amoxicillin/Clavulanate [Augmentin] 875 mg PO BIDWM 5 Days #10 tablet 01/24/18 [ Rx] Apixaban [Eliquis] 5 mg PO BID 30 Days #60 tablet 01/24/18 [Rx] Allergies/Adverse Reactions: 3 Allergy/AdvReac Type Severity Reaction Status Date / Time No Known Allergies Allergy Verified 07/15/17 14:11 Date of admission: 01/17/18 14:38 Primary care physician: Esther Lamar CNP Consults: 01/17/18 15:07 Consult to Refrigerated National Truck Driver [CONS] Routine Reason for SW Consult: D/C PLANNING. POSSIBLE NEED FOR HOME HEALTH/O2. 01/17/18 15:40 Consult to Interventional Radiology [CONS] Stat Consulting Provider: Radiology Interventional Cols Reason for Consult: Shortness of breath secondary to respiratory distress, for parencentesis. Call Completed: Yes 01/17/18 15:51 Consult to Wound Care [CONS] Routine Reason for Consult: BLE cellulutis Call Completed: No 01/17/18 17:23 Consult to Cardiology [CONS] Routine Comment: Consulting Provider: Cardiology Maggi Reason for Consult: Acute/chronic systolic heart failure with atrial fibrillation with RVR Call Completed: Yes 01/20/18 08:47 Consult to Nurse Navigator [CONS] Routine Comment: 01/20/18 09:22 Consult to Gastroenterology [CONS] Routine Consulting Provider: Gastroenterology Maggi Reason for Consult: Recurrent ascites with congesitive hepatopathy Call Completed: Yes 01/20/18 09:33 Consult to Physical Therapy [CONS] Routine Comment: Evaluate, develop and implement POC Reason for Consult: Return to IP rehab Does patient have active BEDREST order?: No Is patient medically & hemodynamically stable?: Yes Patient assessed for mobility or mobilized this visit?: Yes OT [Consult to Occupational Therapy] [CONS] Routine Comment: Evaluate, develop and implement POC Reason for Consult: Return to IP rehab Does patient have active BEDREST order?: No Is patient medically & hemodynamically stable?: Yes Patient assessed for mobility or mobilized this visit?: Yes 01/23/18 16:16 Consult to Vascular Surgery [CONS] Routine Consulting Provider: Vascular Surgery [place] Reason for Consult: There is a partially occlusive thrombus seen in the right distal superficial femoral. It demonstrates an incompressible vein. Flow was phasic and it did augment. Call Completed: No - Constitutional Vitals: Temp Pulse Resp BP Pulse Ox 98.0 F 79 18 100/64 93 01/24/18 12:15 01/24/18 12:15 01/24/18 12:15 01/24/18 12:15 01/24/18 12:15 General appearance: Present: A&O X 3, no acute distress Exam: General: Alert and orientedx4. No acute distress Cardiovascular: Irregularly, irregular, Normal S1 & S2, no rubs, murmurs or gallops. Lungs: Clear to Auscultation b/l, no wheezes, crackles or rales. Abdomen: Distended, Soft, non-tender, no rigidity. Extremities: Anasarca, b/l erythema in the lower extr. Neurological: Normal cognition. CN II-XII intact. Rest of the physical exam is non contributory - Patient Status Disposition: Transfer SNF Condition: Fair Functional capacity at discharge: independent ambulation Overall status at discharge: patient is progressing back to baseline - Discharge Instructions Instructions: Amoxicillin/Clavulanate Potassium (By mouth), Apixaban (By mouth) , Heart Failure (DC), Atrial Flutter (DC), Cellulitis (DC) Follow Up With: Tigre Malik MD [Partnered Physician] - 01/27/18 2:00 pm Esther Lamar CNP [Primary Care Provider] - 02/06/18 2:30 pm Kristie Mahoney MD [Partnered Physician] - (sent web request on 01-20-18 @ [id number]) - Diet and Activity Activity: as per physical therapy, resume usual activities as tolerated Diet: low salt diet
[2018-01-24] MEDS: Insulin DETEMIR 100 UNIT/ML X5UNITS SQ SCH (20:34)
[2018-01-24] MEDS: *HR* HYDROcodone/Acet 5/325 mg TABLET PO PRN (20:40)
[2018-01-24] MEDS: Ondansetron ODT 4 MG TAB.RAPDIS SL PRN (20:40)
[2018-01-25] MEDS: Insulin LISPRO 300 UNITS/3 ML VIAL SQ SCH ×3 (08:17→16:35)
[2018-01-25] MEDS: Apixaban 5 MG TABLET PO SCH ×2 (08:20→20:10)
[2018-01-25] MEDS: Furosemide 40 MG/4 ML VIAL IVP SCH ×2 (08:21→16:36)
[2018-01-25] MEDS: Gabapentin 400 MG CAPSULE PO SCH ×3 (08:21→20:10)
--- NOTE | 2018-01-25 13:59 | Internal Med Progress Note ---
Hospitalist Progress Note - Encounter Date of Encounter: 01/26/18 Time of Encounter: 13:57 - Subjective Interval History: Patient seen and evaluated at bedside, reports that he feels that he uses still has some oozing in the lower extremity bilaterally but more in the left leg. States that he is no longer short of breath. Denies abdominal pain or distention. - Exam Vitals: Temp Pulse Resp BP Pulse Ox 98.1 F 81 18 124/87 94 01/25/18 12:10 01/25/18 12:10 01/25/18 12:10 01/25/18 12:10 01/25/18 12:10 Exam: General: Alert and orientedx4. No acute distress Cardiovascular: Irregularly, irregular, Normal S1 & S2, no rubs, murmurs or gallops. Lungs: Clear to Auscultation b/l, no wheezes, crackles or rales. Abdomen: Distended, Soft, non-tender, no rigidity. Extremities: 3+ pitting edema in the lower extr b/l. b/l erythema in the lower extr. Neurological: Normal cognition. CN II-XII intact. Rest of the physical exam is non contributory - Assessment and Plan (1) Chronic congestive heart failure Current Visit: No Status: Chronic Assessment and Plan: 6 L balance negative in these admission. Continue IV diuresis with Lasix 40 mg IV twice a day. Fluid restriction to 1.5 L a day Daily weight 2 g sodium and diabetic diet. Continue carvedilol And a spironolactone. We will start patient on low-dose lisinopril. (2) Coronary artery disease Current Visit: No Status: Chronic Assessment and Plan: Patient on atorvastatin. (3) Diabetes mellitus Current Visit: No Status: Chronic Assessment and Plan: Blood sugar well controlled, continue Levemir 5 units at bedtime and lispro sliding scale before meals. (4) Non-alcoholic cirrhosis Current Visit: No Status: Chronic Assessment and Plan: Repeated Abd US: IMPRESSION: 1. Cirrhotic appearance of the liver, with a small amount of ascites. 2. Mild splenomegaly. 3. Borderline thickening of the gallbladder wall, which is similar to prior exams and most likely related to intrinsic liver disease. No evidence of gallstones. Plan Patient on Spironolactone 100mg PO daily. Outpatient GI f/u. (5) Bilateral lower leg cellulitis Current Visit: Yes Status: Acute Assessment and Plan: Patient on Augmentin 850 mg by mouth twice a day. Continue medication for 2 more days. (6) Atrial fibrillation Current Visit: Yes Status: Chronic Assessment and Plan: Rate controlled patient on carvedilol and Apixaban. Continue current therapy. (7) DVT (deep venous thrombosis) Current Visit: Yes Status: Acute Assessment and Plan: Patient anticoagulated with Apixaban. - Summary of Assessment and Plan Summary of Assessment and Plan: Patient pending insurance authorization for discharge to SNF. - Time Spent with Patient Total time spent is greater than 50% in coordination of care (as documented) at patient's floor/unit and/or counseling patient: 25 - 35 minutes Plan of Care Discussed with: patient Internal Medicine: Result - Labs CBC & Chem 7: 01/26/18 04:38 01/26/18 04:38 - ABG Interpretation ABG results: PT/INR, D-dimer PT 28.1 Seconds (9.4-12.1) H 01/23/18 04:12 - Impressions Impressions Abdomen Ultrasound 01/24/18 00:00 IMPRESSION: 1. Cirrhotic appearance of the liver, with a small amount of ascites. 2. Mild splenomegaly. 3. Borderline thickening of the gallbladder wall, which is similar to prior exams and most likely related to intrinsic liver disease. No evidence of gallstones. D/ / 01/24/2018 16:34:27 Jake Brewer MD / deejay Interpreting Provider: Jake Brewer MD Consult Discharge Plan - Plan Instructions: Amoxicillin/Clavulanate Potassium (By mouth), Apixaban (By mouth) , Heart Failure (DC), Atrial Flutter (DC), Cellulitis (DC) Referrals: Tigre Malik MD [Partnered Physician] - 01/27/18 2:00 pm Esther Lamar CNP [Primary Care Provider] - 02/06/18 2:30 pm Kristie Mahoney MD [Partnered Physician] - (sent web request on 01-20-18 @ [id number]) Prescriptions: Amoxicillin/Clavulanate [Augmentin] 875 mg PO BIDWM 5 Days #10 tablet Apixaban [Eliquis] 5 mg PO BID 30 Days #60 tablet (1) Chronic congestive heart failure Qualifiers: Heart failure type: combined systolic and diastolic Qualified Code(s): I50.42 - Chronic combined systolic (congestive) and diastolic (congestive) heart failure (2) Coronary artery disease Qualifiers: Coronary Disease-Associated Artery/Lesion type: bypass graft [place] vs. 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 use: without fire production operator use Diabetes mellitus complication status: with circulatory complication Diabetes mellitus complication detail: with other circulatory complications Qualified Code(s): E11.59 - Type 2 diabetes mellitus with other circulatory complications (6) Atrial fibrillation Qualifiers: Atrial fibrillation type: chronic Qualified Code(s): I48.2 - Chronic atrial fibrillation (7) DVT (deep venous thrombosis) Qualifiers: DVT location: lower extremity Affected thrombotic vein of extremity: unspecified vein of extremity Chronicity: unspecified Laterality: right Qualified Code(s): I82.401 - Acute embolism and thrombosis of unspecified deep veins of right lower extremity
[2018-01-25] MEDS: *HR* HYDROcodone/Acet 5/325 mg TABLET PO PRN (20:10)
[2018-01-25] MEDS: Insulin DETEMIR 100 UNIT/ML X5UNITS SQ SCH (21:15)
[2018-01-26] MEDS: *HR* HYDROcodone/Acet 5/325 mg TABLET PO PRN ×2 (03:53→20:48)
[2018-01-26 05:02] LABS: Basophils # 0.1 K/mcL (0.0-0.2); Basophils % 0.7 %; Eosinophils # 0.3 K/mcL (0.0-0.6); Eosinophils % 3.6 %; Immature Granulocytes % 0.6 % (0-4); Lymphocytes # 1.4 K/mcL (0.6-4.6); Lymphocytes % 19.5 %; Mean Corpuscular HGB Conc 30.9 g/dL (31.6-35.5); Mean Corpuscular Hemoglobin 24.6 pg (28.0-33.3); Mean Corpuscular Volume 79.6 fL (83.0-100.0); Mean Platelet Volume 9.7 fL (9.4-12.4); Monocytes # 0.8 K/mcL (0.0-1.3); Monocytes % 11.1 %; Neutrophils # 4.5 K/mcL (1.6-8.9); Platelet Count 209 K/mcL (140-400); Red Blood Count 5.78 M/mcL (4.19-5.50); Red Cell Distribution Width 22.4 % (11.5-14.5); Segmented Neutrophils % 64.5 %
[2018-01-26 05:06] LABS: Hemoglobin 14.2 g/dL (12.9-16.9)
[2018-01-26 05:21] LABS: BUN/Creatinine Ratio 26 (6-26); Blood Urea Nitrogen 24 mg/dL (8-23); Carbon Dioxide 32 mEq/L (23-29); Chloride 99 mEq/L (98-107); Glucose 172 mg/dL (70-105); Magnesium 2.1 mg/dL (1.6-2.6); Osmolality,Calculated 294 (280-300); Sodium 138 mEq/L (136-145); eGFR For Non-African Americans > 60 (> 60)
[2018-01-26] MEDS: Gabapentin 400 MG CAPSULE PO SCH ×3 (08:02→20:48)
[2018-01-26] MEDS: Apixaban 5 MG TABLET PO SCH ×2 (08:02→20:49)
[2018-01-26] MEDS: Furosemide 40 MG/4 ML VIAL IVP SCH ×2 (08:06→19:16)
[2018-01-26] MEDS: Insulin LISPRO 300 UNITS/3 ML VIAL SQ SCH ×3 (11:10→19:20)
--- NOTE | 2018-01-26 11:40 | Internal Med Progress Note ---
Hospitalist Progress Note - Encounter Date of Encounter: 01/26/18 Time of Encounter: 11:38 - Subjective Interval History: Seen and evaluated at bedside, laying flat. In no respiratory distress. Reports that he has been having some sciatica type of pain since yesterday. Denies shortness of breath, or chest pain. - Exam Vitals: Temp Pulse Resp BP Pulse Ox 98.8 F 67 18 98/66 90 01/26/18 07:16 01/26/18 07:16 01/26/18 07:16 01/26/18 07:16 01/26/18 07:16 Exam: General: Alert and orientedx4. No acute distress Cardiovascular: Irregularly, irregular, Normal S1 & S2, no rubs, murmurs or gallops. Lungs: Clear to Auscultation b/l, no wheezes, crackles or rales. Abdomen: Distended, Soft, non-tender, no rigidity. Normal active bowel sounds in all 4 quadrants. Extremities: 3+ pitting edema in the lower extr b/l. b/l erythema in the lower extr. Neurological: Normal cognition. CN II-XII intact. Rest of the physical exam is non contributory - Assessment and Plan (1) Chronic congestive heart failure Current Visit: No Status: Chronic Assessment and Plan: Continue furosemide 40 mg IV twice a day. Decrease his spironolactone to 50 mg by mouth daily. Continue carvedilol and lisinopril. Fluid restriction to 1.5 L a day, and daily weight. (2) Coronary artery disease Current Visit: No Status: Chronic Assessment and Plan: Continue atorvastatin. Unclear why patient not on aspirin. (3) Diabetes mellitus Current Visit: No Status: Chronic Assessment and Plan: Blood sugar well controlled. Continue Levemir 5 units at bedtime and lispro before meals and sliding scale. (4) Non-alcoholic cirrhosis Current Visit: No Status: Chronic Assessment and Plan: Repeated Abd US: IMPRESSION: 1. Cirrhotic appearance of the liver, with a small amount of ascites. 2. Mild splenomegaly. 3. Borderline thickening of the gallbladder wall, which is similar to prior exams and most likely related to intrinsic liver disease. No evidence of gallstones. Plan spironolactone decreased to 50 mg by mouth daily, due to drop in BP. Outpatient GI f/u. (5) Bilateral lower leg cellulitis Current Visit: Yes Status: Acute Assessment and Plan: Continue Augmentin 850 mg by mouth twice a day for 1 more day. (6) Atrial fibrillation Current Visit: Yes Status: Chronic Assessment and Plan: Rate controlled on carvedilol. Continue anticoagulation with Apixaban (7) DVT (deep venous thrombosis) Current Visit: Yes Status: Acute Assessment and Plan: Venous Dupplex: Lower extremity abnormal deep exam: right superficial femoral vein demonstrates age indeterrminate thrombosis. Left lower extremity: normal superficial and deep exam. Patient anticoagulated with Apixaban. - Summary of Assessment and Plan Summary of Assessment and Plan: Patient pending insurance authorization for placement. - Time Spent with Patient Total time spent is greater than 50% in coordination of care (as documented) at patient's floor/unit and/or counseling patient: 25 - 35 minutes Plan of Care Discussed with: patient (the nurse.) Internal Medicine: Result - Labs CBC & Chem 7: 01/26/18 04:38 01/26/18 04:38 Labs: Short CBC 01/26/18 Range/Units 04:38 WBC 6.9 (4.3-11.1) K/mcL Hgb 14.2 D (12.9-16.9) g/dL Hct 46.0 (37.5-50.1) % Plt Count 209 (140-400) K/mcL Neutrophils # 4.5 (1.6-8.9) K/mcL BMP 01/26/18 04:38 Sodium 138 Potassium 4.0 Chloride 99 Carbon Dioxide 32 H BUN 24 H Creatinine 0.93 Glucose 172 H Calcium 9.0 - ABG Interpretation ABG results: PT/INR, D-dimer PT 28.1 Seconds (9.4-12.1) H 01/23/18 04:12 Consult Discharge Plan - Plan Instructions: Amoxicillin/Clavulanate Potassium (By mouth), Apixaban (By mouth) , Heart Failure (DC), Atrial Flutter (DC), Cellulitis (DC) Referrals: Tigre Malik MD [Partnered Physician] - 01/27/18 2:00 pm Esther Lamar CNP [Primary Care Provider] - 02/06/18 2:30 pm Kristie Mahoney MD [Partnered Physician] - (sent web request on 01-20-18 @ [phone]) Prescriptions: Amoxicillin/Clavulanate [Augmentin] 875 mg PO BIDWM 5 Days #10 tablet Apixaban [Eliquis] 5 mg PO BID 30 Days #60 tablet (1) Chronic congestive heart failure Qualifiers: Heart failure type: combined systolic and diastolic Qualified Code(s): I50.42 - Chronic combined systolic (congestive) and diastolic (congestive) heart failure (2) Coronary artery disease Qualifiers: Coronary Disease-Associated Artery/Lesion type: bypass graft [place] vs. transplanted heart: [place] heart Associated angina: without angina Qualified Code(s): I25.810 - Atherosclerosis of coronary artery bypass graft(s) without angina pectoris (3) Diabetes mellitus Qualifiers: Diabetes mellitus type: type 2 Diabetes mellitus snf insulin use: without terminal system operator use Diabetes mellitus complication status: with circulatory complication Diabetes mellitus complication detail: with other circulatory complications Qualified Code(s): E11.59 - Type 2 diabetes mellitus with other circulatory complications (6) Atrial fibrillation Qualifiers: Atrial fibrillation type: chronic Qualified Code(s): I48.2 - Chronic atrial fibrillation (7) DVT (deep venous thrombosis) Qualifiers: DVT location: lower extremity Affected thrombotic vein of extremity: unspecified vein of extremity Chronicity: unspecified Laterality: right Qualified Code(s): I82.401 - Acute embolism and thrombosis of unspecified deep veins of right lower extremity
[2018-01-26] MEDS: Insulin DETEMIR 100 UNIT/ML X5UNITS SQ SCH (20:50)
[2018-01-27 04:41] LABS: BUN/Creatinine Ratio 25 (6-26); Blood Urea Nitrogen 27 mg/dL (8-23); Calcium 9.2 mg/dL (8.6-10.3); Carbon Dioxide 32 mEq/L (23-29); Chloride 98 mEq/L (98-107); Glucose 118 mg/dL (70-105); Magnesium 2.1 mg/dL (1.6-2.6); Osmolality,Calculated 290 (280-300); Phosphorous 3.3 mg/dL (2.7-4.5); Potassium 4.5 mEq/L (3.5-5.1); Sodium 137 mEq/L (136-145); eGFR For Non-African Americans > 60 (> 60)
[2018-01-27] MEDS: Apixaban 5 MG TABLET PO SCH (08:37)
[2018-01-27] MEDS: Gabapentin 400 MG CAPSULE PO SCH ×2 (08:37→15:17)
[2018-01-27] MEDS: Furosemide 40 MG/4 ML VIAL IVP SCH (08:38)
[2018-01-27] MEDS: Insulin LISPRO 300 UNITS/3 ML VIAL SQ SCH ×2 (09:29→12:44)
[2018-01-27 11:11] VITALS: BP 102/69
--- NOTE | 2018-01-27 13:30 | Event Note ---
Date of Encounter: 01/27/18 Time of Encounter: 13:25 Patient seen and evaluated at bedside, reports that his breathing is "OK" denies shortness of breath or chest pain. Denies abdominal fullness or distention. Physical exam: General: Alert and orientedx4. No acute distress Cardiovascular: Irregularly, irregular, Normal S1 & S2, no rubs, murmurs or gallops. Lungs: Clear to Auscultation b/l, no wheezes, crackles or rales. Abdomen: Distended, Soft, non-tender, no rigidity. Normal active bowel sounds in all 4 quadrants. Extremities: 3+ pitting edema in the lower extr b/l. b/l erythema in the lower extr. Neurological: Normal cognition. CN II-XII intact. Rest of the physical exam is non contributory Assessment and Plan 1. HFrEF 2. T2DM 3. CAD 4. Cellulitis of the lower extr 5. Non-alcoholic liver cirrhosis 6. A. trial fibrillation 7. Left lower extr DVT Plan: Patient to be discharged to SNF Continue PO diuresis and home medications Discharge summary dictated on 01/24/18 Patient has completed antibiotics treatment for cellulitis.
--- NOTE | 2018-01-27 13:35 | Physician Discharge Referral ---
ExtendedCare Referral Info Transfer To: SNF - Diagnosis (1) Chronic congestive heart failure Priority: Primary Status: Chronic (2) Coronary artery disease Priority: Secondary Status: Chronic (3) Diabetes mellitus Priority: Secondary Status: Chronic (4) Non-alcoholic cirrhosis Priority: Secondary Status: Chronic (5) Bilateral lower leg cellulitis Priority: Secondary Status: Acute (6) Atrial fibrillation Priority: Secondary Status: Chronic (7) DVT (deep venous thrombosis) Priority: Secondary Status: Acute Prognosis: Fair Aware of Diagnosis: Patient Aware of Prognosis: Patient - Transfer Medications Prescriptions: Amoxicillin/Clavulanate [Augmentin] 875 mg PO BIDWM 5 Days #10 tablet Apixaban [Eliquis] 5 mg PO BID 30 Days #60 tablet Home Medications: Aspirin [Lo-Dose Aspirin EC] 81 mg PO DAILY 12/03/15 [History] Carvedilol 18.75 mg PO BID 12/03/15 [History] Furosemide [Lasix] 40 mg PO DAILY 12/03/15 [History] Albuterol Sulfate [Albuterol Inhaler] 2 puff IH Q4HR PRN #1 hfa.aer.ad 11/25/17 [Rx] Atorvastatin Calcium [Lipitor] 80 mg PO HS 12/18/17 [History] Cyanocobalamin (B-12) [Vitamin B12] 1,000 mcg PO DAILY 12/18/17 [History] [place]-3/Dha/Epa/Fish Oil [Fish Oil 1,000 mg Softgel] 1 cap PO DAILY 12/18/17 [ History] Gabapentin [Neurontin] 400 mg PO TID 01/18/18 [History] Levocetirizine Dihydrochloride [Allergy Relief] 5 mg PO DAILY 01/18/18 [History] Spironolactone [Aldactone] 100 mg PO DAILY 01/18/18 [History] Amoxicillin/Clavulanate [Augmentin] 875 mg PO BIDWM 5 Days #10 tablet 01/24/18 [ Rx] Apixaban [Eliquis] 5 mg PO BID 30 Days #60 tablet 01/24/18 [Rx] Allergies/Adverse Reactions: 3 Allergy/AdvReac Type Severity Reaction Status Date / Time No Known Allergies Allergy Verified 07/15/17 14:11 - Respiratory Orders Oxygen / L per min, None Smoking Cessation: Smoking cessation has been advised. For more information, call the [place] Tobacco Quit Line at 4-492-AIKK-NOW. - Advance Directives Code Status: Full Code - Mobility Orders Ambulate - Rehabiliation Orders Rehab Potential: Fair - Diet Orders Regular CERTIFICATION: I certify that the transfer of the above named patient to an Extended Care Facility is necessary for the continuing treatment of the diagnosis listed. The above information is true and accurate reflection of patient's current condition. Confidential - Redisclosure prohibited without a patient's written consent.
== END 2018-01-27 15:42 | DRG 291 ==
LOC: 2NNU 14:38 → SUATTDRO 14:38
PROVIDERS: ADMIT Internal Medicine; ATTEND Internal Medicine

== ENCOUNTER 2018-02-07 15:55 | Inpatient (IN) ==
[2018-02-07] MEDS ORDERED: Naloxone 0.4 MG/ML INJ IVP PRN (20:45)
[2018-02-07] MEDS ORDERED: D5% in Water 1,000 ML IVC PRN (20:49)
[2018-02-07] MEDS ORDERED: Dextrose Gel 15 GM/37.5 ML TUBE PO PRN ×2 (20:49)
[2018-02-07] MEDS ORDERED: *HR* Dextrose 50 % in Water (Syg) 50 ML SYRINGE IVP PRN (20:49)
--- NOTE | 2018-02-07 21:06 | Internal Med History&Physical ---
Addendum entered and electronically signed by Oswald Soto MD 02/08/18 20:23: I saw and evaluated the patient. I reviewed the residents note, performed my own physical examination and agree with findings and plan as documented in the residents note. Patient seen and examined on 02/08/18. GI bleed with patient on eliquis. Will monitor CBC closely. Patient also typed and screened and 2 units of PRBCs were ordered. Patient will require GI consultation. Patient also on home CPAP at time of examination. Patient tachycardic this morning, but increased when CPAP removed for patient to be cleaned. Original Note: Date of Encounter: 02/07/18 Time of Encounter: 21:00 Internal Medicine - H&P: HPI Chief complaint: black stools Admitted From: Long-term Nursing Facility Plans for Post Hospital Care: [facility] History of present illness: Mr. Velásquez is a 67 year old male who presented to the [facility] ED from [facility] for complaints of one black, tarry bowel movement this afternoon. Patient's PMH includes CAD, ND, CHF, Afib, HTN, cirrhosis, HLD, and DM. On further questioning patient reports having black stools 2 weeks, but today his BM was very loose and he was unable to make it to the bathroom in time. Admits to associated diaphoresis, nausea, vomiting, and RUQ abdominal pain he states is from his liver. He denies associated hematochezia, chest pain or pressure, increased dyspnea from baseline, or increased MENDOZA from baseline, fevers, chills, or difficulty urinating--he doesn't know if there was any blood present in his vomit because he vomitted into a trash can. Does not take iron supplements or use pepto-bismol, per patient. Patient was placed on eliquis for a chronic superficial vein thrombus diagnosed on xxx. Patient has never had an EGD, colonoscopy, or blood transfusion. Additional complaints of BLE edema x2 months despite taking furosemide and a burning, needle-like BLE pain he states is neuropathy from diabetes. Most recent echocardiogram (01/17/18) showed LVEF 20% with severe, global LV systolic dysfunction. ED course: On arrival to [facility] ED, the patient was found to be hemodynamically stable with 100% O2 saturation on room air. Hgb was 9.4previous Hgb 14.1, which was 9 days ago. Presenting INR of 3. Troponin negative. CXR showed stable cardiomegaly and was negative for lung infiltrate, consolidation, or pleural effusion. Past Med Surg Social Fam HX - Past Medical History Medical history: atrial fibrillation, cardiomyopathy, cirrhosis, CHF, coronary artery disease, DVT, diabetes, hyperlipidemia, hypertension, myocardial infarction Additional medical history: DVT in right LE Psychiatric history: no psych history, depression - Past Surgical History Surgical History: angioplasty/stent, coronary bypass (CABG), pacemaker/AICD Additional surgical history: CARDIAC STENTS X 3 (2000), CABG w/ 4 bypasses (2006), demand pacemaker 09/2014 - Social History Smoking Status: Former smoker Packs per day: 1 Smokeless Tobacco Status: No Alcohol use: rarely Drug use: none - Family History Father Living Status: Hx Family Cardiac Disorders: Yes (Cardiomyopathy) Hx Family Cancer: No Mother Living Status: Hx Family Neurologic Disorders: Yes (CVA) Sister Living Status: Still Living Hx Family Cardiac Disorders: Yes (CABG X 4) Internal Medicine - H&P: Meds Carvedilol 18.75 mg PO BID 12/03/15 [History] Albuterol Sulfate [Albuterol Inhaler] 2 puff IH Q4HR PRN #1 hfa.aer.ad 11/25/17 [Rx] Atorvastatin Calcium [Lipitor] 80 mg PO HS 12/18/17 [History] Cyanocobalamin (B-12) [Vitamin B12] 1,000 mcg PO DAILY 12/18/17 [History] Gabapentin [Neurontin] 400 mg PO TID 01/18/18 [History] Spironolactone [Aldactone] 100 mg PO DAILY 01/18/18 [History] Apixaban [Eliquis] 5 mg PO BID 30 Days #60 tablet 01/24/18 [Rx] Ergocalciferol (VITAMIN D2) [Vitamin D2] 4,000 unit PO DAILY 02/07/18 [History] Furosemide [Lasix] 40 mg PO DAILY 02/07/18 [History] HYDROcodone/Acet 5/325 mg [[place] 5-325 mg] 1 tab PO Q6H PRN 02/07/18 [History] Lactulose 20 gm PO BID 02/07/18 [History] Magnesium Hydroxide [Milk of Magnesia] 30 ml PO DAILY PRN 02/07/18 [History] [place]-3/Dha/Epa/Fish Oil [Fish Oil 1,000 mg Softgel] 1 each PO DAILY 02/07/18 [History] Ondansetron HCl [Zofran] 4 mg PO Q8HR PRN 02/07/18 [History] Allergy/AdvReac Type Severity Reaction Status Date / Time No Known Allergies Allergy Verified 01/30/18 14:32 All Systems PM: A 10-system review of systems was performed and is negative for pertinent findings except as documented above in the HPI. - Constitutional Constitutional: as per HPI - Cardiovascular Cardiovascular ROS IM: as per HPI - Respiratory Respiratory: as per HPI, other (CPAP at night) - Gastrointestinal Gastrointestinal: as per HPI - Genitourinary Genitourinary ROS male: as per HPI - Musculoskeletal Musculoskeletal ROS IM: as per HPI, back pain (chronic) - Integumentary Integumentary IM: skin ulcer (LLE, sees wound care) - Neurological Neurological ROS: as per HPI - Hematologic/Lymphatic Hematologic/Lymphatic: as per HPI - Constitutional Vitals: Temp Pulse Resp BP Pulse Ox 98.5 F 99 16 99/67 93 02/07/18 18:02 02/07/18 18:02 02/07/18 18:02 02/07/18 18:02 02/07/18 18:02 Exam: General: NAD, chronically ill-appearing Head: head normocephalic and atraumatic, Eyes: EOMI, PERRL, mild scleral icterus Neck: Supple, no lymphadenopathy Cardio: Heart sounds masked by patient's respirations, irregularly irregular rhythm and tachycardia on telemetry, +S1/S2, 2+/4 radial pulses bilaterally Pulm: Tachypnea without respiratory distress, CTAB; no wheezing, rhonchi, rales Abdomen: distended but soft, slight tenderness on palpation, normal bowel sounds, fluid wave present, umbilical hernia (reducible) Extremities: BLE 3+ pitting edema, upper calves and behind knee tender to palpation bilaterally Neuro: AAOx3, no focal deficit, no speech deficit, mentation mentating well, CN II-XII grossly intact, moves extremities spontaneously MSK: no visible deformities, no joint swelling Skin: clean, dry, chronic LLE ulcer under dressing Psych: Appropriate mood and affect. Answers questions appropriately. Cooperative with exam Internal Med - H&P Results - Labs CBC & Chem 7: 02/08/18 10:41 02/08/18 10:41 - Assessment and plan (1) Anemia due to acute blood loss Current Visit: Yes Status: Acute Assessment and plan: Anemia d/t acute blood loss from suspected GI bleed, most likely upper GI Hgb today 9.4, Hgb was 14.1 previously (01/29/18) Recommend transfusing PRBCs for Hgb < 9 as he's a high-risk patient given his multiple comorbidities; GI recommendations appreciated Patient reported 2 weeks of black stools prior to presentation today and takes Eliquis for Afib INR elevation (3.0 today) most likely related to h/o cirrhosis and Eliquis use - Blood type and screen ordered - 2 units PRBCs to be transfused now - Hold Eliquis and other anticoagulants at this time - Start protonix gtt - Recommend EGD and possibly colonoscopy this admission - Recheck CBC after 2 units PRBCs transfused - Recheck PT/INR and PTT - NPO - Supplemental O2 by nasal cannula - GI consult placed - Continuous cardiac monitoring and pulse ox (2) GI bleeding Current Visit: Yes Status: Suspected Assessment and plan: FOBT positive for occult blood; suspect upper GI bleed Black, tarry stools 2 weeks while anticoagulated on Eliquis and aspirin Increased risk for GIB d/t chronic cirrhosis leading to variceal formation and decreased production of clotting factors GI recommended inpatient EGD on 12/18/17--declined by patient during that admission because he wanted to complete it as an outpatient - See assessment and plan above for additional details Qualifiers: GI bleed type/associated pathology: unspecified gastrointestinal hemorrhage type Qualified Code(s): K92.2 - Gastrointestinal hemorrhage, unspecified (3) Systolic heart failure Current Visit: Yes Status: Chronic Assessment and plan: Stable, most likely d/t ischemic cardiomyopathy Not in acute exacerbation based on clinical exam and imaging--lungs CTAB without crackles and CXR negative for pleural effusion Last echocardiogram 01/17/18 showed LVEF 20%--AICD in place Patient has multiple comorbidities (CAD, A. fib, cirrhosis, sleep apnea, etc.) that could be contributing to elevated BNP (441) - Hold diuretics overnight d/t borderline hypotension and GIB, reassess in the morning Qualifiers: Heart failure chronicity: chronic Qualified Code(s): I50.22 - Chronic systolic (congestive) heart failure (4) Coronary artery disease Current Visit: Yes Status: Chronic Assessment and plan: Takes atorvastatin 80 mg at home - Hold statin while NPO Qualifiers: Coronary Disease-Associated Artery/Lesion type: bypass graft [place] vs. 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 insulin use: wi thout traffic operations engineer use Diabetes mellitus complication status: with circulatory complication Diabetes mellitus complication detail: with other circulatory complications Qualified Code(s): E11.59 - Type 2 diabetes mellitus with other circulatory complications (6) Essential hypertension Current Visit: No Status: Chronic Assessment and plan: Hold anti-hypertensives for now--currently borderline hypotensive (7) Atrial fibrillation Current Visit: Yes Status: Chronic Assessment and plan: Takes Eliquis--hold for now d/t GI bleed Qualifiers: Atrial fibrillation type: chronic Qualified Code(s): I48.2 - Chronic atrial fibrillation (8) Non-alcoholic cirrhosis Current Visit: Yes Status: Chronic (9) DVT (deep venous thrombosis) Current Visit: Yes Status: Chronic Assessment and plan: Distal right superficial femoral vein thrombus, thought to be chronic in nature, diagnosed on 01/22/18 via LE venous duplex Qualifiers: DVT location: lower extremity Affected thrombotic vein of extremity: unspecified vein of extremity Chronicity: unspecified Laterality: right Qualified Code(s): I82.401 - Acute embolism and thrombosis of unspecified deep veins of right lower extremity - Time Spent With Patient Total time spent is greater than 50% in coordination of care (as documented) at patient's floor/unit and/or counseling patient: 25 - 35 minutes
[2018-02-07] MEDS ORDERED: Ondansetron 4 MG/2 ML VIAL IVP PRN (22:38)
[2018-02-08] MEDS: Insulin LISPRO 300 UNITS/3 ML VIAL SQ SCH ×4 (01:17→17:31)
[2018-02-08] MEDS: Pantoprazole 40 MG in 0.9 % Sodium Chloride Mini Bag 100 ML IVC SCH ×4 (01:17→19:23)
[2018-02-08] MEDS: OXYCODONE Oral CONC 10 MG/0.5 ML ORAL.SYG SL PRN ×3 (01:52→15:49)
[2018-02-08] MEDS ORDERED: 0.9 % Sodium Chloride 250 ML ONE ×2 (02:11→05:52)
[2018-02-08 12:04] LABS: Basophils # 0.1 K/mcL (0.0-0.2); Basophils % 1.3 %; Eosinophils # 0.2 K/mcL (0.0-0.6); Eosinophils % 4.1 %; Hematocrit 30.2 % (37.5-50.1); Hemoglobin 9.7 g/dL (12.9-16.9); Immature Granulocytes % 0.4 % (0-4); Lymphocytes # 1.3 K/mcL (0.6-4.6); Lymphocytes % 24.2 %; Mean Corpuscular HGB Conc 32.1 g/dL (31.6-35.5); Mean Corpuscular Hemoglobin 25.3 pg (28.0-33.3); Mean Corpuscular Volume 78.9 fL (83.0-100.0); Mean Platelet Volume 10.8 fL (9.4-12.4); Monocytes # 0.7 K/mcL (0.0-1.3); Monocytes % 13.4 %; Neutrophils # 3.1 K/mcL (1.6-8.9); Platelet Count 276 K/mcL (140-400); Red Blood Count 3.83 M/mcL (4.19-5.50); Red Cell Distribution Width 19.1 % (11.5-14.5); Segmented Neutrophils % 56.6 %
[2018-02-08 12:11] LABS: INR 1.8; Prothrombin Time 19.8 Seconds (9.4-12.1)
[2018-02-08 12:13] LABS: Activated Partial Thrombo Time 32.8 Seconds (26.0-36.0)
[2018-02-08 12:23] LABS: Alanine Aminotransferase 16 Units/L (7-52); Albumin 3.5 g/dL (3.5-5.7); Albumin/Globulin Ratio 1.3 (1.1-2.2); Alkaline Phosphatase 134 Units/L (34-104); Aspartate Amino Transferase 26 Units/L (13-39); BUN/Creatinine Ratio 51 (6-26); Bilirubin,Total 1.9 mg/dL (0.3-1.0); Blood Urea Nitrogen 44 mg/dL (8-23); Calcium 8.8 mg/dL (8.6-10.3); Carbon Dioxide 26 mEq/L (23-29); Chloride 102 mEq/L (98-107); Globulin 2.6 g/dL (2.4-3.5); Glucose 135 mg/dL (70-105); Osmolality,Calculated 293 (280-300); Potassium 4.4 mEq/L (3.5-5.1); Sodium 135 mEq/L (136-145); Total Protein 6.1 g/dL (6.4-8.9); eGFR For Non-African Americans > 60 (> 60)
[2018-02-08] MEDS ORDERED: Polyethylene Glycol 3350 255 GM POWDER PO ONE (16:15)
[2018-02-08 17:01] LABS: Basophils # 0.1 K/mcL (0.0-0.2); Basophils % 1.2 %; Eosinophils # 0.2 K/mcL (0.0-0.6); Eosinophils % 4.6 %; Hematocrit 30.4 % (37.5-50.1); Hemoglobin 9.8 g/dL (12.9-16.9); Immature Granulocytes % 0.6 % (0-4); Lymphocytes # 1.1 K/mcL (0.6-4.6); Lymphocytes % 22.6 %; Mean Corpuscular HGB Conc 32.2 g/dL (31.6-35.5); Mean Corpuscular Hemoglobin 25.4 pg (28.0-33.3); Mean Corpuscular Volume 78.8 fL (83.0-100.0); Mean Platelet Volume 10.1 fL (9.4-12.4); Monocytes # 0.7 K/mcL (0.0-1.3); Monocytes % 13.6 %; Neutrophils # 2.9 K/mcL (1.6-8.9); Platelet Count 276 K/mcL (140-400); Red Blood Count 3.86 M/mcL (4.19-5.50); Red Cell Distribution Width 19.1 % (11.5-14.5); Segmented Neutrophils % 57.4 %
--- NOTE | 2018-02-08 20:24 | General Surgery Consult Note ---
Date of Encounter: 02/08/18 Time of Encounter: 20:24 Assessment and Plan (1) GI bleeding Current Visit: Yes Status: Suspected 67M with multiple comorbidities with LGIB; HDS; CLD bowel prep NPO at midnight IV at midnight plan for EGD, colonoscopy in AM Qualifiers: GI bleed type/associated pathology: unspecified gastrointestinal hemorrhage type Qualified Code(s): K92.2 - Gastrointestinal hemorrhage, unspecified History of Present Illness Consult date: 02/08/18 Reason for consult: other (lower GI bleeding) History of present illness: 67M h/p CAD s/p angioplasty, cardiac stent x 3, CABG x 4, CHF complicated by cirrhosis 2/2 CHF who presents with 2 week history of dark tarry stools. The patient states that he has had a similar presentation in the remote past, but attributed it to his diet and being constipated. This episode is different because it has been ongoing for 2 weeks. No symptoms to suggest instability (ie: syncope, chest pain, etc). The patient states that he has never had an EGD nor a colonoscopy. I was consulted for surgical evaluation and management. Past Med Surg Social Fam HX - Past Medical History Medical history: atrial fibrillation, cardiomyopathy, cirrhosis, CHF, coronary artery disease, DVT, diabetes, hyperlipidemia, hypertension, myocardial infarction Additional medical history: DVT in right LE Psychiatric history: no psych history, depression - Past Surgical History Surgical History: angioplasty/stent, coronary bypass (CABG), pacemaker/AICD Additional surgical history: CARDIAC STENTS X 3 (2000), CABG w/ 4 bypasses (2006), demand pacemaker 09/2014 - Social History Smoking Status: Former smoker Packs per day: 1 Smokeless Tobacco Status: No Alcohol use: rarely Drug use: none - Family History Father Living Status: Hx Family Cardiac Disorders: Yes (Cardiomyopathy) Hx Family Cancer: No Mother Living Status: Hx Family Neurologic Disorders: Yes (CVA) Sister Living Status: Still Living Hx Family Cardiac Disorders: Yes (CABG X 4) Medications and Allergies Carvedilol 18.75 mg PO BID 12/03/15 [History] Albuterol Sulfate [Albuterol Inhaler] 2 puff IH Q4HR PRN #1 hfa.aer.ad 11/25/17 [Rx] Atorvastatin Calcium [Lipitor] 80 mg PO HS 12/18/17 [History] Gabapentin [Neurontin] 400 mg PO TID 01/18/18 [History] Spironolactone [Aldactone] 100 mg PO DAILY 01/18/18 [History] Apixaban [Eliquis] 5 mg PO BID 30 Days #60 tablet 01/24/18 [Rx] Furosemide [Lasix] 40 mg PO DAILY 02/07/18 [History] HYDROcodone/Acet 5/325 mg [[place] 5-325 mg] 1 tab PO Q6H PRN 02/07/18 [History] Lactulose 30 ml PO BID 02/07/18 [History] Magnesium Hydroxide [Milk of Magnesia] 30 ml PO DAILY PRN 02/07/18 [History] Ondansetron HCl [Zofran] 4 mg PO Q8HR PRN 02/07/18 [History] Acetaminophen [Tylenol Arthritis] 650 mg PO Q6H PRN 02/08/18 [History] Aspirin [Adult Aspirin Regimen] 81 mg PO DAILY 02/08/18 [History] Cetirizine HCl [All Day Allergy] 10 mg PO DAILY PRN 02/08/18 [History] Cholecalciferol (D-3) [Vitamin D] 2,000 unit PO DAILY 02/08/18 [History] Allergy/AdvReac Type Severity Reaction Status Date / Time empagliflozin AdvReac See Verified 02/08/18 17:02 [From Jardiance] Comments Review of Systems All systems PM: 12 point ROS negative besides HPI findings General Surgery Exam Initial Vital Signs Pulse Ox 97 02/07/18 17:43 - General physical appearance no distress - Eyes normal ocular movement - ENT normocephalic - Neck no lymphadectomy - Respiratory normal expansion, normal respiratory effort - Cardiovascular Cardiovascular exam: Present: RRR - Abdomen Abdomen general surgery: Present: soft, non tender - Integumentary Integumentary general surgery: Present: warm and dry - Neurologic Present: CN 2-12 grossly intact - Musculoskeletal Present: normal posture - Psychiatric Psychiatric general surgery: Present: A&Ox3 Exam Initial Vital Signs Pulse Ox 97 02/07/18 17:43 Results - Labs 02/08/18 16:50 02/08/18 10:41 Abnormal lab results RBC 3.86 M/mcL (4.19-5.50) L 02/08/18 16:50 Hgb 9.8 g/dL (12.9-16.9) L 02/08/18 16:50 Hct 30.4 % (37.5-50.1) L 02/08/18 16:50 MCV 78.8 fL (83.0-100.0) L 02/08/18 16:50 MCH 25.4 pg (28.0-33.3) L 02/08/18 16:50 RDW 19.1 % (11.5-14.5) H 02/08/18 16:50 PT 19.8 Seconds (9.4-12.1) H 02/08/18 10:41 Sodium 135 mEq/L (136-145) L 02/08/18 10:41 BUN 44 mg/dL (8-23) H 02/08/18 10:41 BUN/Creatinine Ratio 51 (6-26) H 02/08/18 10:41 Glucose 135 mg/dL (70-105) H 02/08/18 10:41 POC Glucose 135 mg/dL (70-99) H 02/08/18 16:15 Total Bilirubin 1.9 mg/dL (0.3-1.0) H 02/08/18 10:41 Alkaline Phosphatase 134 Units/L (34-104) H 02/08/18 10:41 Serum Total Protein 6.1 g/dL (6.4-8.9) L 02/08/18 10:41 Diabetes panel 02/08/18 Range/Units 10:41 Sodium 135 L (136-145) mEq/L Potassium 4.4 (3.5-5.1) mEq/L Chloride 102 (98-107) mEq/L Carbon Dioxide 26 (23-29) mEq/L BUN 44 H (8-23) mg/dL Creatinine 0.87 (0.70-1.30) mg/dL Glucose 135 H (70-105) mg/dL Calcium 8.8 (8.6-10.3) mg/dL AST 26 (13-39) Units/L ALT 16 (7-52) Units/L Alkaline Phosphatase 134 H (34-104) Units/L Albumin 3.5 (3.5-5.7) g/dL Calcium panel 02/08/18 Range/Units 10:41 Calcium 8.8 (8.6-10.3) mg/dL Albumin 3.5 (3.5-5.7) g/dL Pituitary panel 02/08/18 Range/Units 10:41 Sodium 135 L (136-145) mEq/L Potassium 4.4 (3.5-5.1) mEq/L Chloride 102 (98-107) mEq/L Carbon Dioxide 26 (23-29) mEq/L BUN 44 H (8-23) mg/dL Creatinine 0.87 (0.70-1.30) mg/dL Glucose 135 H (70-105) mg/dL Calcium 8.8 (8.6-10.3) mg/dL Adrenal panel 02/08/18 Range/Units 10:41 Sodium 135 L (136-145) mEq/L Potassium 4.4 (3.5-5.1) mEq/L Chloride 102 (98-107) mEq/L Carbon Dioxide 26 (23-29) mEq/L BUN 44 H (8-23) mg/dL Creatinine 0.87 (0.70-1.30) mg/dL Glucose 135 H (70-105) mg/dL Calcium 8.8 (8.6-10.3) mg/dL Total Bilirubin 1.9 H (0.3-1.0) mg/dL AST 26 (13-39) Units/L ALT 16 (7-52) Units/L Alkaline Phosphatase 134 H (34-104) Units/L Albumin 3.5 (3.5-5.7) g/dL All other labs normal. Consult Discharge Plan - Plan Referrals: NONE,PCP [Primary Care Provider] -
[2018-02-09] MEDS: Pantoprazole 40 MG in 0.9 % Sodium Chloride Mini Bag 100 ML IVC SCH ×5 (00:29→23:45)
[2018-02-09] MEDS: Insulin LISPRO 300 UNITS/3 ML VIAL SQ SCH ×4 (02:13→19:42)
[2018-02-09 04:03] LABS: Basophils # 0.1 K/mcL (0.0-0.2); Basophils % 1.2 %; Eosinophils # 0.4 K/mcL (0.0-0.6); Eosinophils % 5.6 %; Hematocrit 30.5 % (37.5-50.1); Hemoglobin 9.7 g/dL (12.9-16.9); Immature Granulocytes % 0.3 % (0-4); Lymphocytes # 1.5 K/mcL (0.6-4.6); Lymphocytes % 22.6 %; Mean Corpuscular HGB Conc 31.8 g/dL (31.6-35.5); Mean Corpuscular Hemoglobin 25.3 pg (28.0-33.3); Mean Corpuscular Volume 79.4 fL (83.0-100.0); Mean Platelet Volume 10.7 fL (9.4-12.4); Monocytes # 0.9 K/mcL (0.0-1.3); Neutrophils # 3.7 K/mcL (1.6-8.9); Platelet Count 315 K/mcL (140-400); Red Blood Count 3.84 M/mcL (4.19-5.50); Red Cell Distribution Width 19.4 % (11.5-14.5); Segmented Neutrophils % 56.3 %
[2018-02-09 04:21] LABS: BUN/Creatinine Ratio 37 (6-26); Blood Urea Nitrogen 32 mg/dL (8-23); Calcium 9.3 mg/dL (8.6-10.3); Carbon Dioxide 25 mEq/L (23-29); Chloride 102 mEq/L (98-107); Glucose 158 mg/dL (70-105); Osmolality,Calculated 288 (280-300); Potassium 4.4 mEq/L (3.5-5.1); Sodium 134 mEq/L (136-145); eGFR For Non-African Americans > 60 (> 60)
[2018-02-09] MEDS ORDERED: *HR* Midazolam HCl 5 MG/5 ML VIAL IVP ONE (07:42)
[2018-02-09] MEDS ORDERED: *HR* FentaNYL (PF) 100 MCG/2 ML VIAL ONE (07:42)
[2018-02-09] MEDS ORDERED: *HR* Metoprolol 5 MG/5 ML VIAL IVP PRN (09:18)
[2018-02-09] MEDS ORDERED: Spironolactone 25 MG TABLET PO SCH (09:30)
[2018-02-09] MEDS: *HR* Metoprolol 5 MG/5 ML VIAL IVP SCH ×2 (10:40→20:45)
[2018-02-09] MEDS: Gabapentin 400 MG CAPSULE PO SCH ×3 (10:40→20:44)
[2018-02-09] MEDS: OXYCODONE Oral CONC 10 MG/0.5 ML ORAL.SYG SL PRN ×2 (10:54→20:44)
--- NOTE | 2018-02-09 11:17 | General Surgery Progress Note ---
Date of Encounter: 02/09/18 Time of Encounter: 11:14 - Assessment and Plan (1) GI bleeding Current Visit: Yes Status: Suspected 67M with LGIB; planned for EGD, colonoscopy, but patient in a fib with RVR, short of breath; with his multiple comorbidities, better judgement would be to have patient evaluated by cardiology with plans for procedures tomorrow after cardiac evaluation CLD, NPO at midnight finish asai prep awaiting cards eval rate control per primary/cardiology will plan for EGD, colonoscopy in AM Qualifiers: GI bleed type/associated pathology: unspecified gastrointestinal hemorrhage type Qualified Code(s): K92.2 - Gastrointestinal hemorrhage, unspecified Subjective Patient reports: shortness of breath Objective Vital Signs - Last 8 Hours Temp Pulse Resp BP Pulse Ox 02/09/18 09:54 97.2 F L 117 18 108/67 95 02/09/18 08:05 97.8 F 130 18 117/82 02/09/18 08:00 97.8 F 130 18 117/82 98 02/09/18 07:02 97.8 F 130 16 118/82 94 02/09/18 04:27 98.1 F 129 16 114/77 97 Intake and Output 02/08/18 02/09/18 02/09/18 23:59 07:59 15:59 Intake Total 100 / 100 200 / 200 Output Total 200 / 200 0 / 0 Balance -100 / -100 200 / 200 0 / 0 Intake: IV Fluids 100 / 100 200 / 200 Protonix 40 MG In 0.9 % Sodium 100 / 100 200 / 200 Chloride (Mini-Bag +) 100 ML @ 20 mls/hr IVC .Q5H [facility] Rx#: [id number] Oral 0 / 0 Output: Urine 200 / 200 0 / 0 Other: Meal NPO BREKAFAST Stool Size Large Small Stool Consistency liquid liquid Stool Characteristics Tarry Stool Color Brown Brown # Voids 1 Weight 105.2 kg Blood Glucose* 135 195 124 Patient Weight 02/09/18 23:59 Weight 105.2 kg - General physical appearance other (SOB; dyspnea; ) - Respiratory other (slight pauses between breaths) - Cardiovascular Cardiovascular exam: Present: irregular rhythm (a fib with RVR) - Abdomen Abdomen: Present: soft, non tender - Neurologic CN 2-12 grossly intact - Musculoskeletal normal posture - Labs 02/09/18 03:44 02/09/18 03:44 Diabetes panel 02/08/18 02/09/18 Range/Units 10:41 03:44 Sodium 135 L 134 L (136-145) mEq/L Potassium 4.4 4.4 (3.5-5.1) mEq/L Chloride 102 102 (98-107) mEq/L Carbon Dioxide 26 25 (23-29) mEq/L BUN 44 H 32 H (8-23) mg/dL Creatinine 0.87 0.87 (0.70-1.30) mg/dL Glucose 135 H 158 H (70-105) mg/dL Calcium 8.8 9.3 (8.6-10.3) mg/dL AST 26 (13-39) Units/L ALT 16 (7-52) Units/L Alkaline Phosphatase 134 H (34-104) Units/L Albumin 3.5 (3.5-5.7) g/dL Calcium panel 02/08/18 02/09/18 Range/Units 10:41 03:44 Calcium 8.8 9.3 (8.6-10.3) mg/dL Albumin 3.5 (3.5-5.7) g/dL Pituitary panel 02/08/18 02/09/18 Range/Units 10:41 03:44 Sodium 135 L 134 L (136-145) mEq/L Potassium 4.4 4.4 (3.5-5.1) mEq/L Chloride 102 102 (98-107) mEq/L Carbon Dioxide 26 25 (23-29) mEq/L BUN 44 H 32 H (8-23) mg/dL Creatinine 0.87 0.87 (0.70-1.30) mg/dL Glucose 135 H 158 H (70-105) mg/dL Calcium 8.8 9.3 (8.6-10.3) mg/dL Adrenal panel 02/08/18 02/09/18 Range/Units 10:41 03:44 Sodium 135 L 134 L (136-145) mEq/L Potassium 4.4 4.4 (3.5-5.1) mEq/L Chloride 102 102 (98-107) mEq/L Carbon Dioxide 26 25 (23-29) mEq/L BUN 44 H 32 H (8-23) mg/dL Creatinine 0.87 0.87 (0.70-1.30) mg/dL Glucose 135 H 158 H (70-105) mg/dL Calcium 8.8 9.3 (8.6-10.3) mg/dL Total Bilirubin 1.9 H (0.3-1.0) mg/dL AST 26 (13-39) Units/L ALT 16 (7-52) Units/L Alkaline Phosphatase 134 H (34-104) Units/L Albumin 3.5 (3.5-5.7) g/dL - VTE Reasons for not Prescribing Prophylaxis: Medical contraindication Consult Discharge Plan - Plan Referrals: NONE,PCP [Primary Care Provider] -
--- NOTE | 2018-02-09 12:29 | Internal Med Progress Note ---
Hospitalist Progress Note - Encounter Date of Encounter: 02/09/18 Time of Encounter: 11:26 - Subjective Interval History: Patient seen and examined this morning. No acute overnight events. Could not get scopes due to afib with RVR. Currently without palpitation. Mild shortness of breath. Denies chest pain. - Exam Vitals: Temp Pulse Resp BP Pulse Ox 97.2 F L 117 18 108/67 95 02/09/18 09:54 02/09/18 09:54 02/09/18 09:54 02/09/18 09:54 02/09/18 09:54 Exam: General: NAD, In no distress Neck: Supple, no lymphadenopathy Cardio: Tachycardic, irregular rhythm, +S1/S2, 2+/4 radial pulses bilaterally Pulm: CTAB; no wheezing, rhonchi, rales Abdomen: soft, non tender, normal bowel sounds, umbilical hernia Extremities: 2+ pitting edema bilaterally, Neuro: AAOx3, no focal deficit, no speech deficit, mentation mentating well, CN II-XII grossly intact, moves extremities spontaneously Skin: clean, dry, chronic LLE ulcer under dressing. chronic stasis dermatitis changes present. Psych: Appropriate mood and affect. Answers questions appropriately. 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 Stable Hb at 9.7 - home eliquis held - INR at 3.0 most likely related to h/o cirrhosis and Eliquis use - c/w protonix gtt - EGD and colonoscopy held as pt in Afib with RVR. Likely b/c did not get home med. EKG without ischemic changes, unchanged from past. 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 Atrial fibrillation - Home Eliquis held - Started on clears with home coreg. Will start cardizem drip and prn IV lopressor - Cadiology consulte Systolic heart failure - likely d/t ischemic cardiomyopathy - Last echocardiogram 01/17/18 showed LVEF 20%--AICD in place - diuretics held d/t borderline hypotension and GIB - atorvastatin held Diabetes mellitus - SSI and Accu-Cheks Q6H Essential hypertension - Anti-hypertensives held b/c of blood pressure - Will start cardizem DVT - Distal right superficial femoral vein thrombus, thought to be chronic in nature, diagnosed on 01/22/18 via LE venous duplex - Time Spent with Patient Total time spent is greater than 50% in coordination of care (as documented) at patient's floor/unit and/or counseling patient: Internal Medicine: Result - Labs CBC & Chem 7: 02/09/18 03:44 02/09/18 03:44 Labs: Short CBC 02/08/18 02/09/18 Range/Units 16:50 03:44 WBC 5.0 6.6 (4.3-11.1) K/mcL Hgb 9.8 L 9.7 L (12.9-16.9) g/dL Hct 30.4 L 30.5 L (37.5-50.1) % Plt Count 276 315 (140-400) K/mcL Neutrophils # 2.9 3.7 (1.6-8.9) K/mcL BMP 02/09/18 03:44 Sodium 134 L Potassium 4.4 Chloride 102 Carbon Dioxide 25 BUN 32 H Creatinine 0.87 Glucose 158 H Calcium 9.3 - ABG Interpretation ABG results: PT/INR, D-dimer PT 19.8 Seconds (9.4-12.1) H 02/08/18 10:41 - VTE Reasons for not Prescribing Prophylaxis: Medical contraindication Consult Discharge Plan - Plan Referrals: NONE,PCP [Primary Care Provider] - (1) Coronary artery disease Qualifiers: Coronary Disease-Associated Artery/Lesion type: bypass graft [place] vs. transplanted heart: [place] heart Associated angina: without angina Qualified Code(s): I25.810 - Atherosclerosis of coronary artery bypass graft(s) without angina pectoris (2) Diabetes mellitus Qualifiers: Diabetes mellitus type: type 2 Diabetes mellitus technician terminal and repeater insulin use: without alf use Diabetes mellitus complication status: with circulatory complication Diabetes mellitus complication detail: with other circulatory complications Qualified Code(s): E11.59 - Type 2 diabetes mellitus with other circulatory complications (5) Atrial fibrillation Qualifiers: Atrial fibrillation type: chronic Qualified Code(s): I48.2 - Chronic atrial fibrillation (6) DVT (deep venous thrombosis) Qualifiers: DVT location: lower extremity Affected thrombotic vein of extremity: unspecified vein of extremity Chronicity: unspecified Laterality: right Qualified Code(s): I82.401 - Acute embolism and thrombosis of unspecified deep veins of right lower extremity (8) Systolic heart failure Qualifiers: Heart failure chronicity: chronic Qualified Code(s): I50.22 - Chronic systoli c (congestive) heart failure (9) GI bleeding Qualifiers: GI bleed type/associated pathology: unspecified gastrointestinal hemorrhage type Qualified Code(s): K92.2 - Gastrointestinal hemorrhage, unspecified
[2018-02-10] MEDS: Insulin LISPRO 300 UNITS/3 ML VIAL SQ SCH ×6 (00:42→20:41)
[2018-02-10] MEDS: Pantoprazole 40 MG in 0.9 % Sodium Chloride Mini Bag 100 ML IVC SCH ×2 (04:18→12:10)
[2018-02-10 05:03] LABS: Basophils # 0.1 K/mcL (0.0-0.2); Eosinophils # 0.2 K/mcL (0.0-0.6); Eosinophils % 3.3 %; Hematocrit 29.7 % (37.5-50.1); Hemoglobin 9.1 g/dL (12.9-16.9); Immature Granulocytes % 0.6 % (0-4); Lymphocytes # 1.6 K/mcL (0.6-4.6); Lymphocytes % 23.1 %; Mean Corpuscular HGB Conc 30.6 g/dL (31.6-35.5); Mean Corpuscular Volume 81.6 fL (83.0-100.0); Mean Platelet Volume 10.7 fL (9.4-12.4); Monocytes # 1.2 K/mcL (0.0-1.3); Monocytes % 17.6 %; Neutrophils # 3.7 K/mcL (1.6-8.9); Platelet Count 348 K/mcL (140-400); Red Blood Count 3.64 M/mcL (4.19-5.50); Red Cell Distribution Width 19.3 % (11.5-14.5); Segmented Neutrophils % 54.4 %
[2018-02-10] MEDS ORDERED: Lidocaine -MPF 2% 2 ML VIAL ONE (07:15)
[2018-02-10] MEDS ORDERED: Propofol 500 MG/50 ML INFUS..BTL ONE (07:15)
[2018-02-10] MEDS ORDERED: *HR* Propofol 200 MG/20 ML VIAL IVP ONE (07:15)
[2018-02-10] MEDS ORDERED: *HR* Etomidate 40 MG/20 ML VIAL IVP ONE (07:41)
[2018-02-10] MEDS: OXYCODONE Oral CONC 10 MG/0.5 ML ORAL.SYG SL PRN (08:05)
[2018-02-10] MEDS: Gabapentin 400 MG CAPSULE PO SCH ×3 (08:07→20:44)
[2018-02-10] MEDS ORDERED: *HR* PHENYLEPHRINE 1,000 MCG/10 ML SYRINGE IVP ONE (08:08)
[2018-02-10] MEDS ORDERED: Simethicone 40 MG/0.6 ML MLS IR ONE (08:13)
[2018-02-10] MEDS ORDERED: Tetracaine/Benzocaine/Butamben 1 SPRAY AEROSOL MM ONE (08:13)
--- NOTE | 2018-02-10 08:15 | Anesthesia Evaluation PreOp ---
Date of Encounter: 02/10/18 Time of Encounter: 08:13 - Past History Planned Operation: EGD/Colonoscopy Cardiac History: [place] (remote), CHF, HTN, Hyperlipidemia, Arrhythmia (a-fib with RVR), Cardiac Surgery (4 vessel 2006), Cardiac Stent (x3 2000), Pacemaker/ICD (demand pacer 2014), Other (CAD, cardiomyopathy(ischemic)) Pulmonary History: Former smoker WRAPAROUND FACILITATOR History: Denies Any Significant HX Other Medical History: Diabetes Type II Anesthesia History: No Prior Anesthetic Complications, Past Anesthesia (CABG, stents) Alcohol Use: rarely Drug use: none Medications and Allergies Carvedilol 18.75 mg PO BID 12/03/15 [History] Albuterol Sulfate [Albuterol Inhaler] 2 puff IH Q4HR PRN #1 hfa.aer.ad 11/25/17 [Rx] Atorvastatin Calcium [Lipitor] 80 mg PO HS 12/18/17 [History] Gabapentin [Neurontin] 400 mg PO TID 01/18/18 [History] Spironolactone [Aldactone] 100 mg PO DAILY 01/18/18 [History] Apixaban [Eliquis] 5 mg PO BID 30 Days #60 tablet 01/24/18 [Rx] Furosemide [Lasix] 40 mg PO DAILY 02/07/18 [History] HYDROcodone/Acet 5/325 mg [[place] 5-325 mg] 1 tab PO Q6H PRN 02/07/18 [History] Lactulose 30 ml PO BID 02/07/18 [History] Magnesium Hydroxide [Milk of Magnesia] 30 ml PO DAILY PRN 02/07/18 [History] Ondansetron HCl [Zofran] 4 mg PO Q8HR PRN 02/07/18 [History] Acetaminophen [Tylenol Arthritis] 650 mg PO Q6H PRN 02/08/18 [History] Aspirin [Adult Aspirin Regimen] 81 mg PO DAILY 02/08/18 [History] Cetirizine HCl [All Day Allergy] 10 mg PO DAILY PRN 02/08/18 [History] Cholecalciferol (D-3) [Vitamin D] 2,000 unit PO DAILY 02/08/18 [History] Allergy/AdvReac Type Severity Reaction Status Date / Time empagliflozin AdvReac See Verified 02/08/18 17:02 [From Jardiance] Comments - Meds/Allergy Pre-op Review Medications Reviewed: Yes Allergies Reviewed: Yes Beta Blockers on Current Med List: Yes If Beta Blockers taken, Date/Time (Last Dose taken): today 0800 Anesthesia Results - Labs 02/10/18 04:19 02/09/18 03:44 - Imaging EKG: report reviewed (ATRIAL FIBRILLATION WITH RAPID VENTRICULAR RESPONSE SEPTAL MYOCARDIAL INFARCTION, PROBABLY OLD) Additional studies: echo 01-17-18: Impressions: LVEF 20%. Severe global left ventricular systolic dysfunction. Mildly dilated right ventricle. Moderate right ventricular hypokinesis. Mildly dilated left atrium and right atrium. Mild tricuspid regurgitation. Unable to estimate pulmonary artery pressure due to lack of TR jet and IVC not visualized. Anesthesia Exam Selected Entries 02/10/18 07:22 Temperature 97.7 F Pulse Rate 82 Respiratory Rate 16 Blood Pressure 94/63 O2 Sat by Pulse Oximetry 98 Oxygen Delivery Method BiPAP Weight: 105kg - HEENT Pupil (Motor): EOMI Mallampati: II Teeth: Missing Oral Opening: Greater than 3 - WRAPAROUND FACILITATOR LOC: Oriented WRAPAROUND FACILITATOR Motor: Normal RUE, Normal LUE, Normal RLE, Normal LLE, Normal Face WRAPAROUND FACILITATOR Sensory: Normal: RUE, LUE, RLE, LLE, Face - Cardiac Rhythm: Irregular (distant sounds) Murmur: None - Pulmonary Breath Sounds: bilateral Clear Respiratory Effort: Symmetrical Anesthesia Assess/Plan ASA Score: 4 (multiple cardiac issues, anemia) Modified Mcclure Scale for Level of Consciousness: Cooperative, oriented, and tranquil Anesthetic Plan: General Monitoring Plan: Standard Monitors Recovery Plan: PACU (agrees to GA)
[2018-02-10] MEDS ORDERED: EPHEDrine 50 MG/ML VIAL ONE (08:16)
--- NOTE | 2018-02-10 08:21 | Pre-Sedation Evaluation ---
Pre-sedation evaluation - Pre-sedation checklist Date of procedure: 02/09/18 Procedure: COLONOSCOPY Recent Vitals: Last Vital Signs Temp 97.7 F 02/10/18 07:22 Pulse 82 02/10/18 07:22 Resp 16 02/10/18 07:22 BP 94/63 02/10/18 07:22 Pulse Ox 98 02/10/18 07:22 H&P (including ROS) documented in medical record: Yes Previous reaction to sedatives/anesthetics: No Dentition: No loose teeth or bridges ASA Classification *see protocol: CLASS III-Severe systemic disease Plan of Care: Pt appropriate candidate for procedure/moderate/conscious sedation, Risks/benefits of procedure/sedation discussed w/ patient/family
[2018-02-10] MEDS ORDERED: 0.9 % Sodium Chloride 500 ML IVC ONE (10:29)
--- NOTE | 2018-02-10 10:47 | Cardiology Consult Note ---
Addendum entered and electronically signed by Rickey Traore CNP 02/10/18 11:51: Discussed with Dr. Riojas. Given hypotension, will switch Coreg to Toprol XL 25mg daily and uptitrate as necessary. Original Note: <Rickey Traore - Last Filed: 02/10/18 10:58> Date of Encounter: 02/10/18 Time of Encounter: 10:47 Assessment and Plan (1) Atrial fibrillation Current Visit: Yes Status: Chronic Known A-Fib. Home meds include Coreg 18.75mg BID. Was anticoagulated on Eliquis, but presented with GI bleeding and since held. Consider resuming as outpt once okay with GI given high CVA risk--[id number] (Age, HTN, CAD, CHF, DM). Recommend at least 81mg daily ASA if okay with GI. PO meds were held and pt went into A-Fib RVR. BB resumed, now rate controlled, but hypotensive. Will decrease Coreg to 12.5mg BID. Qualifiers: Atrial fibrillation type: chronic Qualified Code(s): I48.2 - Chronic atrial fibrillation (2) Coronary artery disease Current Visit: Yes Status: Chronic Hx of CABG and PCI. Denies CP. Statin, BB. Recommend resuming 81mg ASA once okay with GI. Qualifiers: Coronary Disease-Associated Artery/Lesion type: bypass graft [place] vs. transplanted heart: [place] heart Associated angina: without angina Qualified Code(s): I25.810 - Atherosclerosis of coronary artery bypass graft(s) without angina pectoris (3) Systolic heart failure Current Visit: Yes Status: Chronic Chronic systolic CHF. Known EF 20%--ICD in place. Hx of dietary indiscretion. Currently near baseline, denies worsening dyspnea. Recommend resuming home Lasix and Aldactone once BP allows. Qualifiers: Heart failure chronicity: chronic Qualified Code(s): I50.22 - Chronic systolic (congestive) heart failure (4) Ischemic cardiomyopathy Current Visit: No Status: Chronic Known ICMP s/p ICD. EF 20%. Continue BB. Resume Aldactone once BP allows. Discussion w patient/family: The assessment and plan as outlined above was discussed with the patient and/or family members who expressed understanding and agreement. All questions were answered. Thank you for involving us in the care of your patient. Please call with any questions. I will discuss all the above with Dr. Riojas and make changes as necessary. History of Present Illness Consult date: 02/10/18 Consult reason: A-fib Chief complaint: dark, tarry stool History of present illness: Mr. 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 HGB baseline is usually >14, currently 9s range. Was on Eliquis. Meds were held, pt went into A-Fib RVR and cardiology consulted for further recs. At bedside pt is sleeping, difficult to arouse. Most info obtained from H&P. Pt denies CP or worsening dyspnea from his baseline. BB was resumed and pt is currently rate controlled. Underwent scopes this AM. Prior CV testing: TTE 01/17/18: LVEF 20%. Severe global left ventricular systolic dysfunction. Mildly dilated right ventricle. Moderate right ventricular hypokinesis. Mildly dilated left atrium and right atrium. Mild tricuspid regurgitation. Unable to estimate pulmonary artery pressure due to lack of TR jet and IVC not visualized. Past Med Surg Social Fam HX - Past Medical History Medical history: atrial fibrillation, cardiomyopathy, cirrhosis, CHF, coronary artery disease, DVT, diabetes, hyperlipidemia, hypertension, myocardial infarction Additional medical history: DVT in right LE Psychiatric history: no psych history, depression - Past Surgical History Surgical History: angioplasty/stent, coronary bypass (CABG), pacemaker/AICD Additional surgical history: CARDIAC STENTS X 3 (2000), CABG w/ 4 bypasses (2006), demand pacemaker 09/2014 - Social History Smoking Status: Former smoker Packs per day: 1 Smokeless Tobacco Status: No Alcohol use: rarely Drug use: none - Family History Father Living Status: Hx Family Cardiac Disorders: Yes (Cardiomyopathy) Hx Family Cancer: No Mother Living Status: Hx Family Neurologic Disorders: Yes (CVA) Sister Living Status: Still Living Hx Family Cardiac Disorders: Yes (CABG X 4) Medications and Allergies RX: Carvedilol 18.75 mg PO BID 08/13/16 [History] RX: Albuterol Sulfate [Albuterol Inhaler] 2 puff IH Q4HR PRN #1 hfa.aer.ad 11/25/17 [Rx] RX: Atorvastatin Calcium [Lipitor] 80 mg PO HS 12/18/17 [History] RX: Gabapentin [Neurontin] 400 mg PO TID 01/18/18 [History] RX: Spironolactone [Aldactone] 100 mg PO DAILY 01/18/18 [History] RX: Apixaban [Eliquis] 5 mg PO BID 30 Days #60 tablet 01/24/18 [Rx] Furosemide [Lasix] 40 mg PO DAILY 02/07/18 [History] HYDROcodone/Acet 5/325 mg [[place] 5-325 mg] 1 tab PO Q6H PRN 02/07/18 [History] Magnesium Hydroxide [Milk of Magnesia] 30 ml PO DAILY PRN 02/07/18 [History] Ondansetron HCl [Zofran] 4 mg PO Q8HR PRN 02/07/18 [History] RX: Lactulose 30 ml PO BID 02/07/18 [History] Acetaminophen [Tylenol Arthritis] 650 mg PO Q6H PRN 02/08/18 [History] Aspirin [Adult Aspirin Regimen] 81 mg PO DAILY 02/08/18 [History] Cetirizine HCl [All Day Allergy] 10 mg PO DAILY PRN 02/08/18 [History] Cholecalciferol (D-3) [Vitamin D] 2,000 unit PO DAILY 02/08/18 [History] Allergy/AdvReac Type Severity Reaction Status Date / Time empagliflozin AdvReac See Verified 02/08/18 17:02 [From Jardiance] Comments All Systems Review: The remainder of the systems were reviewed and are negative - Cardiovascular Cardiovascular: as per HPI, dyspnea on exertion - Gastrointestinal Gastrointestinal: melena Physical Examination Vital Signs, Last 4 Hours Temp Pulse Resp BP Pulse Ox 02/10/18 10:33 97.6 F 81 18 75/51 95 02/10/18 10:00 97.4 F L 78 20 72/49 94 02/10/18 08:36 98.1 F 83 20 91/60 97 02/10/18 07:22 97.7 F 82 16 94/63 98 Vital Signs Temp Pulse Resp BP Pulse Ox 02/10/18 10:33 97.6 F 81 18 75/51 95 02/10/18 10:00 97.4 F L 78 20 72/49 94 02/10/18 08:36 98.1 F 83 20 91/60 97 02/10/18 07:22 97.7 F 82 16 94/63 98 02/10/18 04:45 97.6 F 83 15 106/68 100 02/10/18 00:05 97.5 F L 86 14 120/78 95 02/09/18 19:16 97.9 F 94 16 107/71 98 02/09/18 14:22 97.5 F L 118 16 104/68 98 Intake and Output 02/09/18 02/10/18 02/10/18 23:59 07:59 15:59 Intake Total 1450 / 1450 150 / 150 59.6 / 59.6 Output Total 0 / 0 Balance 1450 / 1450 150 / 150 59.6 / 59.6 Intake: IV Fluids 150 / 150 150 / 150 59.6 / 59.6 Cardizem 50 MG In 0.9 % Sodium 50 / 50 50 / 50 59.6 / 59.6 Chloride 40 ML @ 5 MG/HR 5 mls/ hr IVC .Q10H GENARO Rx#:[id number] Protonix 40 MG In 0.9 % Sodium 100 / 100 100 / 100 Chloride (Mini-Bag +) 100 ML @ 20 mls/hr IVC .Q5H GENARO Rx#: [id number] Oral 1300 / 1300 0 / 0 Output: Urine 0 / 0 Other: Meal KEEPING Stool Size Large Moderate Stool Consistency liquid liquid Stool Color Brown Brown # Voids 1 # Bowel Movements 1 1 Weight 104.9 kg Blood Glucose* 168 Patient Weight 02/10/18 23:59 Weight 104.9 kg General: No Apparent Distress HEENT: Atraumatic, Normocephaly, Mucus Membranes Moist Neck: No JVD, Normal carotid pulses Cardiac: Other (irregularly irregular) Lungs: Other (diminished) Neuro: Alert and responsive, No focal deficits noted Abdomen: Soft, Non-Tender Skin: No rashes noted on visualized skin Musculoskeletal: No Chest Wall Tenderness Extremities: No Clubbing, No Cyanosis, No Edema, Normal Pulses Results 02/10/18 04:19 02/09/18 03:44 Lab Results 02/10/18 04:19 WBC 6.9 Hgb 9.1 L Hct 29.7 L Plt Count 348 Short CBC 02/10/18 Range/Units 04:19 WBC 6.9 (4.3-11.1) K/mcL Hgb 9.1 L (12.9-16.9) g/dL Hct 29.7 L (37.5-50.1) % Plt Count 348 (140-400) K/mcL Neutrophils # 3.7 (1.6-8.9) K/mcL Active Medications Carvedilol (Coreg) 18.75 mg PO BIDWM [facility]; Protocol Stop: 08/11/18 17:01 Last Admin: 02/10/18 08:06 Dose: 18.75 mg Dextrose/Water (Dextrose 50% (Syg)) 25 ml IVP AD PRN PRN Reason: Hypoglycemia Stop: 08/09/18 20:50 Gabapentin (Neurontin) 400 mg PO TID GENARO Stop: 08/11/18 09:31 Last Admin: 02/10/18 08:07 Dose: 400 mg Glucagon (Glucagen) 1 mg IM ONCE PRN PRN Reason: Hypoglycemia Stop: 08/09/18 20:50 Glucose (Gluctose) 15 gm PO ONCE PRN PRN Reason: Hypoglycemia Stop: 08/09/18 20:50 Glucose (Gluctose) 30 gm PO ONCE PRN PRN Reason: Hypoglycemia Stop: 08/09/18 20:50 Dextrose (Dextrose 5%) 1,000 mls @ 100 mls/hr IVC .Q10H PRN PRN Reason: HYPOGLYCEMIA Stop: 08/09/18 20:50 Pantoprazole Sodium 40 mg/ (Sodium Chloride) 100 mls @ 20 mls/hr IVC .Q5H GENARO Stop: 08/10/18 00:46 Last Admin: 02/10/18 04:18 Dose: 20 mls/hr Sodium Chloride (0.9 % Sodium Chloride) 500 mls @ 999 mls/hr IVC .Q31M ONE Stop: 02/10/18 10:59 Insulin Human Lispro (Humalog) 0 units SQ HS [facility]; Protocol Stop: 08/12/18 21:01 Insulin Human Lispro (Humalog) 0 units SQ TIDAC [facility]; Protocol Stop: 08/12/18 11:31 Metoprolol Tartrate (Lopressor) 5 mg IVP Q6HR PRN PRN Reason: HR > 110 Stop: 08/11/18 09:19 Naloxone HCl (Narcan) 0.4 mg IVP Q2MIN PRN PRN Reason: SEE COMMENTS Stop: 08/09/18 20:46 Ondansetron HCl (Zofran) 4 mg IVP Q6HR PRN; Protocol PRN Reason: Nausea And Vomiting Stop: 08/09/18 22:39 Last Admin: 02/08/18 01:17 Dose: 4 mg Oxycodone HCl (Oxycodone Oral Conc) 2.5 mg SL Q6HR PRN; Protocol PRN Reason: Pain Stop: 08/10/18 01:39 Last Admin: 02/10/18 08:05 Dose: 2.5 mg - Imaging and Cardiology Echo: report reviewed - EKG Interpretation EKG results cardiology: personally reviewed (A-Fib RVR rate 122), other (12 hr tele aVG HR 84, A-Fib) Consult Discharge Plan - Plan Referrals: NONE,PCP [Primary Care Provider] - <Gerson Riojas - Last Filed: 02/10/18 14:32> - Attending Attestation I have personally performed a face to face evaluation on this patient. I have reviewed and agree with the care plan. History and Exam by me shows: 67-year-old male history of coronary artery disease status post-PCI, CABG in 2006, status post-permanent pacemaker, diabetic, hypertension, high ventricular failure with ejection fraction 20% and known atrial fibrillation presents for GI bleed status post endoscopy. Patient with A. fib RVR currently on carvedilol. We will discontinue and start on Toprol XL as tolerated due to hypotension. Patient recommended for anticoagulation for stroke risk reduction when deemed safe from GI perspective. Assessment and Plan Discussion w patient/family: The assessment and plan as outlined above was discussed with the patient and/or family members who expressed understanding and agreement. All questions were answered. Thank you for involving us in the care of your patient. Please call with any questions. History of Present Illness History of present illness: Mr. Velásquez is a 67 year old male All Systems Review: The remainder of the systems were reviewed and are negative Physical Examination Vital Signs, Last 4 Hours Temp Pulse Resp BP Pulse Ox 02/10/18 14:14 97.2 F L 86 16 90/56 94 02/10/18 12:00 97.1 F L 84 18 91/62 97 02/10/18 11:05 96.8 F L 79 18 94/58 92 02/10/18 10:33 97.6 F 81 18 75/51 95 Results 02/10/18 04:19 02/09/18 03:44 Lab Results 02/10/18 04:19 WBC 6.9 Hgb 9.1 L Hct 29.7 L Plt Count 348
--- NOTE | 2018-02-10 11:02 | Internal Med Progress Note ---
Hospitalist Progress Note - Encounter Date of Encounter: 02/10/18 Time of Encounter: 11:01 - Subjective Interval History: Patient seen and examined this morning. No acute overnight events. BP on lower end this morning. Currently without dizziness, chest pain, palpitation or difficulty breathing. Plan for EGD, colonoscopy today. - Exam Vitals: Temp Pulse Resp BP Pulse Ox 97.6 F 81 18 75/51 95 02/10/18 10:33 02/10/18 10:33 02/10/18 10:33 02/10/18 10:33 02/10/18 10:33 Exam: General: NAD, In no distress, obese Neck: Supple, no lymphadenopathy Cardio: irregular rhythm, +S1/S2, no MRG Pulm: CTAB; no wheezing, rhonchi, rales Abdomen: soft, non tender, normal bowel sounds, umbilical hernia Extremities: 2+ pitting edema bilaterally, Neuro: AAOx3, no focal deficit, no speech deficit, mentation mentating well, CN II-XII grossly intact, moves extremities spontaneously Skin: clean, dry, chronic LLE ulcer under dressing. chronic stasis dermatitis changes present. Psych: Appropriate mood and affect. Answers questions appropriately. 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 Stable Hb at 9.7 - home eliquis held - INR at 3.0 on presentation. most likely related to h/o cirrhosis and Eliquis use - c/w protonix gtt - EGD and colonoscopy today - Continuous tele Atrial fibrillation - Home Eliquis held - Started on clears with home coreg yesterday. Lopressor not held yersterday. cardizem drip discontinued. c/w prn IV lopressor - Cadiology following. Recommendation appreciated. Coreg stopped. Started on toprol xl given BP on lower end. Gave 500 cc bolus after EGD/colonoscopy - Will likely dc with aspirin and hold eliquis for 2 weeks on DC. Will f/u GI recomendations. Systolic heart failure - likely d/t ischemic cardiomyopathy - Last echocardiogram 01/17/18 showed LVEF 20%--AICD in place - diuretics held d/t borderline hypotension and GIB - atorvastatin held Diabetes mellitus - SSI and Accu-Cheks Q6H Essential hypertension - Anti-hypertensives held b/c of blood pressure - Will start cardizem DVT - Distal right superficial femoral vein thrombus, thought to be chronic in nature, diagnosed on 01/22/18 via LE venous duplex - EPCD Plan for DC tomorrow if Hb stable. - Time Spent with Patient Total time spent is greater than 50% in coordination of care (as documented) at patient's floor/unit and/or counseling patient: Internal Medicine: Result - Labs CBC & Chem 7: 02/10/18 04:19 02/09/18 03:44 Labs: Short CBC 02/10/18 Range/Units 04:19 WBC 6.9 (4.3-11.1) K/mcL Hgb 9.1 L (12.9-16.9) g/dL Hct 29.7 L (37.5-50.1) % Plt Count 348 (140-400) K/mcL Neutrophils # 3.7 (1.6-8.9) K/mcL - ABG Interpretation ABG results: PT/INR, D-dimer PT 19.8 Seconds (9.4-12.1) H 02/08/18 10:41 - VTE Reasons for not Prescribing Prophylaxis: Medical contraindication Consult Discharge Plan - Plan Referrals: NONE,PCP [Primary Care Provider] - (1) Coronary artery disease Qualifiers: Coronary Disease-Associated Artery/Lesion type: bypass graft [place] vs. transplanted heart: [place] heart Associated angina: without angina Qualified Code(s): I25.810 - Atherosclerosis of coronary artery bypass graft(s) without an oscar pectoris (2) Diabetes mellitus Qualifiers: Diabetes mellitus type: type 2 Diabetes mellitus shelter insulin use: without shelter use Diabetes mellitus complication status: with circulatory complication Diabetes mellitus complication detail: with other circulatory complications Qualified Code(s): E11.59 - Type 2 diabetes mellitus with other circulatory complications (5) Atrial fibrillation Qualifiers: Atrial fibrillation type: chronic Qualified Code(s): I48.2 - Chronic atrial fibrillation (6) DVT (deep venous thrombosis) Qualifiers: DVT location: lower extremity Affected thrombotic vein of extremity: unspecified vein of extremity Chronicity: unspecified Laterality: right Qualified Code(s): I82.401 - Acute embolism and thrombosis of unspecified deep veins of right lower extremity (8) Systolic heart failure Qualifiers: Heart failure chronicity: chronic Qualified Code(s): I50.22 - Chronic systolic (congestive) heart failure (9) GI bleeding Qualifiers: GI bleed type/associated pathology: unspecified gastrointestinal hemorrhage type Qualified Code(s): K92.2 - Gastrointestinal hemorrhage, unspecified
[2018-02-11 06:20] LABS: Basophils # 0.1 K/mcL (0.0-0.2); Basophils % 1.4 %; Eosinophils # 0.5 K/mcL (0.0-0.6); Eosinophils % 9.4 %; Hemoglobin 8.7 g/dL (12.9-16.9); Immature Granulocytes % 0.5 % (0-4); Lymphocytes # 1.2 K/mcL (0.6-4.6); Lymphocytes % 21.9 %; Mean Corpuscular HGB Conc 31.1 g/dL (31.6-35.5); Mean Corpuscular Hemoglobin 25.4 pg (28.0-33.3); Mean Corpuscular Volume 81.6 fL (83.0-100.0); Mean Platelet Volume 10.6 fL (9.4-12.4); Monocytes # 0.9 K/mcL (0.0-1.3); Monocytes % 15.6 %; Neutrophils # 2.8 K/mcL (1.6-8.9); Platelet Count 278 K/mcL (140-400); Red Blood Count 3.43 M/mcL (4.19-5.50); Red Cell Distribution Width 19.2 % (11.5-14.5); Segmented Neutrophils % 51.2 %
[2018-02-11 06:58] LABS: BUN/Creatinine Ratio 26 (6-26); Blood Urea Nitrogen 28 mg/dL (8-23); Calcium 8.5 mg/dL (8.6-10.3); Carbon Dioxide 23 mEq/L (23-29); Chloride 101 mEq/L (98-107); Glucose 134 mg/dL (70-105); Osmolality,Calculated 279 (280-300); Potassium 4.5 mEq/L (3.5-5.1); Sodium 131 mEq/L (136-145); eGFR For Non-African Americans > 60 (> 60)
--- NOTE | 2018-02-11 08:36 | General Surgery Progress Note ---
<JaniceRaymundo S - Last Filed: 02/11/18 08:48> Date of Encounter: 02/11/18 Time of Encounter: 08:34 - Assessment and Plan (1) GI bleeding Current Visit: Yes Status: Suspected Patient is post-op day 1 for EGD and colonoscopy Findings show diverticulosis in ascending colon, non-bleeding internal hemorrhoids, non-bleeding gastric ulcers, rectal polyp - excised Hgb 9.1 > 8.7 today Patient states he had a non-bloody BM shortly after procedure, but has not had any since Patient tolerating diabetic diet Patient on 20 mg omeprazole BID Started patient on 1 g carafate QIDAD Follow-up with Dr. Hinojosa in 1 week Surgery will sign off at this time, thank you for the consult Qualifiers: GI bleed type/associated pathology: unspecified gastrointestinal hemorrhage type Qualified Code(s): K92.2 - Gastrointestinal hemorrhage, unspecified Subjective Patient reports: no new complaints, feels better, tolerating a regular diet, flatus, bowel movement (small, non-bloody BM yesterday after procedure), afebrile Narrative: Denies abdominal pain, nausea, vomiting. Objective Vital Signs - Last 8 Hours Temp Pulse Resp BP Pulse Ox 02/11/18 07:30 97.9 F 81 16 103/70 98 02/11/18 03:44 97.3 F L 99 18 96/65 94 Intake and Output 02/10/18 02/11/18 02/11/18 23:59 07:59 15:59 Output Total 400 / 400 Balance -400 / -400 Output: Urine 400 / 400 Other: Weight 103 kg Blood Glucose* 145 133 Patient Weight 02/11/18 23:59 Weight 103 kg - General physical appearance well developed - Respiratory normal expansion, normal respiratory effort - Cardiovascular Cardiovascular exam: Present: RRR - Abdomen Abdomen: Present: bowel sounds present, soft, tender Abdominal Tenderness: LLQ, suprapubic Hernia: reducible, umbilical - Integumentary no rash - Musculoskeletal normal gait - Psychiatric oriented to time, oriented to person, oriented to place - Labs 02/11/18 05:50 02/11/18 05:50 Diabetes panel 02/11/18 Range/Units 05:50 Sodium 131 L (136-145) mEq/L Potassium 4.5 (3.5-5.1) mEq/L Chloride 101 (98-107) mEq/L Carbon Dioxide 23 (23-29) mEq/L BUN 28 H (8-23) mg/dL Creatinine 1.08 (0.70-1.30) mg/dL Glucose 134 H (70-105) mg/dL Calcium 8.5 L (8.6-10.3) mg/dL Calcium panel 02/11/18 Range/Units 05:50 Calcium 8.5 L (8.6-10.3) mg/dL Pituitary panel 02/11/18 Range/Units 05:50 Sodium 131 L (136-145) mEq/L Potassium 4.5 (3.5-5.1) mEq/L Chloride 101 (98-107) mEq/L Carbon Dioxide 23 (23-29) mEq/L BUN 28 H (8-23) mg/dL Creatinine 1.08 (0.70-1.30) mg/dL Glucose 134 H (70-105) mg/dL Calcium 8.5 L (8.6-10.3) mg/dL Adrenal panel 02/11/18 Range/Units 05:50 Sodium 131 L (136-145) mEq/L Potassium 4.5 (3.5-5.1) mEq/L Chloride 101 (98-107) mEq/L Carbon Dioxide 23 (23-29) mEq/L BUN 28 H (8-23) mg/dL Creatinine 1.08 (0.70-1.30) mg/dL Glucose 134 H (70-105) mg/dL Calcium 8.5 L (8.6-10.3) mg/dL - VTE Reasons for not Prescribing Prophylaxis: Medical contraindication Consult Discharge Plan - Plan Referrals: NONE,PCP [Primary Care Provider] - <Napoleon Hinojosa - Last Filed: 02/11/18 11:56> - Assessment and Plan (1) GI bleeding Current Visit: Yes Status: Suspected Qualifiers: GI bleed type/associated pathology: unspecified gastrointestinal hemorrhage type Qualified Code(s): K92.2 - Gastrointestinal hemorrhage, unspecified Objective Vital Signs - Last 8 Hours Temp Pulse Resp BP Pulse Ox 02/11/18 10:22 97.3 F L 97 18 104/69 95 02/11/18 09:19 98 02/11/18 07:30 97.9 F 81 16 103/70 98 Intake and Output 02/10/18 02/11/18 02/11/18 23:59 07:59 15:59 Intake Total 240 / 240 Output Total 400 / 400 0 / 0 Balance -400 / -400 240 / 240 Intake: Oral 240 / 240 Output: Urine 400 / 400 0 / 0 Other: Meal Breakfast Percent of Meal Consumed 75% # Bowel Movements 0 Weight 103 kg Blood Glucose* 145 133 158 Patient Weight 02/11/18 23:59 Weight 103 kg - Labs 02/11/18 05:50 02/11/18 05:50 Diabetes panel 02/11/18 Range/Units 05:50 Sodium 131 L (136-145) mEq/L Potassium 4.5 (3.5-5.1) mEq/L Chloride 101 (98-107) mEq/L Carbon Dioxide 23 (23-29) mEq/L BUN 28 H (8-23) mg/dL Creatinine 1.08 (0.70-1.30) mg/dL Glucose 134 H (70-105) mg/dL Calcium 8.5 L (8.6-10.3) mg/dL Calcium panel 02/11/18 Range/Units 05:50 Calcium 8.5 L (8.6-10.3) mg/dL Pituitary panel 02/11/18 Range/Units 05:50 Sodium 131 L (136-145) mEq/L Potassium 4.5 (3.5-5.1) mEq/L Chloride 101 (98-107) mEq/L Carbon Dioxide 23 (23-29) mEq/L BUN 28 H (8-23) mg/dL Creatinine 1.08 (0.70-1.30) mg/dL Glucose 134 H (70-105) mg/dL Calcium 8.5 L (8.6-10.3) mg/dL Adrenal panel 02/11/18 Range/Units 05:50 Sodium 131 L (136-145) mEq/L Potassium 4.5 (3.5-5.1) mEq/L Chloride 101 (98-107) mEq/L Carbon Dioxide 23 (23-29) mEq/L BUN 28 H (8-23) mg/dL Creatinine 1.08 (0.70-1.30) mg/dL Glucose 134 H (70-105) mg/dL Calcium 8.5 L (8.6-10.3) mg/dL - Attending Attestation patient seen and examined. i have reviewed all labs, imaging, and notes. i have discussed with the resident in detail about the plan. i agree with the lul kyle assessment and plan.
[2018-02-11] MEDS: Insulin LISPRO 300 UNITS/3 ML VIAL SQ SCH ×4 (08:45→22:58)
[2018-02-11] MEDS ORDERED: Metoprolol XL (24 HR) Succ 25 MG TAB.ER.24H PO SCH (09:00)
[2018-02-11] MEDS: Gabapentin 400 MG CAPSULE PO SCH ×3 (09:06→22:58)
[2018-02-11] MEDS: Sucralfate 1 GM TABLET PO SCH ×4 (09:06→22:58)
[2018-02-11] MEDS ORDERED: Metoprolol XL (24 HR) Succ 25 MG TAB.ER.24H PO ONE (13:23)
[2018-02-11] MEDS: OXYCODONE Oral CONC 10 MG/0.5 ML ORAL.SYG SL PRN ×2 (14:37→23:37)
--- NOTE | 2018-02-11 14:45 | Cardiology Progress Note ---
Date of Encounter: 02/11/18 Time of Encounter: 14:43 Assessment and Plan (1) Atrial fibrillation Current Visit: Yes Status: Chronic Known A-Fib/Flutter. Home meds include Coreg 18.75mg BID. Was anticoagulated on Eliquis, but presented with GI bleeding and since held. Consider resuming as outpt once okay with GI given high CVA risk--[id number] (Age, HTN, CAD, CHF, DM). Recommend at least 81mg daily ASA if okay with GI. PO meds were held and pt went into A-Fib RVR. BB was resumed, but hypotensive. Dr. Riojas recommended switching Coreg to Toprol XL given hypotension. Started Toprol XL 25mg daily this AM. HR 100-120s at bedside. Increase Toprol XL to 50mg daily and will uptitrate as necessary. Continue to follow. Qualifiers: Atrial fibrillation type: chronic Qualified Code(s): I48.2 - Chronic atrial fibrillation (2) Coronary artery disease Current Visit: Yes Status: Chronic Hx of CABG and PCI. Denies CP. Statin, BB. Recommend resuming 81mg ASA once okay with GI. Qualifiers: Coronary Disease-Associated Artery/Lesion type: bypass graft [place] vs. transplanted heart: [place] heart Associated angina: without angina Qualified Code(s): I25.810 - Atherosclerosis of coronary artery bypass graft(s) without angina pectoris (3) Systolic heart failure Current Visit: Yes Status: Chronic Chronic systolic CHF. Known EF 20%--ICD in place. Hx of dietary indiscretion. Currently near baseline, denies worsening dyspnea. Recommend resuming home Lasix and Aldactone once BP allows. Qualifiers: Heart failure chronicity: chronic Qualified Code(s): I50.22 - Chronic systolic (congestive) heart failure (4) Ischemic cardiomyopathy Current Visit: No Status: Chronic Known ICMP s/p ICD. EF 20%. Continue BB. Resume Aldactone once BP allows. Discussion w patient/family: The assessment and plan as outlined above was discussed with the patient and/or family members who expressed understanding and agreement. All questions were answered. Thank you for involving us in the care of your patient. Please call with any questions. I will discuss all the above with Dr. Riojas and make changes as necessary. Subjective Principal diagnosis: GI bleed, A-Fib Interval history: Pt denies acute cardiac complaints. Currently A-Fib RVR rate 100-120s. Switched Coreg to Toprol XL due to hypotension. Objective Vital Signs Temp Pulse Resp BP Pulse Ox 02/11/18 10:22 97.3 F L 97 18 104/69 95 02/11/18 09:19 98 02/11/18 07:30 97.9 F 81 16 103/70 98 02/11/18 03:44 97.3 F L 99 18 96/65 94 02/10/18 23:14 97.6 F 91 16 94/57 99 02/10/18 18:53 97.3 F L 81 16 100/63 91 Intake and Output 02/10/18 02/11/18 02/11/18 23:59 07:59 15:59 Intake Total 240 / 240 Output Total 400 / 400 0 / 0 Balance -400 / -400 240 / 240 Intake: Oral 240 / 240 Output: Urine 400 / 400 0 / 0 Other: Meal Breakfast Percent of Meal Consumed 75% # Bowel Movements 0 Weight 103 kg Blood Glucose* 145 133 158 Patient Weight 02/11/18 23:59 Weight 103 kg General: Conversant, No Apparent Distress HEENT: Atraumatic, Normocephaly, Mucus Membranes Moist Neck: Normal carotid pulses Cardiac: Other (irregularly irregular) Lungs: Other (diminished) Neuro: Alert and responsive, No focal deficits noted Abdomen: Soft, Non-Tender Skin: No rashes noted on visualized skin Musculoskeletal: No Chest Wall Tenderness Extremities: No Clubbing, No Cyanosis, No Edema, Normal Pulses Results 02/11/18 05:50 02/11/18 05:50 Lab Results 02/11/18 02/11/18 05:50 05:50 WBC 5.5 Hgb 8.7 L Hct 28.0 L Plt Count 278 Sodium 131 L Potassium 4.5 Chloride 101 Carbon Dioxide 23 BUN 28 H Creatinine 1.08 Glucose 134 H Calcium 8.5 L Short CBC 02/11/18 Range/Units 05:50 WBC 5.5 (4.3-11.1) K/mcL Hgb 8.7 L (12.9-16.9) g/dL Hct 28.0 L (37.5-50.1) % Plt Count 278 (140-400) K/mcL Neutrophils # 2.8 (1.6-8.9) K/mcL BMP 02/11/18 Range/Units 05:50 Sodium 131 L (136-145) mEq/L Potassium 4.5 (3.5-5.1) mEq/L Chloride 101 (98-107) mEq/L Carbon Dioxide 23 (23-29) mEq/L BUN 28 H (8-23) mg/dL Creatinine 1.08 (0.70-1.30) mg/dL Glucose 134 H (70-105) mg/dL Calcium 8.5 L (8.6-10.3) mg/dL Active Medications Albuterol Sulfate (Albuterol Inhaler) 2 puff IH [id number] PRN PRN Reason: Shortness Of Breath Stop: 08/12/18 16:01 Dextrose/Water (Dextrose 50% (Syg)) 25 ml IVP AD PRN PRN Reason: Hypoglycemia Stop: 08/09/18 20:50 Gabapentin (Neurontin) 400 mg PO TID GENARO Stop: 08/11/18 09:31 Last Admin: 02/11/18 14:34 Dose: 400 mg Glucagon (Glucagen) 1 mg IM ONCE PRN PRN Reason: Hypoglycemia Stop: 08/09/18 20:50 Glucose (Gluctose) 15 gm PO ONCE PRN PRN Reason: Hypoglycemia Stop: 08/09/18 20:50 Glucose (Gluctose) 30 gm PO ONCE PRN PRN Reason: Hypoglycemia Stop: 08/09/18 20:50 Dextrose (Dextrose 5%) 1,000 mls @ 100 mls/hr IVC .Q10H PRN PRN Reason: HYPOGLYCEMIA Stop: 08/09/18 20:50 Insulin Human Lispro (Humalog) 0 units SQ HS [facility]; Protocol Stop: 08/12/18 21:01 Last Admin: 02/10/18 20:41 Dose: Not Given Insulin Human Lispro (Humalog) 0 units SQ TIDAC [facility]; Protocol Stop: 08/12/18 11:31 Last Admin: 02/11/18 12:06 Dose: 2 units Metoprolol Succinate (Toprol Xl) 50 mg PO DAILY [facility] Stop: 08/14/18 09:01 Metoprolol Tartrate (Lopressor) 5 mg IVP Q6HR PRN PRN Reason: HR > 110 Stop: 08/11/18 09:19 Naloxone HCl (Narcan) 0.4 mg IVP Q2MIN PRN PRN Reason: SEE COMMENTS Stop: 08/09/18 20:46 Omeprazole (Prilosec) 20 mg PO BIDAC GENARO; Protocol Stop: 08/12/18 16:31 Last Admin: 02/11/18 09:06 Dose: 20 mg Ondansetron HCl (Zofran) 4 mg IVP Q6HR PRN; Protocol PRN Reason: Nausea And Vomiting Stop: 08/09/18 22:39 Last Admin: 02/08/18 01:17 Dose: 4 mg Oxycodone HCl (Oxycodone Oral Conc) 2.5 mg SL Q6HR PRN; Protocol PRN Reason: Pain Stop: 08/10/18 01:39 Last Admin: 02/11/18 14:37 Dose: 2.5 mg Sucralfate (Carafate) 1 gm PO QIDAC GENARO Stop: 08/13/18 08:16 Last Admin: 02/11/18 12:06 Dose: 1 gm - EKG Interpretation EKG results cardiology: other (12 hr tele AVG HR 88, A-Flutter) - VTE Reasons for not Prescribing Prophylaxis: Medical contraindication Consult Discharge Plan - Plan Referrals: NONE,PCP [Primary Care Provider] -
--- NOTE | 2018-02-11 15:13 | Physician Discharge Referral ---
Home Health/Hosp Referral Info Transfer to: Home Health Attending Provider: Kayley Reed Provider in Charge Post Discharge: PCP - Diagnosis (1) GI bleeding Priority: Primary Status: Acute (2) Anemia due to acute blood loss Priority: Primary Status: Acute (3) Atrial fibrillation Priority: Primary Status: Chronic (4) Chronic systolic heart failure Priority: Secondary Status: Chronic (5) Coronary artery disease Priority: Secondary Status: Chronic (6) COPD (chronic obstructive pulmonary disease) Priority: Secondary Status: Chronic (7) Afib Status: Chronic - Respiratory Orders None Smoking Cessation: Smoking cessation has been advised. For more information, call the [place] Tobacco Quit Line at 0-046-TRHX-NOW. - Diet/Nutrition Diet/Nutrition Orders: Cardiac (FLUIF RESTRICTION OF 1500 ML PER DAY..) - Activity Activity Orders: Up ad dina - Services Needed Following services are medically necessary services: Nursing, Physical Therapy, Occupational Therapy - Transfer Medications Prescriptions: Metoprolol XL (24 HR) Succ [Toprol Xl] 50 mg PO DAILY #30 tab.er.24h Omeprazole [PriLOSEC] 20 mg PO BIDAC #60 capsule.dr Home Medications: Albuterol Sulfate [Albuterol Inhaler] 2 puff IH Q4HR PRN #1 hfa.aer.[id number] 11/25/17 [Rx] Atorvastatin Calcium [Lipitor] 80 mg PO HS 12/18/17 [History] Gabapentin [Neurontin] 400 mg PO TID 01/18/18 [History] Spironolactone [Aldactone] 100 mg PO DAILY 01/18/18 [History] Furosemide [Lasix] 40 mg PO DAILY 02/07/18 [History] HYDROcodone/Acet 5/325 mg [[place] 5-325 mg] 1 tab PO Q6H PRN 02/07/18 [History] Lactulose 30 ml PO BID 02/07/18 [History] Magnesium Hydroxide [Milk of Magnesia] 30 ml PO DAILY PRN 02/07/18 [History] Ondansetron HCl [Zofran] 4 mg PO Q8HR PRN 02/07/18 [History] Acetaminophen [Tylenol Arthritis] 650 mg PO Q6H PRN 02/08/18 [History] Aspirin [Adult Aspirin Regimen] 81 mg PO DAILY 02/08/18 [History] Cetirizine HCl [All Day Allergy] 10 mg PO DAILY PRN 02/08/18 [History] Cholecalciferol (D-3) [Vitamin D] 2,000 unit PO DAILY 02/08/18 [History] Metoprolol XL (24 HR) Succ [Toprol Xl] 50 mg PO DAILY #30 tab.er.24h 02/11/18 [Rx] Omeprazole [PriLOSEC] 20 mg PO BIDAC #60 capsule.dr 02/11/18 [Rx] Allergies/Adverse Reactions: Allergy/AdvReac Type Severity Reaction Status Date / Time empagliflozin AdvReac See Verified 02/08/18 17:02 [From Jardiance] Comments Certification: Further, I certify that my clinical findings support that this patient is homebound (i.e. absences from home require considerable and taxing effort and are for medical reasons or mosque services or infrequently or short duration when for other reasons) because: Homebound Reason: Patient requires assistance of a person or device to safely leave home Attestation: My signature below is to certify that this patient is under my care and that I, or nurse practitioner, or a physician's community program assistant working with me, has a [id number] encounter with this patient.
--- NOTE | 2018-02-11 22:35 | Internal Med Progress Note ---
Hospitalist Progress Note - Encounter Date of Encounter: 02/11/18 Time of Encounter: 19:00 - Subjective Interval History: SUBJECTIVE: The patient feels good. Denies chest pain and difficulty breathing. Denies abdominal pain, nausea and vomiting. He has normal urination. We have not seen him passing blood recently. He did have black stools shortly b efore this admission. The patient had upper and lower endoscopy done by general surgery yesterday. OBJECTIVE: Skin: Free of rash and discoloration. ENMT: Oral/pharyngeal mucosa is normal in appearance. Eyes: Sclera is white. There is no discharge from eyes. Respiratory: Normal breath sounds; no crackles or wheezes. CV: Heart is regular; no gallop or murmur. GI: Abdomen is soft and not tender. There is no palpable mass or visceromegaly. Neuro: There is no focal deficits. ADDITIONAL DATA: Hemoglobin is 8.7; 9.1 yesterday. His BMP is normal. ASSESSMENT AND PLAN: GI bleeding/acute blood loss anemia. Upper endoscopy showed multiple gastric ulcers, nonbleeding. Lower endoscopy showed diverticulosis of colon with no visible source for bleeding. We will continue Prilosec and Carafate. We appreciate help from general surgery. Atrial fibrillation. Rate controlled. We will continue Toprol-XL. I talked to the patient about the risks and benefits of anticoagulation. I suggested that he would be taking Coumadin instead of Eliquis. He is to decide by tomorrow, whether he will take anticoagulation or not. Coronary artery disease/chronic systolic heart failure (ejection fraction of 20%). Will continue Toprol-XL. He is not a candidate for INGA inhibitor/ARB due to his low blood pressure. We will use diuretics sparingly due to his recent history of GI bleeding. DISPOSITION: We will check his hemoglobin tomorrow. Anticipate his discharge tomorrow morning or afternoon. - Exam Vitals: Temp Pulse Resp BP Pulse Ox 98.1 F 117 14 102/68 92 02/11/18 20:02 02/11/18 20:02 02/11/18 20:02 02/11/18 20:02 02/11/18 20:02 Exam: xx - Assessment and Plan (1) GI bleeding Current Visit: Yes Status: Acute (2) Anemia due to acute blood loss Current Visit: Yes Status: Acute (3) Afib Current Visit: No Status: Chronic (4) Chronic systolic heart failure Current Visit: Yes Status: Chronic (5) Coronary artery disease Current Visit: Yes Status: Chronic (6) COPD (chronic obstructive pulmonary disease) Current Visit: Yes Status: Chronic - Time Spent with Patient Total time spent is greater than 50% in coordination of care (as documented) at patient's floor/unit and/or counseling patient: 25 - 35 minutes Plan of Care Discussed with: patient Internal Medicine: Result - Labs CBC & Chem 7: 02/11/18 05:50 02/11/18 05:50 Labs: Short CBC 02/11/18 Range/Units 05:50 WBC 5.5 (4.3-11.1) K/mcL Hgb 8.7 L (12.9-16.9) g/dL Hct 28.0 L (37.5-50.1) % Plt Count 278 (140-400) K/mcL Neutrophils # 2.8 (1.6-8.9) K/mcL BMP 02/11/18 05:50 Sodium 131 L Potassium 4.5 Chloride 101 Carbon Dioxide 23 BUN 28 H Creatinine 1.08 Glucose 134 H Calcium 8.5 L - ABG Interpretation ABG results: PT/INR, D-dimer PT 19.8 Seconds (9.4-12.1) H 02/08/18 10:41 - VTE Reasons for not Prescribing Prophylaxis: Medical contraindication Consult Discharge Plan - Plan Referrals: NONE,PCP [Primary Care Provider] - Prescriptions: Metoprolol XL (24 HR) Succ [Toprol Xl] 50 mg PO DAILY #30 tab.er.24h Omeprazole [PriLOSEC] 20 mg PO BIDAC #60 capsule.dr (1) GI bleeding Qualifiers: GI bleed type/associated pathology: unspecified gastrointestinal hemorrhage type Qualified Code(s): K92.2 - Gastrointestinal hemorrhage, unspecified (3) Afib Qualifiers: Atrial fibrillation type: paroxysmal Qualified Code(s): I48.0 - Paroxysmal atrial fibrillation (5) Coronary artery disease Qualifiers: Coronary Disease-Associated Artery/Lesion type: bypass graft [place] vs. transplanted heart: [place] heart Associated angina: without angina Qualified Code(s): I25.810 - Atherosclerosis of coronary artery bypass graft(s) without angina pectoris
[2018-02-12 05:32] LABS: Hematocrit 28.3 % (37.5-50.1); Hemoglobin 8.7 g/dL (12.9-16.9)
[2018-02-12] MEDS: Insulin LISPRO 300 UNITS/3 ML VIAL SQ SCH ×4 (08:46→22:20)
[2018-02-12] MEDS: Gabapentin 400 MG CAPSULE PO SCH ×3 (08:52→22:26)
[2018-02-12] MEDS: Sucralfate 1 GM TABLET PO SCH ×4 (08:52→22:26)
[2018-02-12] MEDS: Metoprolol XL (24 HR) Succ 25 MG TAB.ER.24H PO SCH (08:52)
[2018-02-12] MEDS ORDERED: *HR* Digoxin 0.5 MG/2 ML AMPUL IVP SCH (10:47)
[2018-02-12] MEDS ORDERED: *HR* Digoxin 0.5 MG/2 ML AMPUL IVP ONE (11:31)
--- NOTE | 2018-02-12 13:40 | Cardiology Progress Note ---
Date of Encounter: 02/12/18 Time of Encounter: 13:37 Assessment and Plan (1) Atrial fibrillation Current Visit: Yes Status: Chronic Known A-Fib/Flutter initially diagnosed 06/2017 that seems to be persistent since that time. Home meds include Coreg 18.75mg BID. Was anticoagulated on Eliquis, but presented with GI bleeding and since held. Consider resuming anticoagulation once okay with GI given high CVA risk--[id number] (Age, HTN, CAD, CHF, DM). Recommend at least 81mg daily ASA if okay with GI. PO meds were held and pt went into A-Fib RVR. BB was resumed, but hypotensive. Dr. Riojas recommended switching Coreg to Toprol XL given hypotension. Started Toprol XL 02/10 and have uptitrated to 50mg daily. Pt remains tachycardic, and BP is borderline, unable to increase. Agree with primary team--load with IV Digoxin 500mcg once, then 250mg x 2, 6 hours apart. Will start daily PO digoxin 125mcg tomorrow AM. Renal function currently normal. Not a good candidate for amiodarone given his liver disease. Continue to follow. Qualifiers: Atrial fibrillation type: chronic Qualified Code(s): I48.2 - Chronic atrial fibrillation (2) Coronary artery disease Current Visit: Yes Status: Chronic Hx of CABG and PCI. Denies CP. Statin, BB. Recommend resuming 81mg ASA once okay with GI. Qualifiers: Coronary Disease-Associated Artery/Lesion type: bypass graft [place] vs. transplanted heart: [place] heart Associated angina: without angina Qualified Code(s): I25.810 - Atherosclerosis of coronary artery bypass graft(s) without angina pectoris (3) Systolic heart failure Current Visit: Yes Status: Chronic Chronic systolic CHF. Known EF 20%--ICD in place. Hx of dietary indiscretion. Currently near baseline, denies worsening dyspnea. Recommend resuming home Lasix and Aldactone once BP allows. Qualifiers: Heart failure chronicity: chronic Qualified Code(s): I50.22 - Chronic systolic (congestive) heart failure (4) Ischemic cardiomyopathy Current Visit: No Status: Chronic Known ICMP s/p ICD. EF 20%. Continue BB. Resume Aldactone once BP allows. Discussion w patient/family: The assessment and plan as outlined above was discussed with the patient and/or family members who expressed understanding and agreement. All questions were answered. Thank you for involving us in the care of your patient. Please call with any questions. I will discuss all the above with Dr. Riojas and make changes as necessary. Subjective Principal diagnosis: GI bleed, A-Fib Interval history: Pt denies acute cardiac complaints. Currently A-Fib RVR rate 100-120s. BP borderline. Objective Vital Signs, Last 4 Hours Temp Pulse Resp BP Pulse Ox 02/12/18 10:31 98.0 F 118 14 101/67 95 Vital Signs Temp Pulse Resp BP Pulse Ox 02/12/18 10:31 98.0 F 118 14 101/67 95 02/12/18 08:15 94 02/12/18 06:49 97.6 F 125 14 103/75 94 02/12/18 02:43 97.7 F 123 14 125/69 97 02/11/18 20:02 98.1 F 117 14 102/68 92 02/11/18 16:30 97.6 F 117 20 101/64 93 Intake and Output 02/11/18 02/12/18 02/12/18 23:59 07:59 15:59 Intake Total 240 / 240 0 / 0 240 / 240 Output Total 500 / 500 325 / 325 0 / 0 Balance -260 / -260 -325 / -325 240 / 240 Intake: Oral 240 / 240 0 / 0 240 / 240 Output: Urine 500 / 500 325 / 325 0 / 0 Other: Meal Lunch Lunch Percent of Meal Consumed 100% 80% # Bowel Movements 0 0 Weight 103 kg Blood Glucose* 229 128 176 Patient Weight 02/12/18 23:59 Weight 103 kg General: Conversant, No Apparent Distress HEENT: Atraumatic, Normocephaly, Mucus Membranes Moist Neck: No JVD, Normal carotid pulses Cardiac: Other (irregularly irregular) Lungs: Other (diminished) Neuro: Alert and responsive, No focal deficits noted Abdomen: Soft, Non-Tender Skin: No rashes noted on visualized skin Musculoskeletal: No Chest Wall Tenderness Extremities: No Clubbing, No Cyanosis, No Edema, Normal Pulses Results 02/12/18 05:18 02/11/18 05:50 Lab Results 02/12/18 05:18 Hgb 8.7 L Hct 28.3 L Short CBC 02/12/18 Range/Units 05:18 Hgb 8.7 L (12.9-16.9) g/dL Hct 28.3 L (37.5-50.1) % Active Medications Albuterol Sulfate (Albuterol Inhaler) 2 puff IH [id number] PRN PRN Reason: Shortness Of Breath Stop: 08/12/18 16:01 Dextrose/Water (Dextrose 50% (Syg)) 25 ml IVP AD PRN PRN Reason: Hypoglycemia Stop: 08/09/18 20:50 Digoxin (Lanoxin) 0.25 mg IVP Q6H GENARO Stop: 02/12/18 23:31 Digoxin (Lanoxin) 0.125 mg PO DAILY [facility] Stop: 08/15/18 09:01 Gabapentin (Neurontin) 400 mg PO TID [facility] Stop: 08/11/18 09:31 Last Admin: 02/12/18 08:52 Dose: 400 mg Glucagon (Glucagen) 1 mg IM ONCE PRN PRN Reason: Hypoglycemia Stop: 08/09/18 20:50 Glucose (Gluctose) 15 gm PO ONCE PRN PRN Reason: Hypoglycemia Stop: 08/09/18 20:50 Glucose (Gluctose) 30 gm PO ONCE PRN PRN Reason: Hypoglycemia Stop: 08/09/18 20:50 Dextrose (Dextrose 5%) 1,000 mls @ 100 mls/hr IVC .Q10H PRN PRN Reason: HYPOGLYCEMIA Stop: 08/09/18 20:50 Insulin Human Lispro (Humalog) 0 units SQ HS [facility]; Protocol Stop: 08/12/18 21:01 Last Admin: 02/11/18 22:58 Dose: 3 units Insulin Human Lispro (Humalog) 0 units SQ TIDAC [facility]; Protocol Stop: 08/12/18 11:31 Last Admin: 02/12/18 11:39 Dose: 2 units Metoprolol Succinate (Toprol Xl) 50 mg PO DAILY [facility] Stop: 08/14/18 09:01 Last Admin: 02/12/18 08:52 Dose: 50 mg Metoprolol Tartrate (Lopressor) 5 mg IVP Q6HR PRN PRN Reason: HR > 110 Stop: 08/11/18 09:19 Naloxone HCl (Narcan) 0.4 mg IVP Q2MIN PRN PRN Reason: SEE COMMENTS Stop: 08/09/18 20:46 Omeprazole (Prilosec) 20 mg PO BIDAC [facility]ARO; Protocol Stop: 08/12/18 16:31 Last Admin: 02/12/18 08:52 Dose: 20 mg Ondansetron HCl (Zofran) 4 mg IVP Q6HR PRN; Protocol PRN Reason: Nausea And Vomiting Stop: 08/09/18 22:39 Last Admin: 02/08/18 01:17 Dose: 4 mg Oxycodone HCl (Oxycodone Oral Conc) 2.5 mg SL Q6HR PRN; Protocol PRN Reason: Pain Stop: 08/10/18 01:39 Last Admin: 02/11/18 23:37 Dose: 2.5 mg Sucralfate (Carafate) 1 gm PO QIDAC [facility]O Stop: 08/13/18 08:16 Last Admin: 02/12/18 11:39 Dose: 1 gm Warfarin Sodium (Coumadin Perpt) 1 each PO DAILY@1800 PRN PRN Reason: SEE COMMENTS Stop: 08/14/18 18:01 - EKG Interpretation EKG results cardiology: other (12 hr tele AVG HR 11, A-Flutter) - VTE Reasons for not Prescribing Prophylaxis: Medical contraindication Consult Discharge Plan - Plan Referrals: NONE,PCP [Primary Care Provider] - Prescriptions: Metoprolol XL (24 HR) Succ [Toprol Xl] 50 mg PO DAILY #30 tab.er.24h Omeprazole [PriLOSEC] 20 mg PO BIDAC #60 capsule.
[2018-02-12 16:09] LABS: INR 1.7; Prothrombin Time 18.6 Seconds (9.4-12.1)
[2018-02-12] MEDS ORDERED: Warfarin perPT PO PRN (18:00)
[2018-02-12] MEDS ORDERED: *HR* Warfarin 2.5 MG TABLET PO ONE (18:00)
[2018-02-12] MEDS: *HR* Digoxin 0.5 MG/2 ML AMPUL IVP SCH (18:58)
--- NOTE | 2018-02-12 20:59 | Internal Med Progress Note ---
Hospitalist Progress Note - Encounter Date of Encounter: 02/12/18 Time of Encounter: 19:00 - Subjective Interval History: SUBJECTIVE: The patient feels good. He complains of weakness. He gets short of breath, when walking. Denies chest pain. Denies coughing and wheezing. Denies abdominal pain, nausea and vomiting. We have not seen him passing blood recently. He did have black stools shortly before this admission. The patient had upper and lower endoscopy done by general surgery the day before yesterday. OBJECTIVE: Skin: Free of rash and discoloration. ENMT: Oral/pharyngeal mucosa is normal in appearance. Eyes: Sclera is white. There is no discharge from eyes. Respiratory: Normal breath sounds; no crackles or wheezes. CV: Heart is irregularly irregular with no audible murmur. GI: Abdomen is soft and not tender. There is no palpable mass or visceromegaly. Neuro: There is no focal deficits. ADDITIONAL DATA: Hemoglobin is 8.7; the same yesterday. ASSESSMENT AND PLAN: Atrial fibrillation with RVR. His heart rate is around 120-130. We will continue Toprol-XL. I will start him on digoxin, as I cannot increase his dose of Toprol-XL any more. His ejection fraction is only 20%. His blood pressure is on low side. The patient agreed for treatment with warfarin. We will started today. GI bleeding/acute blood loss anemia. Upper endoscopy showed multiple gastric ulcers, nonbleeding. Lower endoscopy showed diverticulosis of colon with no visible source for bleeding. We will continue Prilosec and Carafate. We appreciate help from general surgery. Coronary artery disease/chronic systolic heart failure (ejection fraction of 20%). Will continue Toprol-XL. He is not a candidate for INGA inhibitor/ARB due to his low blood pressure. We will use diuretics sparingly due to his recent history of GI bleeding. DISPOSITION: I hope to find out, what kind of response he has to added digoxin. If his heart rate is under control, he will be discharged home. - Exam Vitals: Temp Pulse Resp BP Pulse Ox 98.0 F 86 16 104/69 95 02/12/18 18:33 02/12/18 18:33 02/12/18 18:33 02/12/18 18:33 02/12/18 18:33 Exam: xx - Assessment and Plan (1) Chronic atrial fibrillation with RVR Current Visit: Yes Status: Acute (2) GI bleeding Current Visit: Yes Status: Acute (3) Anemia due to acute blood loss Current Visit: Yes Status: Acute (4) Chronic systolic heart failure Current Visit: Yes Status: Chronic (5) Coronary artery disease Current Visit: Yes Status: Chronic (6) COPD (chronic obstructive pulmonary disease) Current Visit: Yes Status: Chronic - Time Spent with Patient Total time spent is greater than 50% in coordination of care (as documented) at patient's floor/unit and/or counseling patient: 25 - 35 minutes Plan of Care Discussed with: patient (and nurse..) Internal Medicine: Result - Labs CBC & Chem 7: 02/12/18 05:18 02/11/18 05:50 Labs: Short CBC 02/12/18 Range/Units 05:18 Hgb 8.7 L (12.9-16.9) g/dL Hct 28.3 L (37.5-50.1) % - ABG Interpretation ABG results: PT/INR, D-dimer PT 18.6 Seconds (9.4-12.1) H 02/12/18 15:48 - VTE Reasons for not Prescribing Prophylaxis: Medical contraindication Consult Discharge Plan - Plan Referrals: NONE,PCP [Primary Care Provider] - Prescriptions: Metoprolol XL (24 HR) Succ [Toprol Xl] 50 mg PO DAILY #30 tab.er.24h Omeprazole [PriLOSEC] 20 mg PO BIDAC #60 capsule.dr (2) GI bleeding Qualifiers: GI bleed type/associated pathology: unspecified gastrointestinal hemorrhage type Qualified Code(s): K92.2 - Gastrointestinal hemorrhage, unspecified (5) Coronary artery disease Qualifiers: Coronary Disease-Associated Artery/Lesion type: bypass graft [place] vs. transplanted heart: [place] heart Associated angina: without angina Qualified Code(s): I25.810 - Atherosclerosis of coronary artery bypass graft(s) without angina pectoris
[2018-02-13] MEDS: *HR* Digoxin 0.5 MG/2 ML AMPUL IVP SCH (00:34)
[2018-02-13] MEDS: OXYCODONE Oral CONC 10 MG/0.5 ML ORAL.SYG SL PRN (03:17)
[2018-02-13 04:11] LABS: INR 1.5; Prothrombin Time 17.2 Seconds (9.4-12.1)
[2018-02-13] MEDS: Sucralfate 1 GM TABLET PO SCH (06:42)
--- NOTE | 2018-02-13 07:55 | Electrocardiograph Report ---
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
[2018-02-13] MEDS: Gabapentin 400 MG CAPSULE PO SCH (08:29)
[2018-02-13] MEDS: Insulin LISPRO 300 UNITS/3 ML VIAL SQ SCH (08:29)
[2018-02-13] MEDS: Metoprolol XL (24 HR) Succ 25 MG TAB.ER.24H PO SCH (08:29)
[2018-02-13] MEDS ORDERED: *HR* Digoxin 0.125 MG TABLET PO SCH (09:00)
[2018-02-13] MEDS ORDERED: *HR* Digoxin 0.25 MG TABLET PO SCH (09:00)
[2018-02-13 10:17] VITALS: BP 103/69
--- NOTE | 2018-02-13 10:53 | Discharge Summary ---
- NOTES TO OUTPATIENT PROVIDER Notes to Outpatient Provider: STARTED ON COUMADIN INSTEAD OF ELIQUIS. PRO TIME ON 02/14 AND 02/17. THEN, MONTHLY PLUS "IF NEEDED". CBC AND DIGOXIN -- MONTHLY; STARTING ON 02/17.. Orders not resulted at time of discharge: Pending orders 02/14/18 04:00 INR/PT [Prothrombin Time INR] [COAG] AM 0400 02/15/18 04:00 INR/PT [Prothrombin Time INR] [COAG] AM 0400 02/16/18 04:00 INR/PT [Prothrombin Time INR] [COAG] AM 0400 02/17/18 04:00 INR/PT [Prothrombin Time INR] [COAG] AM 0400 Date of Encounter: 02/13/18 Time of Encounter: 09:50 - Discharge Diagnosis (1) GI bleeding Priority: Primary Status: Acute Qualifiers: GI bleed type/associated pathology: unspecified gastrointestinal hemorrhage type Qualified Code(s): K92.2 - Gastrointestinal hemorrhage, unspecified (2) Anemia due to acute blood loss Priority: Primary Status: Acute (3) Chronic atrial fibrillation with RVR Priority: Primary Status: Acute (4) Chronic systolic heart failure Priority: Primary Status: Chronic (5) Coronary artery disease Priority: Secondary Status: Chronic Qualifiers: Coronary Disease-Associated Artery/Lesion type: bypass graft [place] vs. transplanted heart: [place] heart Associated angina: without angina Qualified Code(s): I25.810 - Atherosclerosis of coronary artery bypass graft(s) without angina pectoris (6) COPD (chronic obstructive pulmonary disease) Priority: Secondary Status: Chronic Qualifiers: Emphysema type: unspecified Qualified Code(s): J43.9 - Emphysema, unspecified Hospital course: HOSPITAL COURSE: The patient is a 67-year-old man. We admitted him after he had developed GI bleeding with acute blood loss anemia. His hemoglobin was initially 9.7. The patient was transfused with 2 units of packed red blood cells. The patient has underlying atrial fibrillation; was taking Eliquis. He has also underlying CP systolic heart failure; ejection fraction of 20%. We stopped his Eliquis. We presented him to general surgery. The patient underwent upper and lower endoscopy. We found him to have multiple gastric and duodenal ulcers, nonbleeding. We found him to have diverticulosis of colon, without any evidence for recent bleeding. The patient was put on twice a day proton pump inhibitor and Carafate. We did not observe any GI bleeding during this hospitalization. His hemoglobin at discharge was 8.7. The patient had A. fib with fast ventricular rate; not controlled with pretty good dose of metoprolol and Cardizem CD. I started him on digoxin. His rate was under control on the day of discharge. After talking about the risks and benefits and we started this patient on oral Coumadin. His hemoglobin will be checked monthly; together with his pro time. CONDITION AT DISCHARGE: The patient feels good. Denies abdominal pain, nausea and vomiting. Denies chest pain and difficulty breathing. He has not observed any red or black discoloration of his stool recently. Skin: Free of rash and discoloration. Respiratory: Normal breath sounds with no crackles and wheezes bilaterally. CV: Heart is regular with no gallop or murmur. GI: Abdomen is flat and soft with no palpable mass or visceromegaly. Neuro exam: There is no focal deficits. Normal speech, swallowing and gait. SEE DISCHARGE ORDERS/MEDICATIONS.. Discharge discussed with: patient, nurse - Time Spent with Patient Total time spent providing and/or coordinating discharge services: Greater than 30 minutes (45 minutes..) - Discharge Medications Prescriptions: Digoxin [Lanoxin] 0.125 mg PO DAILY #30 tablet Metoprolol XL (24 HR) Succ [Toprol Xl] 50 mg PO DAILY #30 tab.er.24h Omeprazole [PriLOSEC] 20 mg PO BIDAC #60 capsule. Warfarin [Coumadin] 2.5 mg PO 1800 #30 tablet Home Medications: Albuterol Sulfate [Albuterol Inhaler] 2 puff IH Q4HR PRN #1 hfa.aer.ad 11/25/17 [Rx] Atorvastatin Calcium [Lipitor] 80 mg PO HS 12/18/17 [History] Gabapentin [Neurontin] 400 mg PO TID 01/18/18 [History] Spironolactone [Aldactone] 100 mg PO DAILY 01/18/18 [History] Furosemide [Lasix] 40 mg PO DAILY 02/07/18 [History] HYDROcodone/Acet 5/325 mg [[place] 5-325 mg] 1 tab PO Q6H PRN 02/07/18 [History] Lactulose 30 ml PO BID 02/07/18 [History] Magnesium Hydroxide [Milk of Magnesia] 30 ml PO DAILY PRN 02/07/18 [History] Ondansetron HCl [Zofran] 4 mg PO Q8HR PRN 02/07/18 [History] Acetaminophen [Tylenol Arthritis] 650 mg PO Q6H PRN 02/08/18 [History] Aspirin [Adult Aspirin Regimen] 81 mg PO DAILY 02/08/18 [History] Cetirizine HCl [All Day Allergy] 10 mg PO DAILY PRN 02/08/18 [History] Cholecalciferol (D-3) [Vitamin D] 2,000 unit PO DAILY 02/08/18 [History] Metoprolol XL (24 HR) Succ [Toprol Xl] 50 mg PO DAILY #30 tab.er.24h 02/11/18 [Rx] Omeprazole [PriLOSEC] 20 mg PO BIDAC #60 capsule.dr 02/11/18 [Rx] Digoxin [Lanoxin] 0.125 mg PO DAILY #30 tablet 02/13/18 [Rx] Warfarin [Coumadin] 2.5 mg PO 1800 #30 tablet 02/13/18 [Rx] Allergies/Adverse Reactions: Allergy/AdvReac Type Severity Reaction Status Date / Time empagliflozin AdvReac See Verified 02/08/18 17:02 [From Jardiance] Comments Date of admission: 02/08/18 18:11 Primary care physician: PCP NONE Consults: 02/07/18 22:40 Consult to Gastroenterology [CONS] Routine Consulting Provider: Gastroenterology Maggi Reason for Consult: Suspected GIB, black stool x 1 wk Call Completed: No 02/09/18 13:13 Consult to Cardiology [CONS] Routine Comment: Consulting Provider: Cardiology Maggi Reason for Consult: Afib, h/o CAD Call Completed: Yes 02/10/18 15:38 Consult to Occupational Therapy [CONS] Routine Comment: Evaluate, develop and implement POC Reason for Consult: Assess discharge needs Does patient have active BEDREST order?: Yes Is patient medically & hemodynamically stable?: Yes Consult to Physical Therapy [CONS] Routine Comment: Evaluate, develop and implement POC Reason for Consult: Assess strenth and discharge needs. Does patient have active BEDREST order?: No Is patient medically & hemodynamically stable?: Yes Discharging clinician: Phillip Reed Anticipated date of discharge: 02/13/18 - Constitutional Vitals: Temp Pulse Resp BP Pulse Ox 97.6 F 66 18 95/58 97 02/13/18 06:33 02/13/18 06:33 02/13/18 06:33 02/13/18 06:33 02/13/18 06:33 General appearance: Present: A&O X 3, no acute distress, answers questions appropriately Exam: xx - Patient Status Disposition: Home Health Service Condition: Fair Overall status at discharge: patient is progressing back to baseline - Discharge Instructions Follow Up With: Esther Lamar, VIRGILIO [Advanced Practice Nurse] - Sadie Mcknight CNP [Advanced Practice Nurse] - 02/21/18 11:00 am Additional Instructions: STARTED ON COUMADIN INSTEAD OF ELIQUIS. PRO TIME ON 02/14 AND 02/17. THEN, MONTHLY PLUS "IF NEEDED". CBC AND DIGOXIN -- MONTHLY; STARTING ON 02/17.. BLOOD TESTING RESULTS -- TO PCP.. - Diet and Activity Activity: resume usual activities as tolerated Diet: diabetic diet - VTE Reasons for not Prescribing Prophylaxis: Medical contraindication (GI BLEED..) Deep Vein Thrombosis/Pulmonary Embolism Present on Admission: No
--- NOTE | 2018-02-13 11:24 | Cardiology Progress Note ---
Date of Encounter: 02/13/18 Time of Encounter: 10:55 Assessment and Plan (1) Atrial fibrillation Current Visit: Yes Status: Chronic Known A-Fib/Flutter initially diagnosed 06/2017 persistent since that time. Home med Coreg 18.75mg BID. Was anticoagulated on Eliquis, presented with GI bleeding and stopped. High CVA risk--[id number] 5 (Age, HTN, CAD, CHF, DM). Primary team recommended Coumadin and has started inpt. PO meds were held and pt went into A-Fib RVR. BB was resumed, but hypotensive. Dr. Riojas recommended switching Coreg to Toprol XL given hypotension. Started Toprol XL 02/10 and have uptitrated to 50mg daily. Pt remained tachycardic with borderline BP, unable to increase. Loaded with IV Digoxin yesterday and started PO digoxin 125mcg today. Renal function currently normal. Not a good candidate for amiodarone given his liver disease. Pt is now rate controlled. 12 hr tele AVG HR 76, A-Flutter. Cardiology signing off. Reconsult PRN. Will coordinate close outpt cardiology follow-up in 1-2 weeks. Qualifiers: Atrial fibrillation type: chronic Qualified Code(s): I48.2 - Chronic atrial fibrillation (2) Coronary artery disease Current Visit: Yes Status: Chronic Hx of CABG and PCI. Denies CP. Statin, BB. Recommend resuming 81mg ASA once okay with GI. Qualifiers: Coronary Disease-Associated Artery/Lesion type: bypass graft [place] vs. transplanted heart: [place] Associated angina: without angina Qualified Code(s): I25.810 - Atherosclerosis of coronary artery bypass graft(s) without angina pectoris (3) Systolic heart failure Current Visit: Yes Status: Chronic Chronic systolic CHF. Known EF 20%--ICD in place. Hx of dietary indiscretion. Currently near baseline, denies worsening dyspnea. Recommend resuming home Lasix and Aldactone once BP allows. Qualifiers: Heart failure chronicity: chronic Qualified Code(s): I50.22 - Chronic systolic (congestive) heart failure (4) Ischemic cardiomyopathy Current Visit: No Status: Chronic Known ICMP s/p ICD. EF 20%. Continue BB. Resume Aldactone once BP allows. Discussion w patient/family: The assessment and plan as outlined above was discussed with the patient and/or family members who expressed understanding and agreement. All questions were answered. Thank you for involving us in the care of your patient. Please call with any questions. I will discuss all the above with Dr. Riojas and make changes as necessary. Subjective Principal diagnosis: GI bleed, A-Fib Interval history: Pt denies acute cardiac complaints. Loaded with IV Digoxin yesterday, now rate controlled. 12 hr tele AVG HR 76, A-Flutter. Objective Vital Signs, Last 4 Hours Temp Pulse Resp BP Pulse Ox 02/13/18 10:15 97.6 F 63 15 103/69 96 Vital Signs Temp Pulse Resp BP Pulse Ox 02/13/18 10:15 97.6 F 63 15 103/69 96 02/13/18 06:33 97.6 F 66 18 95/58 97 02/13/18 04:13 97.4 F L 85 16 96/56 97 02/12/18 18:33 98.0 F 86 16 104/69 95 Intake and Output 02/12/18 02/13/18 02/13/18 23:59 07:59 15:59 Intake Total 240 / 240 120 / 120 360 / 360 Output Total 600 / 600 600 / 600 300 / 300 Balance -360 / -360 -480 / -480 60 / 60 Intake: Oral 240 / 240 120 / 120 360 / 360 Output: Urine 600 / 600 600 / 600 300 / 300 Other: Meal Dinner Breakfast Percent of Meal Consumed 80% 100% # Voids 1 # Bowel Movements 0 Weight 103.2 kg Blood Glucose* 177 123 123 Patient Weight 02/13/18 23:59 Weight 103.2 kg General: Conversant, No Apparent Distress HEENT: Atraumatic, Normocephaly, Mucus Membranes Moist Neck: Normal carotid pulses Cardiac: Other (irregular) Lungs: Other (diminished) Neuro: Alert and responsive, No focal deficits noted Abdomen: Soft, Non-Tender Skin: No rashes noted on visualized skin Musculoskeletal: No Chest Wall Tenderness Extremities: No Clubbing, No Cyanosis, No Edema, Normal Pulses Results 02/12/18 05:18 02/11/18 05:50 Lab Results 02/12/18 02/13/18 15:48 03:32 INR 1.7 1.5 Active Medications Albuterol Sulfate (Albuterol Inhaler) 2 puff IH [id number] PRN PRN Reason: Shortness Of Breath Stop: 08/12/18 16:01 Dextrose/Water (Dextrose 50% (Syg)) 25 ml IVP AD PRN PRN Reason: Hypoglycemia Stop: 08/09/18 20:50 Digoxin (Lanoxin) 0.125 mg PO DAILY [facility] Stop: 08/15/18 09:01 Last Admin: 02/13/18 08:29 Dose: 0.125 mg Gabapentin (Neurontin) 400 mg PO TID [facility] Stop: 08/11/18 09:31 Last Admin: 02/13/18 08:29 Dose: 400 mg Glucagon (Glucagen) 1 mg IM ONCE PRN PRN Reason: Hypoglycemia Stop: 08/09/18 20:50 Glucose (Gluctose) 15 gm PO ONCE PRN PRN Reason: Hypoglycemia Stop: 08/09/18 20:50 Glucose (Gluctose) 30 gm PO ONCE PRN PRN Reason: Hypoglycemia Stop: 08/09/18 20:50 Dextrose (Dextrose 5%) 1,000 mls @ 100 mls/hr IVC .Q10H PRN PRN Reason: HYPOGLYCEMIA Stop: 08/09/18 20:50 Insulin Human Lispro (Humalog) 0 units SQ HS [facility]; Protocol Stop: 08/12/18 21:01 Last Admin: 02/12/18 22:20 Dose: Not Given Insulin Human Lispro (Humalog) 0 units SQ TIDAC [facility]; Protocol Stop: 08/12/18 11:31 Last Admin: 02/13/18 08:29 Dose: Not Given Metoprolol Succinate (Toprol Xl) 50 mg PO DAILY [facility] Stop: 08/14/18 09:01 Last Admin: 02/13/18 08:29 Dose: 50 mg Metoprolol Tartrate (Lopressor) 5 mg IVP Q6HR PRN PRN Reason: HR > 110 Stop: 08/11/18 09:19 Naloxone HCl (Narcan) 0.4 mg IVP Q2MIN PRN PRN Reason: SEE COMMENTS Stop: 08/09/18 20:46 Omeprazole (Prilosec) 20 mg PO BIDAC [facility]; Protocol Stop: 08/12/18 16:31 Last Admin: 02/13/18 06:42 Dose: 20 mg Ondansetron HCl (Zofran) 4 mg IVP Q6HR PRN; Protocol PRN Reason: Nausea And Vomiting Stop: 08/09/18 22:39 Last Admin: 02/08/18 01:17 Dose: 4 mg Oxycodone HCl (Oxycodone Oral Conc) 2.5 mg SL Q6HR PRN; Protocol PRN Reason: Pain Stop: 08/10/18 01:39 Last Admin: 02/13/18 03:17 Dose: 2.5 mg Sucralfate (Carafate) 1 gm PO QIDAC GENARO Stop: 08/13/18 08:16 Last Admin: 02/13/18 06:42 Dose: 1 gm Warfarin Sodium (Coumadin Perpt) 1 each PO DAILY@1800 PRN PRN Reason: SEE COMMENTS Stop: 08/14/18 18:01 - EKG Interpretation EKG results cardiology: other (12 hr tele AVG HR 76, A-Flutter) - VTE Reasons for not Prescribing Prophylaxis: Medical contraindication (GI BLEED..) Deep Vein Thrombosis/Pulmonary Embolism Present on Admission: No Consult Discharge Plan - Plan Additional Instructions: STARTED ON COUMADIN INSTEAD OF ELIQUIS. PRO TIME ON 02/14 AND 02/17. THEN, MONTHLY PLUS "IF NEEDED". CBC AND DIGOXIN -- MONTHLY; STARTING ON 02/17.. BLOOD TESTING RESULTS -- TO PCP.. Referrals: NONE,PCP [Primary Care Provider] - Prescriptions: Digoxin [Lanoxin] 0.125 mg PO DAILY #30 tablet Metoprolol XL (24 HR) Succ [Toprol Xl] 50 mg PO DAILY #30 tab.er.24h Omeprazole [PriLOSEC] 20 mg PO BIDAC #60 capsule. Warfarin [Coumadin] 2.5 mg PO 1800 #30 tablet
== END 2018-02-13 15:05 | disposition home health service (06) | DRG 378 ==
LOC: 3ANU 17:31 → INTOOBSV 17:31 → SUATTDRO 02-08 18:11
PROVIDERS: ADMIT Internal Medicine; ATTEND Internal Medicine
PROC: ENDOEBX (2018-02-10 15:30)

== ENCOUNTER 2021-10-27 15:11 | Inpatient (IN) ==
[2021-10-27 16:23] LABS: Basophils # 0.1 K/mcL (0.0-0.2); Basophils % 1.3 %; Eosinophils % 0.9 %; Hematocrit 52.6 % (37.5-50.1); Hemoglobin 16.7 g/dL (12.9-16.9); Immature Granulocytes % 0.2 % (0-4); Lymphocytes % 20.7 %; Mean Corpuscular HGB Conc 31.7 g/dL (31.6-35.5); Mean Corpuscular Volume 91.3 fL (83.0-100.0); Mean Platelet Volume 10.4 fL (9.4-12.4); Monocytes # 0.5 K/mcL (0.0-1.3); Monocytes % 11.5 %; Neutrophils # 3.1 K/mcL (1.6-8.9); Platelet Count 212 K/mcL (140-400); Red Blood Count 5.76 M/mcL (4.19-5.50); Red Cell Distribution Width 17.1 % (11.5-14.5); Segmented Neutrophils % 65.4 %; White Blood Count 4.7 K/mcL (4.3-11.1)
[2021-10-27 16:44] LABS: BUN/Creatinine Ratio 12 (6-26); Blood Urea Nitrogen 21 mg/dL (8-23); Calcium 9.1 mg/dL (8.6-10.3); Carbon Dioxide 29 mEq/L (23-29); Chloride 102 mEq/L (98-107); Glucose 87 mg/dL (70-105); Osmolality,Calculated 290 (280-300); Potassium 4.4 mEq/L (3.5-5.1); Sodium 139 mEq/L (136-145); eGFR For African Americans 48 (> 60); eGFR For Non-African Americans 39 (> 60)
[2021-10-27 16:45] LABS: Troponin I < 0.03 ng/mL (< 0.04)
[2021-10-27] MEDS ORDERED: Furosemide 40 MG/4 ML VIAL IVP ONE (20:11)
[2021-10-27 20:47] LABS: INR 3.9
[2021-10-27 20:49] LABS: Activated Partial Thrombo Time 43.6 Seconds (26.0-36.0)
[2021-10-27 20:50] LABS: Albumin 3.6 g/dL (3.5-5.7); Albumin/Globulin Ratio 1.2 (1.1-2.2); Bilirubin,Direct 0.7 mg/dL (0.0-0.2); Bilirubin,Total 1.7 mg/dL (0.3-1.0); Globulin 2.9 g/dL (2.4-3.5); Total Protein 6.5 g/dL (6.4-8.9)
[2021-10-27 20:51] LABS: Prothrombin Time 43.3 Seconds (9.4-12.1)
[2021-10-27 22:51] LABS: Bilirubin,Urine Negative (Negative); Blood,Urine Negative (Negative); Clarity,Urine Clear (Clear); Color,Urine Colorless (Yellow); Glucose,Urine (UA) Normal (Normal); Ketones,Urine Negative (Negative); Leukocyte Esterase,Urine Negative (Negative); Nitrite,Urine Negative (Negative); PH,Urine 6.5 pH Units (5.0-8.0); Protein,Urine Negative (Neg-Trace); Specific Gravity,Urine 1.008 (1.010-1.025); Urobilinogen,Urine Normal (Normal)
[2021-10-27] MEDS ORDERED: *HR* HYDROcodone/Acet 5/325 mg TABLET PO PRN (22:52)
[2021-10-27] MEDS ORDERED: Ondansetron 4 MG/2 ML VIAL IVP PRN (22:52)
[2021-10-27] MEDS ORDERED: *HR* Promethazine 25 MG/ML VIAL IM PRN (22:52)
[2021-10-27] MEDS ORDERED: Naloxone 0.4 MG/ML INJ IVP PRN (22:52)
[2021-10-27] MEDS ORDERED: Melatonin 3 MG TABLET PO PRN (22:52)
[2021-10-27] MEDS ORDERED: *HR* OxyCODONE Immed Rel 5 MG TABLET PO PRN (22:52)
[2021-10-27 23:03] LABS: Protein/Creatinine Ratio,Urine 0.3 mg/mg (0.00-0.20)
[2021-10-28 05:09] LABS: Basophils # 0.1 K/mcL (0.0-0.2); Basophils % 1.6 %; Eosinophils # 0.1 K/mcL (0.0-0.6); Eosinophils % 2.9 %; Hematocrit 48.4 % (37.5-50.1); Hemoglobin 15.6 g/dL (12.9-16.9); Immature Granulocytes % 0.2 % (0-4); Lymphocytes # 0.9 K/mcL (0.6-4.6); Mean Corpuscular HGB Conc 32.2 g/dL (31.6-35.5); Mean Platelet Volume 10.3 fL (9.4-12.4); Monocytes # 0.6 K/mcL (0.0-1.3); Monocytes % 13.3 %; Neutrophils # 2.8 K/mcL (1.6-8.9); Platelet Count 209 K/mcL (140-400); Red Blood Count 5.38 M/mcL (4.19-5.50); Red Cell Distribution Width 16.7 % (11.5-14.5); White Blood Count 4.5 K/mcL (4.3-11.1)
[2021-10-28 05:28] LABS: Potassium 3.8 mEq/L (3.5-5.1)
[2021-10-28] MEDS: Furosemide 40 MG/4 ML VIAL IVP SCH ×3 (05:39→20:29)
[2021-10-28 05:41] LABS: Prothrombin Time 32.8 Seconds (9.4-12.1)
[2021-10-28] MEDS: Albumin 25% 25gram/100mL 25 GM/100 ML IV.SOLN IVPB SCH ×3 (06:40→18:32)
[2021-10-28] MEDS: Aspirin Enteric Coated 81 MG Tablet PO SCH (11:32)
[2021-10-28] MEDS: Lactulose Oral Soln 20 GM/30 ML UDC PO SCH ×2 (11:34→20:30)
[2021-10-28] MEDS ORDERED: Warfarin perPT PO PRN (18:00)
[2021-10-28] MEDS ORDERED: *HR* Warfarin 0.5 MG TABLET PO ONE (18:00)
[2021-10-29 01:31] LABS: INR 2.5; Prothrombin Time 27.3 Seconds (9.4-12.1)
[2021-10-29 01:36] LABS: Magnesium 2.1 mg/dL (1.6-2.6); Potassium 3.5 mEq/L (3.5-5.1)
[2021-10-29] MEDS: Metoprolol XL (24 HR) Succ 50 MG TAB.ER.24H PO SCH (09:29)
[2021-10-29] MEDS: Aspirin Enteric Coated 81 MG Tablet PO SCH (09:29)
[2021-10-29] MEDS: Furosemide 40 MG/4 ML VIAL IVP SCH ×2 (09:30→17:06)
[2021-10-29] MEDS: Lactulose Oral Soln 20 GM/30 ML UDC PO SCH ×2 (09:30→20:36)
[2021-10-29] MEDS ORDERED: *HR* Warfarin 1 MG TABLET PO ONE (18:00)
[2021-10-29] MEDS ORDERED: *HR* Warfarin 0.5 MG TABLET PO ONE (18:00)
[2021-10-30 06:32] LABS: INR 2.2
[2021-10-30 06:54] LABS: BUN/Creatinine Ratio 15 (6-26); Blood Urea Nitrogen 19 mg/dL (8-23); Carbon Dioxide 25 mEq/L (23-29); Chloride 101 mEq/L (98-107); Glucose 78 mg/dL (70-105); Osmolality,Calculated 289 (280-300); Potassium 3.6 mEq/L (3.5-5.1); Sodium 139 mEq/L (136-145); eGFR For African Americans > 60 (> 60); eGFR For Non-African Americans 54 (> 60)
[2021-10-30] MEDS: Lactulose Oral Soln 20 GM/30 ML UDC PO SCH ×2 (09:34→20:33)
[2021-10-30] MEDS: Aspirin Enteric Coated 81 MG Tablet PO SCH (09:34)
[2021-10-30] MEDS: Metoprolol XL (24 HR) Succ 50 MG TAB.ER.24H PO SCH (09:34)
[2021-10-30] MEDS: Furosemide 40 MG/4 ML VIAL IVP SCH ×2 (09:34→16:17)
[2021-10-30] MEDS: Acetaminophen 325 MG TABLET PO PRN (12:02)
[2021-10-30] MEDS: Gabapentin 300 MG CAPSULE PO SCH ×2 (16:17→20:33)
[2021-10-30] MEDS ORDERED: *HR* Warfarin 2.5 MG TABLET PO ONE (18:00)
[2021-10-31 05:27] LABS: Calcium 9.3 mg/dL (8.6-10.3); Potassium 3.7 mEq/L (3.5-5.1)
[2021-10-31 05:32] LABS: Prothrombin Time 22.7 Seconds (9.4-12.1)
[2021-10-31] MEDS: Aspirin Enteric Coated 81 MG Tablet PO SCH (07:30)
[2021-10-31] MEDS: Gabapentin 300 MG CAPSULE PO SCH ×3 (07:30→20:39)
[2021-10-31] MEDS: Metoprolol XL (24 HR) Succ 50 MG TAB.ER.24H PO SCH (07:30)
[2021-10-31] MEDS: Lactulose Oral Soln 20 GM/30 ML UDC PO SCH ×2 (07:31→20:40)
[2021-10-31] MEDS: Furosemide 40 MG/4 ML VIAL IVP SCH ×2 (07:31→17:14)
[2021-10-31] MEDS: Acetaminophen 325 MG TABLET PO PRN (14:43)
[2021-10-31] MEDS ORDERED: Furosemide 40 MG TABLET PO SCH (17:00)
[2021-10-31] MEDS ORDERED: *HR* Warfarin 2.5 MG TABLET PO ONE (18:00)
[2021-11-01 03:03] LABS: INR 2.3; Prothrombin Time 25.7 Seconds (9.4-12.1)
[2021-11-01 04:06] LABS: BUN/Creatinine Ratio 13 (6-26); Blood Urea Nitrogen 18 mg/dL (8-23); Carbon Dioxide 29 mEq/L (23-29); Chloride 99 mEq/L (98-107); Glucose 144 mg/dL (70-105); Osmolality,Calculated 286 (280-300); Potassium 3.5 mEq/L (3.5-5.1); Sodium 136 mEq/L (136-145); eGFR For African Americans > 60 (> 60); eGFR For Non-African Americans 50 (> 60)
[2021-11-01] MEDS: Lactulose Oral Soln 20 GM/30 ML UDC PO SCH ×2 (07:48→19:59)
[2021-11-01] MEDS: Furosemide 40 MG/4 ML VIAL IVP SCH (07:48)
[2021-11-01] MEDS: Aspirin Enteric Coated 81 MG Tablet PO SCH (07:49)
[2021-11-01] MEDS: Metoprolol XL (24 HR) Succ 50 MG TAB.ER.24H PO SCH (07:49)
[2021-11-01] MEDS: Gabapentin 300 MG CAPSULE PO SCH ×3 (07:49→19:59)
[2021-11-01] MEDS: Albumin 25% 25gram/100mL 25 GM/100 ML IV.SOLN IVPB SCH ×3 (08:33→23:28)
[2021-11-01] MEDS: Furosemide 40 MG TABLET PO SCH (17:54)
[2021-11-01] MEDS ORDERED: *HR* Warfarin 2.5 MG TABLET PO ONE (18:00)
[2021-11-02 03:27] LABS: Basophils # 0.1 K/mcL (0.0-0.2); Basophils % 1.9 %; Eosinophils # 0.1 K/mcL (0.0-0.6); Eosinophils % 1.4 %; Hematocrit 48.1 % (37.5-50.1); Hemoglobin 15.5 g/dL (12.9-16.9); Lymphocytes # 0.9 K/mcL (0.6-4.6); Lymphocytes % 20.9 %; Mean Corpuscular HGB Conc 32.2 g/dL (31.6-35.5); Mean Corpuscular Volume 90.1 fL (83.0-100.0); Mean Platelet Volume 10.8 fL (9.4-12.4); Monocytes # 0.6 K/mcL (0.0-1.3); Monocytes % 14.9 %; Neutrophils # 2.6 K/mcL (1.6-8.9); Platelet Count 171 K/mcL (140-400); Red Blood Count 5.34 M/mcL (4.19-5.50); Segmented Neutrophils % 60.9 %; White Blood Count 4.3 K/mcL (4.3-11.1)
[2021-11-02 03:50] LABS: Calcium 9.6 mg/dL (8.6-10.3); Magnesium 2.2 mg/dL (1.6-2.6); Phosphorous 2.6 mg/dL (2.7-4.5); Potassium 3.8 mEq/L (3.5-5.1)
[2021-11-02] MEDS: Lactulose Oral Soln 20 GM/30 ML UDC PO SCH ×2 (08:36→21:09)
[2021-11-02] MEDS: Gabapentin 300 MG CAPSULE PO SCH ×3 (08:37→20:41)
[2021-11-02] MEDS: Aspirin Enteric Coated 81 MG Tablet PO SCH (08:37)
[2021-11-02] MEDS: Metoprolol XL (24 HR) Succ 50 MG TAB.ER.24H PO SCH (08:37)
[2021-11-02] MEDS: Furosemide 40 MG TABLET PO SCH ×2 (08:37→16:19)
[2021-11-02] MEDS: Albumin 25% 25gram/100mL 25 GM/100 ML IV.SOLN IVPB SCH ×3 (08:38→23:50)
[2021-11-02 10:52] LABS: INR 2.7; Prothrombin Time 29.8 Seconds (9.4-12.1)
[2021-11-02] MEDS ORDERED: *HR* Warfarin 2 MG TABLET PO ONE (18:00)
[2021-11-02 23:02] VITALS: TEMP 97.5
[2021-11-03 03:34] LABS: Prothrombin Time 33.1 Seconds (9.4-12.1)
[2021-11-03 03:49] LABS: BUN/Creatinine Ratio 15 (6-26); Blood Urea Nitrogen 20 mg/dL (8-23); Calcium 9.5 mg/dL (8.6-10.3); Carbon Dioxide 26 mEq/L (23-29); Chloride 99 mEq/L (98-107); Glucose 90 mg/dL (70-105); Magnesium 2.2 mg/dL (1.6-2.6); Osmolality,Calculated 284 (280-300); Phosphorous 2.4 mg/dL (2.7-4.5); Potassium 3.5 mEq/L (3.5-5.1); Sodium 136 mEq/L (136-145); eGFR For African Americans > 60 (> 60); eGFR For Non-African Americans 54 (> 60)
[2021-11-03 08:10] VITALS: BP 128/86; PULSE 83; O2SAT 95
[2021-11-03] MEDS: Gabapentin 300 MG CAPSULE PO SCH (09:03)
[2021-11-03] MEDS: Aspirin Enteric Coated 81 MG Tablet PO SCH (09:04)
[2021-11-03] MEDS: Furosemide 40 MG TABLET PO SCH (09:04)
[2021-11-03] MEDS: Metoprolol XL (24 HR) Succ 50 MG TAB.ER.24H PO SCH (09:04)
[2021-11-03] MEDS: Lactulose Oral Soln 20 GM/30 ML UDC PO SCH (09:06)
[2021-11-03] MEDS ORDERED: *HR* Warfarin 1 MG TABLET PO ONE (18:00)
== END 2021-11-03 11:34 | disposition home or self-care (01) | DRG 291 ==
LOC: 3BNU 15:11 → EMEROOARM 15:11 → SUATTDRO 10-28 14:21 → 3BNU 10-28 14:50
PROVIDERS: ADMIT Family Medicine; ATTEND Internal Medicine

== ENCOUNTER 2021-11-18 17:38 | Inpatient (IN) ==
[2021-11-18] MEDS ORDERED: Ondansetron 4 MG/2 ML VIAL IVP PRN (22:55)
[2021-11-18] MEDS ORDERED: Naloxone 0.4 MG/ML INJ IVP PRN (22:55)
[2021-11-18] MEDS ORDERED: Perflutren Lipid Microsphere 1.3 ML in 0.9 % Sodium Chloride 8.7 ML IVP PRN (22:58)
[2021-11-18] MEDS ORDERED: Furosemide 40 MG/4 ML VIAL IVP ONE (23:00)
[2021-11-19] MEDS ORDERED: Ipratropium/Albuterol Neb 3 ML IH PRN
[2021-11-19 01:07] LABS: Adenovirus Not Detected (Not Detect); Bordetella Pertussis Not Detected (Not Detect); Chlamydophila pneumoniae Not Detected (Not Detect); Coronavirus 229E Not Detected (Not Detect); Coronavirus HKU1 Not Detected (Not Detect); Coronavirus NL63 Not Detected (Not Detect); Coronavirus OC43 Not Detected (Not Detect); Human Metapneumovirus Not Detected (Not Detect); Human Rhinovirus/Enterovirus Not Detected (Not Detect); Influenza A Subtype 2009 H1 Not Detected (Not Detect); Influenza B Not Detected (Not Detect); Mycoplasma pneumoniae Not Detected (Not Detect); Parainfluenza Virus 1 Not Detected (Not Detect); Parainfluenza Virus 2 Not Detected (Not Detect); Parainfluenza Virus 3 Not Detected (Not Detect); Parainfluenza Virus 4 Not Detected (Not Detect); Respiratory Syncytial Virus Not Detected (Not Detect); SARS-CoV-2 Not Detected (Not Detect)
[2021-11-19 02:35] LABS: Basophils # 0.1 K/mcL (0.0-0.2); Basophils % 0.9 %; Eosinophils % 0.7 %; Hematocrit 49.5 % (37.5-50.1); Hemoglobin 16.2 g/dL (12.9-16.9); Immature Granulocytes % 0.2 % (0-4); Lymphocytes # 0.7 K/mcL (0.6-4.6); Lymphocytes % 12.5 %; Mean Corpuscular HGB Conc 32.7 g/dL (31.6-35.5); Mean Corpuscular Hemoglobin 28.4 pg (28.0-33.3); Mean Corpuscular Volume 86.7 fL (83.0-100.0); Mean Platelet Volume 11.2 fL (9.4-12.4); Monocytes # 0.6 K/mcL (0.0-1.3); Monocytes % 10.4 %; Neutrophils # 4.3 K/mcL (1.6-8.9); Platelet Count 186 K/mcL (140-400); Red Blood Count 5.71 M/mcL (4.19-5.50); Red Cell Distribution Width 18.4 % (11.5-14.5); Segmented Neutrophils % 75.3 %; White Blood Count 5.8 K/mcL (4.3-11.1)
[2021-11-19 02:41] LABS: INR 3.8; Prothrombin Time 42.1 Seconds (9.4-12.1)
[2021-11-19 03:04] LABS: Alanine Aminotransferase 199 Units/L (7-52); Albumin 3.7 g/dL (3.5-5.7); Albumin/Globulin Ratio 1.5 (1.1-2.2); Alkaline Phosphatase 146 Units/L (34-104); Aspartate Amino Transferase 478 Units/L (13-39); BUN/Creatinine Ratio 22 (6-26); Bilirubin,Direct 1.5 mg/dL (0.0-0.2); Bilirubin,Indirect 1.4 mg/dL (0.0-1.0); Bilirubin,Total 2.9 mg/dL (0.3-1.0); Blood Urea Nitrogen 29 mg/dL (8-23); Calcium 9.2 mg/dL (8.6-10.3); Carbon Dioxide 23 mEq/L (23-29); Chloride 99 mEq/L (98-107); Chol/HDL Ratio 3.9 (0-4.9); Cholesterol 58 mg/dL (< 200); Globulin 2.5 g/dL (2.4-3.5); Glucose 81 mg/dL (70-105); HDL Cholesterol 15 mg/dL (40-59); LDL Cholesterol,Calculated 25 mg/dL (< 100); Magnesium 2.2 mg/dL (1.6-2.6); Osmolality,Calculated 281 (280-300); Phosphorous 2.6 mg/dL (2.7-4.5); Potassium 4.3 mEq/L (3.5-5.1); Sodium 133 mEq/L (136-145); Total Protein 6.2 g/dL (6.4-8.9); Triglycerides 88 mg/dL (< 150); eGFR For African Americans > 60 (> 60); eGFR For Non-African Americans 53 (> 60)
[2021-11-19 03:10] LABS: Troponin I 0.04 ng/mL (< 0.04)
[2021-11-19 04:58] LABS: Thyroid Stimulating Hormone 3.059 mcIU/mL (0.340-5.600)
[2021-11-19] MEDS ORDERED: D5% in Water 1,000 ML IVC PRN (08:08)
[2021-11-19] MEDS ORDERED: Dextrose Gel 15 GM/37.5 ML TUBE PO PRN ×2 (08:08)
[2021-11-19] MEDS ORDERED: *HR* Dextrose 50 % in Water (Syg) 50 ML SYRINGE IVP PRN (08:08)
[2021-11-19] MEDS: Furosemide 40 MG/4 ML VIAL IVP SCH ×2 (12:52→17:08)
[2021-11-19] MEDS: Metoprolol XL (24 HR) Succ 25 MG TAB.ER.24H PO SCH (12:53)
[2021-11-19] MEDS: Acetaminophen 325 MG TABLET PO PRN ×2 (14:24→23:23)
[2021-11-19] MEDS ORDERED: Warfarin perPT PO PRN (18:00)
[2021-11-20 04:06] LABS: Hematocrit 52.2 % (37.5-50.1); Hemoglobin 16.7 g/dL (12.9-16.9); Mean Corpuscular Hemoglobin 28.2 pg (28.0-33.3); Mean Corpuscular Volume 88.2 fL (83.0-100.0); Mean Platelet Volume 10.5 fL (9.4-12.4); Platelet Count 181 K/mcL (140-400); Red Blood Count 5.92 M/mcL (4.19-5.50); Red Cell Distribution Width 18.5 % (11.5-14.5); White Blood Count 5.5 K/mcL (4.3-11.1)
[2021-11-20 04:14] LABS: INR 3.3
[2021-11-20 05:21] LABS: Alanine Aminotransferase 212 Units/L (7-52); Albumin 3.7 g/dL (3.5-5.7); Albumin/Globulin Ratio 1.4 (1.1-2.2); Alkaline Phosphatase 144 Units/L (34-104); Aspartate Amino Transferase 488 Units/L (13-39); BUN/Creatinine Ratio 22 (6-26); Bilirubin,Total 3.1 mg/dL (0.3-1.0); Blood Urea Nitrogen 29 mg/dL (8-23); Calcium 9.2 mg/dL (8.6-10.3); Carbon Dioxide 26 mEq/L (23-29); Chloride 97 mEq/L (98-107); Globulin 2.7 g/dL (2.4-3.5); Glucose 79 mg/dL (70-105); Osmolality,Calculated 285 (280-300); Potassium 4.5 mEq/L (3.5-5.1); Sodium 135 mEq/L (136-145); Total Protein 6.4 g/dL (6.4-8.9); eGFR For African Americans > 60 (> 60); eGFR For Non-African Americans 55 (> 60)
[2021-11-20] MEDS: Metoprolol XL (24 HR) Succ 25 MG TAB.ER.24H PO SCH (09:42)
[2021-11-20] MEDS: Furosemide 40 MG/4 ML VIAL IVP SCH (09:42)
[2021-11-20] MEDS ORDERED: Furosemide 40 MG/4 ML VIAL IVP SCH (17:00)
[2021-11-20] MEDS ORDERED: Naloxone 0.4 MG/ML INJ IVP PRN (17:04)
[2021-11-20] MEDS: *HR* OxyCODONE Immed Rel 5 MG TABLET PO PRN ×2 (17:34→23:41)
[2021-11-20] MEDS ORDERED: Iopamidol - 370 500 ML MLS IVP ONE ×3 (17:54→18:12)
[2021-11-20] MEDS ORDERED: *HR* Warfarin 1 MG TABLET PO ONE (18:00)
[2021-11-20] MEDS ORDERED: methylPREDNISolone 125 MG/2 ML VIAL IVP ONE (18:39)
[2021-11-20 19:55] LABS: Hepatitis B Surface Antigen Nonreactive (Nonreactive)
[2021-11-20 20:24] LABS: Hepatitis C Virus Antibody Nonreactive (Nonreactive)
[2021-11-20 20:25] LABS: Hepatitis B Core IgM Nonreactive (Nonreactive)
[2021-11-20 20:27] LABS: Hepatitis A Antibody IgM Nonreactive (Nonreactive)
[2021-11-20] MEDS ORDERED: Metoprolol XL (24 HR) Succ 25 MG TAB.ER.24H PO SCH (21:00)
[2021-11-21] MEDS: *HR* OxyCODONE Immed Rel 5 MG TABLET PO PRN ×3 (05:47→20:13)
[2021-11-21 06:24] LABS: Basophils % 0.2 %; Eosinophils % 0.4 %; Hematocrit 53.9 % (37.5-50.1); Hemoglobin 17.2 g/dL (12.9-16.9); Immature Granulocytes % 0.5 % (0-4); Lymphocytes # 0.3 K/mcL (0.6-4.6); Lymphocytes % 5.5 %; Mean Corpuscular HGB Conc 31.9 g/dL (31.6-35.5); Mean Corpuscular Hemoglobin 28.2 pg (28.0-33.3); Mean Corpuscular Volume 88.2 fL (83.0-100.0); Mean Platelet Volume 10.9 fL (9.4-12.4); Monocytes # 0.1 K/mcL (0.0-1.3); Monocytes % 1.3 %; Neutrophils # 5.1 K/mcL (1.6-8.9); Platelet Count 205 K/mcL (140-400); Red Blood Count 6.11 M/mcL (4.19-5.50); Segmented Neutrophils % 92.1 %; White Blood Count 5.5 K/mcL (4.3-11.1)
[2021-11-21 06:31] LABS: INR 2.7; Prothrombin Time 29.6 Seconds (9.4-12.1)
[2021-11-21] MEDS ORDERED: Albumin 25% 25gram/100mL 25 GM/100 ML IV.SOLN IVPB STA (06:59)
[2021-11-21 07:14] LABS: BUN/Creatinine Ratio 27 (6-26); Blood Urea Nitrogen 35 mg/dL (8-23); Calcium 9.5 mg/dL (8.6-10.3); Carbon Dioxide 19 mEq/L (23-29); Chloride 94 mEq/L (98-107); Glucose 131 mg/dL (70-105); Osmolality,Calculated 288 (280-300); Potassium 5.4 mEq/L (3.5-5.1); Sodium 134 mEq/L (136-145); eGFR For African Americans > 60 (> 60); eGFR For Non-African Americans 54 (> 60)
[2021-11-21 07:24] LABS: Albumin/Globulin Ratio 1.4 (1.1-2.2); Bilirubin,Total 3.4 mg/dL (0.3-1.0); Globulin 2.8 g/dL (2.4-3.5); Total Protein 6.8 g/dL (6.4-8.9)
[2021-11-21 07:32] LABS: Bilirubin,Direct 1.9 mg/dL (0.0-0.2); Bilirubin,Indirect 1.5 mg/dL (0.0-1.0)
[2021-11-21] MEDS ORDERED: Sodium Bicarbonate 75 MEQ in 0.45 % Sodium Chloride 1,000 ML IVC SCH (08:00)
[2021-11-21] MEDS: Metoprolol XL (24 HR) Succ 25 MG TAB.ER.24H PO SCH (08:36)
[2021-11-21] MEDS ORDERED: Metoprolol XL (24 HR) Succ 25 MG TAB.ER.24H PO SCH (09:00)
[2021-11-21] MEDS: Sodium Bicarbonate 75 MEQ in 0.45 % Sodium Chloride 1,000 ML IVC SCH (12:51)
[2021-11-21] MEDS ORDERED: *HR* OxyCODONE Immed Rel 5 MG TABLET PO PRN (14:59)
[2021-11-21] MEDS ORDERED: Lactulose Oral Soln 20 GM/30 ML UDC PO SCH (15:00)
[2021-11-21] MEDS ORDERED: *HR* Warfarin 2 MG TABLET PO ONE (18:00)
[2021-11-22 00:31] LABS: Bacteria,Urine Few per hpf (None-Few); Bilirubin,Urine Small (Negative); Blood,Urine Trace (Negative); Clarity,Urine Clear (Clear); Color,Urine Yellow (Yellow); Glucose,Urine (UA) Normal (Normal); Hyaline Casts,Urine Many per lpf (None Seen); Ketones,Urine 10 mg/dL (Negative); Leukocyte Esterase,Urine Trace (Negative); Mucus,Urine Few per lpf (None-Few); Nitrite,Urine Negative (Negative); PH,Urine 5.5 pH Units (5.0-8.0); Protein,Urine 30 mg/dL (Neg-Trace); RBC,Urine 0-3 per hpf (0-3); Specific Gravity,Urine > 1.030 (1.010-1.025); Squamous Epithelial Cell,Urine Few per hpf (None-Few)
[2021-11-22 05:12] LABS: Basophils % 0.1 %; Hematocrit 51.4 % (37.5-50.1); Hemoglobin 16.3 g/dL (12.9-16.9); Immature Granulocytes % 0.5 % (0-4); Lymphocytes # 0.4 K/mcL (0.6-4.6); Lymphocytes % 5.2 %; Mean Corpuscular HGB Conc 31.7 g/dL (31.6-35.5); Mean Corpuscular Hemoglobin 28.4 pg (28.0-33.3); Mean Corpuscular Volume 89.5 fL (83.0-100.0); Monocytes # 0.6 K/mcL (0.0-1.3); Monocytes % 8.1 %; Neutrophils # 6.8 K/mcL (1.6-8.9); Platelet Count 203 K/mcL (140-400); Red Blood Count 5.74 M/mcL (4.19-5.50); Red Cell Distribution Width 19.1 % (11.5-14.5); Segmented Neutrophils % 86.1 %; White Blood Count 7.9 K/mcL (4.3-11.1)
[2021-11-22 05:18] LABS: INR 3.9
[2021-11-22 05:27] LABS: Calcium 9.6 mg/dL (8.6-10.3); Potassium 5.4 mEq/L (3.5-5.1)
[2021-11-22 05:35] LABS: Prothrombin Time 43.5 Seconds (9.4-12.1)
[2021-11-22 05:58] LABS: Estimated Average Glucose 160 mg/dl; Hemoglobin A1C 7.2 %
[2021-11-22] MEDS: Metoprolol XL (24 HR) Succ 25 MG TAB.ER.24H PO SCH (09:33)
[2021-11-22] MEDS: *HR* OxyCODONE Immed Rel 5 MG TABLET PO PRN (09:33)
[2021-11-22] MEDS: Sodium Bicarbonate 75 MEQ in 0.45 % Sodium Chloride 1,000 ML IVC SCH (09:34)
[2021-11-22] MEDS ORDERED: SODIUM ZIRCONIUM CYCLOSILICATE 5 GM POWD.PACK PO SCH ×2 (11:15→12:30)
[2021-11-22] MEDS: 0.9 % Sodium Chloride 1,000 ML IVC SCH (12:19)
[2021-11-22] MEDS: Insulin LISPRO 300 UNITS/3 ML VIAL SUBQ SCH ×2 (12:26→17:41)
[2021-11-22] MEDS ORDERED: Acetaminophen IV 500 MG/50 ML BAG IVPB ONE (14:26)
[2021-11-23] MEDS: Insulin LISPRO 300 UNITS/3 ML VIAL SUBQ SCH ×4 (01:34→18:10)
[2021-11-23 03:20] LABS: Basophils % 0.1 %; Eosinophils % 0.4 %; Hematocrit 51.3 % (37.5-50.1); Hemoglobin 16.2 g/dL (12.9-16.9); Immature Granulocytes % 0.3 % (0-4); Lymphocytes # 0.7 K/mcL (0.6-4.6); Lymphocytes % 10.8 %; Mean Corpuscular HGB Conc 31.6 g/dL (31.6-35.5); Mean Corpuscular Hemoglobin 27.9 pg (28.0-33.3); Mean Corpuscular Volume 88.4 fL (83.0-100.0); Mean Platelet Volume 11.1 fL (9.4-12.4); Monocytes # 0.8 K/mcL (0.0-1.3); Monocytes % 11.2 %; Neutrophils # 5.3 K/mcL (1.6-8.9); Platelet Count 214 K/mcL (140-400); Red Cell Distribution Width 19.1 % (11.5-14.5); Segmented Neutrophils % 77.2 %; White Blood Count 6.9 K/mcL (4.3-11.1)
[2021-11-23 03:26] LABS: INR 4.9; Prothrombin Time 54.1 Seconds (9.4-12.1)
[2021-11-23 04:25] LABS: Albumin 3.8 g/dL (3.5-5.7); Albumin/Globulin Ratio 1.6 (1.1-2.2); Bilirubin,Direct 1.7 mg/dL (0.0-0.2); Bilirubin,Indirect 1.4 mg/dL (0.0-1.0); Bilirubin,Total 3.1 mg/dL (0.3-1.0); Calcium 9.3 mg/dL (8.6-10.3); Globulin 2.4 g/dL (2.4-3.5); Potassium 4.4 mEq/L (3.5-5.1); Total Protein 6.2 g/dL (6.4-8.9)
[2021-11-23] MEDS: *HR* OxyCODONE Immed Rel 5 MG TABLET PO PRN ×3 (04:52→18:20)
[2021-11-23] MEDS: 0.9 % Sodium Chloride 1,000 ML IVC SCH (10:12)
[2021-11-23] MEDS: Metoprolol XL (24 HR) Succ 25 MG TAB.ER.24H PO SCH (10:12)
[2021-11-23] MEDS ORDERED: 0.9 % Sodium Chloride 1,000 ML IVC SCH (12:16)
[2021-11-24] MEDS: Insulin LISPRO 300 UNITS/3 ML VIAL SUBQ SCH ×3 (01:00→14:08)
[2021-11-24 02:39] LABS: Basophils % 0.2 %; Eosinophils % 0.2 %; Hematocrit 54.7 % (37.5-50.1); Hemoglobin 17.2 g/dL (12.9-16.9); Immature Granulocytes % 0.4 % (0-4); Lymphocytes # 0.6 K/mcL (0.6-4.6); Lymphocytes % 12.2 %; Mean Corpuscular HGB Conc 31.4 g/dL (31.6-35.5); Mean Corpuscular Hemoglobin 27.9 pg (28.0-33.3); Mean Corpuscular Volume 88.7 fL (83.0-100.0); Mean Platelet Volume 10.5 fL (9.4-12.4); Monocytes # 0.8 K/mcL (0.0-1.3); Monocytes % 14.3 %; Neutrophils # 3.8 K/mcL (1.6-8.9); Platelet Count 205 K/mcL (140-400); Red Blood Count 6.17 M/mcL (4.19-5.50); Red Cell Distribution Width 19.4 % (11.5-14.5); Segmented Neutrophils % 72.7 %; White Blood Count 5.2 K/mcL (4.3-11.1)
[2021-11-24 03:03] LABS: INR 4.4; Prothrombin Time 48.9 Seconds (9.4-12.1)
[2021-11-24 03:08] LABS: Alanine Aminotransferase 169 Units/L (7-52); Albumin 3.7 g/dL (3.5-5.7); Albumin/Globulin Ratio 1.5 (1.1-2.2); Alkaline Phosphatase 129 Units/L (34-104); Aspartate Amino Transferase 208 Units/L (13-39); Bilirubin,Direct 1.8 mg/dL (0.0-0.2); Bilirubin,Indirect 1.8 mg/dL (0.0-1.0); Bilirubin,Total 3.6 mg/dL (0.3-1.0); Blood Urea Nitrogen 56 mg/dL (8-23); Calcium 9.7 mg/dL (8.6-10.3); Carbon Dioxide 29 mEq/L (23-29); Chloride 95 mEq/L (98-107); Globulin 2.5 g/dL (2.4-3.5); Glucose 106 mg/dL (70-105); Osmolality,Calculated 294 (280-300); Potassium 4.9 mEq/L (3.5-5.1); Sodium 134 mEq/L (136-145); Total Protein 6.2 g/dL (6.4-8.9)
[2021-11-24 04:01] LABS: BUN/Creatinine Ratio 42 (6-26); eGFR For African Americans > 60 (> 60); eGFR For Non-African Americans 53 (> 60)
[2021-11-24 07:16] VITALS: O2SAT 95
[2021-11-24] MEDS: Metoprolol XL (24 HR) Succ 25 MG TAB.ER.24H PO SCH (09:21)
[2021-11-24] MEDS: *HR* OxyCODONE Immed Rel 5 MG TABLET PO PRN (11:02)
[2021-11-24 11:33] VITALS: BP 119/85; PULSE 78; TEMP 97.6
== END 2021-11-24 17:14 | DRG 280 ==
LOC: 2ANU → SUATTDRO 22:55
PROVIDERS: ADMIT Family Medicine; ATTEND Internal Medicine